=== PATIENT | female | born 1955 | race Caucasian/White ===

== ENCOUNTER → 2019-06-22 13:35 | Outpatient (CLI) | payer OTHER, SELFPAY ==
--- NOTE | ~2019-06-22 | MR_ITS ---
EXAMINATION: MR hand RT wo con DATE: 06/22/2019 14:26 INDICATION: Nondisplaced fracture of the right thumb. TECHNIQUE: Magnetic resonance imaging (MRI) of the right hand was performed without intravenous contr ast centered on the right thumb. The fifth digit and portions of the distal second fourth digits are excluded from the [id number]. Sequences included axial, sagittal and coronal T1-weighted FSE and T 2-weighted FS FSE . COMPARISON: None FINDINGS: Oblique linear low signal intensity minimally displaced intra-articular fracture at the base of the r ight first distal phalanx. The fracture can be best appreciated on coronal series 6, images 18-19 and at the articular surface on axial series 4 & 5, image 10. Likely reactive small joint effusion at th e first interphalangeal joint. Suggestion of at least mild osteoarthritis at the first interphalangea l joint with mild subarticular edema and small marginal osteophytes at both sides of the joint space. Additional mild osteoarthritis at the triscaphe, first carpometacarpal and at the visualized metacar pophalangeal and interphalangeal joints. No other fractures identified. The collateral ligament compl ex at the first metacarpophalangeal and interphalangeal joints appear to remain normal. There is mild thickening of the radial collateral ligament at the second metacarpophalangeal joint and to a lesser degree third metacarpophalangeal joint without discrete tear or associated edema suggesting chronic scarring. There is a small erosion versus suture anchor at the second metacarpal head footplate of th e radial collateral ligament which suggests either prior surgical repair or erosion in the setting of an inflammatory arthritis. Nonspecific mild increased signal along the flexor tendons to the second digit at the level of the mid to distal aspect of the proximal phalanx without evident thickening of the tendons or tear defect. IMPRESSION: 1. Minimally displaced intra-articular fracture at the base of the right first distal phalanx. 2. Mild polyarticular osteoarthritis at the radial aspect of the carpus and multiple metacarpal phala ngeal and interphalangeal joints. 3. Thickening of the radial collateral ligaments at the second and third metacarpophalangeal joints w ithout evident tear defect or surrounding edema to suggest acute injury. Small osseous defect at the insertion along the radial head of the second metatarsal which could represent either secondary erosi on related to prior trauma, primarily erosion related to inflammatory arthritis or suture anchor site s related to prior repair. Correlate with clinical and surgical history. 4. Increased signal along the flexor tendons to the second digit at the level of the mid to distal as pect of the proximal phalanx without significant thickening of the tendon consistent with mild tendin opathy without discrete tear. Reviewed, dictated and finalized at location A. FOUNDER AND CHIEF STRATEGY OFFICER IMPRESSION: 1. Minimally displaced intra-articular fracture at the base of the right first distal phalanx. 2. Mild polyarticular osteoarthritis at the radial aspect of the carpus and mul tiple metacarpal phalangeal and interphalangeal joints. 3. Thickening of the radial collateral ligaments at the second and third metaca rpophalangeal joints without evident tear defect or surrounding edema to sugges t acute injury. Small osseous defect at the insertion along the radial head of the second metatarsal which could represent either secondary erosion related to prior trauma, primarily erosion related to inflammatory arthritis or suture an chor sites related to prior repair. Correlate with clinical and surgical histor y. 4. Increased signal along the flexor tendons to the second digit at the level o f the mid to distal aspect of
== END ==
PROVIDERS: Visit Provider Surgery Plastic and Reconstructive Surgery
DX: S62.524A Nondisplaced fracture of distal phalanx of right thumb, initial encounter for closed fracture (principal); X58.XXXA Exposure to other specified factors, initial encounter; M19.071 Primary osteoarthritis, right ankle and foot
CPT/HCPCS: 73218

== ENCOUNTER → 2019-10-16 16:11 | Outpatient (REF) | payer OTHER, SELFPAY | LOC: ANHLAB 16:11 | PROVIDERS: PCP Family Medicine; Visit Provider Nurse Practitioner | DX: R22.9 Localized swelling, mass and lump, unspecified (principal) | CPT/HCPCS: 88304 ==

== ENCOUNTER → 2020-01-15 14:41 | Outpatient (REF) | payer MEDICARE, SELFPAY | LOC: ANHLAB 14:41 | PROVIDERS: PCP Family Medicine; Visit Provider Nurse Practitioner | DX: D23.72 Other benign neoplasm of skin of left lower limb, including hip (principal); D23.61 Other benign neoplasm of skin of right upper limb, including shoulder | CPT/HCPCS: 88304; 88305 ==

== ENCOUNTER → 2020-06-29 07:06 | Outpatient (CLI) | payer MEDICARE, SELFPAY ==
[2020-06-29 18:54] LABS: SARS-CoV-2 RNA PCR Negative
== END ==
PROVIDERS: PCP Family Medicine; Visit Provider Physician Assistant
DX: R05 Cough (principal); Z20.822 Contact with and (suspected) exposure to COVID-19
CPT/HCPCS: C9803; U0003; U0005

== ENCOUNTER → 2020-07-23 04:05 | Outpatient (CLI) | payer MEDICARE, SELFPAY ==
[2020-07-23 19:03] LABS: SARS-CoV-2 RNA PCR Negative
== END ==
PROVIDERS: PCP Family Medicine; Visit Provider Internal Medicine Gastroenterology
DX: Z01.812 Encounter for preprocedural laboratory examination (principal); Z20.822 Contact with and (suspected) exposure to COVID-19
CPT/HCPCS: C9803; U0003; U0005

== ENCOUNTER 2020-07-26 01:05 | Day surgery (SDC) | payer MEDICARE, SELFPAY ==
[2020-07-16 10:27] VITALS: BMI 35.7
[2020-07-26 06:18] VITALS: BP 128/75; PULSE 73; RESP 18; TEMP 35.6; O2SAT 98
[2020-07-26] MEDS: LACTATED RINGERS 1,000 ML 150 ML IV CONT (06:33)
[2020-07-26 06:36] LABS: Glucose Point of Care 114 (65-105)
--- NOTE | 2020-07-26 07:01 | WPDANESEPPF ---
Anes - Initial Pre Proc Eval Procedure: Operation Date: 07/26/20 07:30 Proposed Procedures p Screening Colonoscopy - Chago Duvall MD Date/Time: 07/26/20 07:01 Surgeon: Chago Duvall MD Pre Op Diagnosis: neoplasm screening Patient Data Age: 64 Gender: F Height: 5 ft Weight: 82.3 kg Last Vital Signs Temp 35.6 C L 07/26/20 06:18 Pulse 73 07/26/20 06:18 Resp 18 07/26/20 06:18 BP 128/75 07/26/20 06:18 Pulse Ox 98 07/26/20 06:18 Allergies Allergy/AdvReac Type Severity Reaction Status Date / Time No Known Allergies Allergy Verified 07/16/20 10:22 Home Medications Medication Instructions Recorded Confirmed Type cetirizine 10 mg capsule 10 mg PO DAILY 03/13/19 07/16/20 History chlorpheniramine maleate 4 mg 4 mg PO Q6H 03/13/19 07/16/20 History tablet multivitamin 1 tablet PO DAILY 03/13/19 07/16/20 History apremilast 30 mg tablet 30 mg PO QAM AND QPM #60 tablet 05/17/19 07/16/20 Rx blood sugar diagnostic #10 each 06/09/19 06/28/20 History lancets 33 gauge #100 each 06/09/19 06/28/20 History omeprazole 20 mg capsule,delayed See Rx Instructions .ROUTE 09/07/19 07/16/20 Rx release .COMPLEX #30 cap montelukast 10 mg tablet 10 mg PO DAILY #90 tablet 11/17/19 07/16/20 Rx atorvastatin 20 mg tablet 20 mg PO QPM tablet 02/28/20 07/16/20 History metformin 500 mg tablet,extended 500 mg PO BID 90 Days #180 tablet 02/28/20 07/16/20 Rx release 24 hr duloxetine 60 mg capsule,delayed 60 mg PO DAILY #90 cap 03/01/20 07/16/20 Rx release methocarbamol 750 mg tablet 750 mg PO TID #90 tablet 03/01/20 07/16/20 Rx ergocalciferol (vitamin D2) 1,250 See Rx Instructions .ROUTE 03/05/20 07/16/20 Rx mcg (50,000 unit) capsule .COMPLEX #12 cap spironolactone 25 mg tablet 25 mg PO DAILY #90 tablet 05/06/20 07/16/20 Rx levothyroxine 100 mcg tablet 100 mcg PO QAM 90 Days #90 tablet 05/10/20 07/16/20 Rx sodium,potassium,mag sulfates See Rx Instructions .ROUTE 05/24/20 06/28/20 Rx [Suprep Bowel Prep Kit] .COMPLEX #1 ml folic acid 1 mg tablet See Rx Instructions .ROUTE 06/19/20 07/16/20 Rx .COMPLEX #90 tablet fluticasone propionate 50 1 spray INTRANASAL DAILY #16 g 06/28/20 07/16/20 Rx mcg/actuation nasal spray,suspension losartan 25 mg tablet 25 mg PO DAILY 90 Days #90 tablet 07/10/20 07/16/20 Rx atenolol 50 mg PO DAILY 07/16/20 07/16/20 History Laboratory Tests 07/26/20 06:34 POC Capillary Glucose 114 mg/dl H mg/dl (65-105) Patient hx anesthesia problems: none Family hx anesthesia problems: none PMFSH Past Medical History Medical History BCC (basal cell carcinoma of skin) Generalized osteoarthritis of multiple sites Hypothyroidism, acquired Lymphedema Psoriasis Type 2 diabetes mellitus with hyperglycemia, without long-term current use of insulin Vitamin D deficiency Surgical History Surgical History History of basal cell carcinoma excision History of bilateral breast biopsy History of hand surgery R hand reconstruction History of thyroidectomy Family History Family History Sibling Patient's sister is in good health Patient's brother is in good health Family history of lymphoma, Onset Age: 31 Patient's brother is Mother Family history of diabetes mellitus in first degree relative Family history of irritable bowel syndrome Family history of thyroid disease Family history of cataracts Family history of anemia Father Family history of diabetes mellitus in first degree relative Patient's father is Other Diabetes mellitus Family history of allergic disorder Family history of arthritis Family history of attention deficit hyperactivity disorder (ADHD) Family history of malignant neoplasm Social History Social History (Reviewed 05/15
--- NOTE | 2020-07-26 07:11 | PM.HPGS ---
History of Present Illness History of Present Illness Consent: Risks, benefits, and alternatives have been discussed and questions answered. Patient agrees to proceed with procedure. Chief complaint: neoplasm screening Narrative: Radha Castaneda is a 64 year old female For screening colonoscopy Review of Systems Review of Systems: All systems reviewed & are unremarkable except as noted in HPI and below PMFSH Past Medical History Medical History BCC (basal cell carcinoma of skin) Generalized osteoarthritis of multiple sites Hypothyroidism, acquired Lymphedema Psoriasis Type 2 diabetes mellitus with hyperglycemia, without long-term current use of insulin Vitamin D deficiency Surgical History Surgical History History of basal cell carcinoma excision History of bilateral breast biopsy History of hand surgery R hand reconstruction History of thyroidectomy Family History Family History Sibling Patient's sister is in good health Patient's brother is in good health Family history of lymphoma, Onset Age: 31 Patient's brother is Mother Family history of diabetes mellitus in first degree relative Family history of irritable bowel syndrome Family history of thyroid disease Family history of cataracts Family history of anemia Father Family history of diabetes mellitus in first degree relative Patient's father is Other Diabetes mellitus Family history of allergic disorder Family history of arthritis Family history of attention deficit hyperactivity disorder (ADHD) Family history of malignant neoplasm Social History Social History Smoking status: Never smoker Second hand tobacco smoke exposure: No Alcohol intake: never Substance use: never Substance use type: does not use Living arrangements: with family Spiritual care concerns: No Meds Home Medications and Allergies Home Medications Medication Instructions Recorded Confirmed Type cetirizine 10 mg capsule 10 mg PO DAILY 03/13/19 07/16/20 History chlorpheniramine maleate 4 mg 4 mg PO Q6H 03/13/19 07/16/20 History tablet multivitamin 1 tablet PO DAILY 03/13/19 07/16/20 History apremilast 30 mg tablet 30 mg PO QAM AND QPM #60 tablet 05/17/19 07/16/20 Rx blood sugar diagnostic #10 each 06/09/19 06/28/20 History lancets 33 gauge #100 each 06/09/19 06/28/20 History omeprazole 20 mg capsule,delayed See Rx Instructions .ROUTE 09/07/19 07/16/20 Rx release .COMPLEX #30 cap montelukast 10 mg tablet 10 mg PO DAILY #90 tablet 11/17/19 07/16/20 Rx atorvastatin 20 mg tablet 20 mg PO QPM tablet 02/28/20 07/16/20 History metformin 500 mg tablet,extended 500 mg PO BID 90 Days #180 tablet 02/28/20 07/16/20 Rx release 24 hr duloxetine 60 mg capsule,delayed 60 mg PO DAILY #90 cap 03/01/20 07/16/20 Rx release methocarbamol 750 mg tablet 750 mg PO TID #90 tablet 03/01/20 07/16/20 Rx ergocalciferol (vitamin D2) 1,250 See Rx Instructions .ROUTE 03/05/20 07/16/20 Rx mcg (50,000 unit) capsule .COMPLEX #12 cap spironolactone 25 mg tablet 25 mg PO DAILY #90 tablet 05/06/20 07/16/20 Rx levothyroxine 100 mcg tablet 100 mcg PO QAM 90 Days #90 tablet 05/10/20 07/16/20 Rx sodium,potassium,mag sulfates See Rx Instructions .ROUTE 05/24/20 06/28/20 Rx [Suprep Bowel Prep Kit] .COMPLEX #1 ml folic acid 1 mg tablet See Rx Instructions .ROUTE 06/19/20 07/16/20 Rx .COMPLEX #90 tablet fluticasone propionate 50 1 spray INTRANASAL DAILY #16 g 06/28/20 07/16/20 Rx mcg/actuation nasal spray,suspension losartan 25 mg tablet 25 mg PO DAILY 90 Days #90 tablet 07/10/20 07/16/20 Rx atenolol 50 mg PO DAILY 07/16/20 07/16/20 History Allergies Allergy/AdvReac Type Severity Reaction Status Date /
[2020-07-26 07:57] VITALS: BP 107/70; PULSE 72; RESP 21; O2SAT 100
[2020-07-26 08:07] VITALS: BP 103/66; PULSE 67; RESP 13; O2SAT 100
[2020-07-26 08:17] VITALS: BP 116/72; PULSE 68; RESP 16; O2SAT 100
== END 2020-07-26 08:45 | disposition home or self-care (01) ==
PROVIDERS: PCP Family Medicine; Visit Provider Internal Medicine Gastroenterology
PROC: 0DJD8ZZ Inspection of Lower Intestinal Tract, Via Natural or Artificial Opening Endoscopic (ICD-10-PCS; CPT 45378; principal; 2020-07-26 07:30)
DX: Z12.11 Encounter for screening for malignant neoplasm of colon (principal); D12.4 Benign neoplasm of descending colon; K63.5 Polyp of colon; Z79.84 Long term (current) use of oral hypoglycemic drugs; E03.9 Hypothyroidism, unspecified; M19.90 Unspecified osteoarthritis, unspecified site; I89.0 Lymphedema, not elsewhere classified; E55.9 Vitamin D deficiency, unspecified; E11.65 Type 2 diabetes mellitus with hyperglycemia; L40.9 Psoriasis, unspecified; E66.9 Obesity, unspecified; Z68.35 Body mass index [BMI] 35.0-35.9, adult; Z85.828 Personal history of other malignant neoplasm of skin
CPT/HCPCS: 45385; 45380; 82948; 88305; J2704; J7120

== ENCOUNTER 2021-03-28 09:00 | Outpatient (CLI) | payer MEDICARE, SELFPAY ==
--- NOTE | ~2021-03-28 | MM_ITS ---
EXAMINATION: MM screening seema BI w hayley HISTORY: Screening TECHNIQUE: Craniocaudal and mediolateral oblique 3-D tomosynthesis images were obtained and synthetic 2-D images were generated. CAD analysis was submitted and interpreted. COMPARISON: Comparison to multiple prior studies sequentially, with oldest reviewed study dated 02/17. BREAST PARENCHYMAL COMPOSITION: There are scattered areas of fibroglandular density. FINDINGS: There is no evidence of suspicious mass, calcification, or architectural distortion to sugg est malignancy in either breast. There has been no suspicious interval change. IMPRESSION: 1. No mammographic evidence of malignancy. 2. Recommend routine screening mammography in one year. BI-RADS Category 1: Negative Reviewed, dictated and finalized at location A. ARYNGOLOGY NURSE
--- NOTE | ~2021-03-28 | DEXA_ITS ---
Bone Density Report Name: PINKY ZAPATA Age: 65 Sex: Female Ethnicity: White Date of : 1955 Indication: postmenopausal; height loss; hysterectomy; rheumatoid arthritis; Referring Provider: Sharon Yanes Study: Bone densitometry was performed. Exam Date: March 28, 2021 Accession number: [id number] Bone Density: Region BMD T-score Z-score Classification AP Spine (L1-L4) 1.007 -0.4 1.5 Normal Femoral Neck (Left) 0.838 -0.1 1.5 Normal Total Hip (Left) 1.011 0.6 1.9 Normal Total Hip Bilateral Avg 1.014 0.6 1.9 Normal Femoral Neck (Right) 0.782 -0.6 1.0 Normal Total Hip (Right) 1.017 0.6 1.9 Normal World Health Organization criteria for BMD impression classify patients as: Normal (T-score at or above -1.0), Osteopenia (T-score between -1.0 and -2.5), or Osteoporosis (T-score at or below -2.5). 10-year Fracture Risk: FRAX not reported because: All T-scores for Spine Total, Hip Total, Femoral Neck at or above -1.0 Previous Exams: Region Exam Age BMD T-score BMD Change BMD Change Date g/cm2 vs Baseline vs Previous AP Spine(L1-L4) 03/28/2021 65 1.007 -0.4 -0.079(-7.3%)# -0.003(-0.3%) 09/05/2018 62 1.010 -0.3 -0.076(-7.0%)# -0.009(-0.8%)# 03/31/2014 58 1.018 -0.3 -0.067(-6.2%)# -0.068(-6.2%)# 06/04/2008 52 1.086 0.4 Total Hip(Left) 03/28/2021 65 1.011 0.6 -0.042(-4.0%)# -0.024(-2.3%) 09/05/2018 62 1.035 0.8 -0.018(-1.7%)# -0.014(-1.4%)# 03/31/2014 58 1.049 0.9 -0.004(-0.4%)# -0.004(-0.4%)# 06/04/2008 52 1.053 0.9 Total Hip(Right) 03/28/2021 65 1.017 0.6 0.015(1.5%)# -0.038(-3.6%)* 09/05/2018 62 1.055 0.9 0.054(5.4%)# -0.025(-2.3%)# 03/31/2014 58 1.080 1.1 0.079(7.9%)# 0.079(7.9%)# 06/04/2008 52 1.001 0.5 *Denotes significance at 95% confidence level, LSC for AP Spine = 0.022 g/cm2, LSC for Total Hip = 0.027 g/cm2 Clinical Information Provided by Patient: Has rheumatoid arthritis Has used the following medications: Vitamin D Has the following medical conditions: Hysterectomy Patient maximum height was 60 Menopause Age: 44 Drinks caffeinated beverages Onset of menses at age 11 Number of children 2 Impression: The patient has normal bone mass. The BMD for the Total Hip(Right) decreased, changing by -3.6% since the last DXA exam. Discussion: BONE DENSITY IS ABOVE THE MINIMUM DESIRABLE LEVEL AT ALL SKELETAL SITES TESTED. This patient?s bone min
== END 2021-03-28 09:01 | disposition home or self-care (01) ==
PROVIDERS: PCP Family Medicine; Visit Provider Internal Medicine Endocrinology, Diabetes & Metabolism
DX: Z12.31 Encounter for screening mammogram for malignant neoplasm of breast (principal); Z78.0 Asymptomatic menopausal state
CPT/HCPCS: 77063; 77067; 77080

== ENCOUNTER → 2021-04-29 00:55 | Outpatient (CLI) | payer MEDICARE, SELFPAY ==
[2021-04-29 15:13] LABS: Influenza Control Positive
[2021-04-29 21:02] LABS: SARS-CoV-2 RNA PCR Negative
== END ==
PROVIDERS: PCP Family Medicine; Visit Provider Physician Assistant
DX: R50.9 Fever, unspecified (principal); Z20.822 Contact with and (suspected) exposure to COVID-19
CPT/HCPCS: 87804; C9803; U0003; U0005

== ENCOUNTER → 2022-08-04 09:28 | Outpatient (CLI) | payer MEDICARE, SELFPAY ==
--- NOTE | ~2022-08-04 | XR_ITS ---
Clinical Indication: Cough PA and lateral views of the chest: Comparison: 01/22/2015 Findings: The lungs are clear, without evidence of focal consolidation or pleural effusion. Cardiome diastinal silhouette is within normal limits. Bones and soft tissues are unremarkable. Impression: Normal chest. Reviewed, dictated and finalized at [facility]. Impression: Normal chest.
== END ==
PROVIDERS: PCP Family Medicine; Visit Provider Physician Assistant Medical
DX: R06.2 Wheezing (principal); R05.9 Cough, unspecified; E11.9 Type 2 diabetes mellitus without complications
CPT/HCPCS: 71046

== ENCOUNTER → 2022-08-06 13:07 | Outpatient (CLI) | payer MEDICARE, SELFPAY ==
--- NOTE | ~2022-08-06 | US_ITS ---
US abdomen complete EXAMINATION: US Abdomen Complete INDICATION: Abdomen pain and swelling. Family history of pancreatic cancer. PROCEDURE: Realtime High Resolution abdomen ultrasound. COMPARISON: CT dated 01/03/2009 FINDINGS: Gallbladder within normal limits. No gallstones, pericholecystic fluid, gallbladder wall t hickening or biliary dilatation. Common bile duct measures 5.8 mm. Liver echotexture within normal limits without focal mass. Pancreas within normal limits. Pancreati c tail is obscured by bowel gas. Spleen is unremarkeable. Renal echotexture is within normal limits bilaterally without hydronephrosis, contour deforming mass or renal stone. Right kidney measures 11.5 cm. Left kidney measures 10.8 cm. Visualized aspects of the aorta and IVC are within normal limits. Portal vein is patent. No sonograph ic Carroll's sign indicated by the technologist. IMPRESSION: 1: Normal abdominal ultrasound. Reviewed, dictated and finalized at location A.
== END ==
PROVIDERS: PCP Family Medicine; Visit Provider Family Medicine
DX: R19.00 Intra-abdominal and pelvic swelling, mass and lump, unspecified site (principal)
CPT/HCPCS: 76700

== ENCOUNTER 2022-11-30 12:53 | Outpatient (CLI) | payer MEDICARE, SELFPAY ==
[2022-11-30 14:46] LABS: Influenza A QL RT-PCR Negative (Negative); Influenza B QL RT-PCR Negative (Negative); RSV RNA, RT-PCR Negative (Negative); SARS-CoV-2 RNA PCR Negative (Negative)
== END 2022-11-30 12:54 | disposition home or self-care (01) ==
LOC: ANHLAB 12:54
PROVIDERS: PCP Family Medicine; Visit Provider Physician Assistant
DX: Z20.822 Contact with and (suspected) exposure to COVID-19 (principal)
CPT/HCPCS: 87637

== ENCOUNTER 2022-12-22 15:48 | Outpatient (CLI) | payer MEDICARE, SELFPAY ==
[2022-12-22 16:42] LABS: Influenza A QL RT-PCR Negative (Negative); Influenza B QL RT-PCR Negative (Negative); RSV RNA, RT-PCR Negative (Negative); SARS-CoV-2 RNA PCR Negative (Negative)
== END 2022-12-22 15:49 | disposition home or self-care (01) ==
LOC: ANHLAB 15:57
PROVIDERS: PCP Family Medicine; Visit Provider Physician Assistant Medical
DX: U07.1 COVID-19 (principal)
CPT/HCPCS: 87637

== ENCOUNTER → 2023-02-08 13:47 | Outpatient (CLI) | payer MEDICARE, SELFPAY ==
--- NOTE | ~2023-02-08 | CT_ITS ---
EXAMINATION: CT sinus wo con DATE: 02/08/2023 14:20 INDICATION: Chronic sinusitis TECHNIQUE: Computed tomography (CT) of the paranasal sinuses was performed without intravenous contra st. The dose-length product was 386.65 mGy-cm. Automated exposure control and iterative reconstructio n technique were employed. COMPARISON: CT dated 07/05/2008 FINDINGS: There is mild left maxillary sinus mucosal thickening. Ostiomeatal units are patent. Leftwa rd nasal septal deviation. There is mild hypertrophy of the turbinates. No air-fluid levels. No signi ficant mucoperiosteal reaction. IMPRESSION: 1. The left maxillary sinus disease. Reviewed, dictated and finalized at location B.
== END ==
PROVIDERS: PCP Family Medicine; Visit Provider Otolaryngology
DX: J32.9 Chronic sinusitis, unspecified (principal); J30.9 Allergic rhinitis, unspecified; J34.2 Deviated nasal septum; J34.3 Hypertrophy of nasal turbinates; R09.81 Nasal congestion
CPT/HCPCS: 70486

== ENCOUNTER → 2023-02-08 13:53 | Outpatient (CLI) | payer MEDICARE, SELFPAY ==
--- NOTE | ~2023-02-08 | XR_ITS ---
AP and oblique views of the SI joints CLINICAL HISTORY: Back pain FINDINGS: There is mild degenerative change of the bilateral SI joints. No erosive or inflammatory ar thropathy evident. Bilateral hip joints appear intact. Soft tissues are unremarkable. No acute fractu re. IMPRESSION: Mild degenerative change of the bilateral SI joints. Reviewed, dictated and finalized at location .
== END ==
PROVIDERS: PCP Family Medicine; Visit Provider Internal Medicine
DX: J32.9 Chronic sinusitis, unspecified (principal); L40.50 Arthropathic psoriasis, unspecified
CPT/HCPCS: 72202

== ENCOUNTER 2023-04-16 08:26 | Outpatient (CLI) | payer MEDICARE, SELFPAY ==
--- NOTE | ~2023-04-16 | US_ITS ---
EXAMINATION:US venous doppler LE BI INDICATION:Lower extremity pain and swelling TECHNIQUE: Multiple grayscale, color flow and Doppler images of the right and left lower extremity de ep venous systems were obtained and reviewed. COMPARISON:No prior studies for comparison. FINDINGS: The common femoral, superficial femoral and popliteal veins demonstrate normal respiratory variation, augmentation and compressibility. Color flow is also seen within the posterior tibial, pe roneal, greater saphenous and profunda veins. IMPRESSION: 1: No lower extremity deep venous thrombosis. Reviewed, dictated and finalized at location A. INUM HYDROXIDE PROCESS OPERATOR
== END 2023-04-16 08:27 | disposition home or self-care (01) ==
PROVIDERS: PCP Family Medicine; Visit Provider Family Medicine
DX: M79.661 Pain in right lower leg (principal); M79.662 Pain in left lower leg; I89.0 Lymphedema, not elsewhere classified
CPT/HCPCS: 93970

== ENCOUNTER 2023-04-16 12:55 | Outpatient (CLI) | payer MEDICARE, SELFPAY ==
--- NOTE | ~2023-04-16 | XR_ITS ---
EXAMINATION: XR chest 2V DATE: 04/16/2023 13:03 INDICATION: Cough, upper respiratory congestion TECHNIQUE: PA and lateral views of the chest are obtained. COMPARISON: 08/04/2022 FINDINGS: The lungs are free of acute opacities. No pleural effusion or pneumothorax. The cardiomedia stinal silhouette is normal. There is moderate thoracic spondylosis. IMPRESSION: 1. No acute cardiopulmonary abnormality. Reviewed, dictated and finalized at location B. E DELIVERY CLERK
== END 2023-04-16 12:56 | disposition home or self-care (01) ==
PROVIDERS: PCP Family Medicine; Visit Provider Nurse Practitioner Family
DX: R05.9 Cough, unspecified (principal); R06.09 Other forms of dyspnea
CPT/HCPCS: 71046

== ENCOUNTER 2023-04-23 10:21 | Outpatient (CLI) | payer MEDICARE, SELFPAY ==
--- NOTE | 2023-04-23 10:29 | ECG_ITS ---
Measurements Intervals [place] Rate: 95 P: 38 PA: 177 QRS: -22 QRSD: 80 T: 24 QT: 344 QTc: 434 Interpretive Statements SINUS RHYTHM LOW QRS VOLTAGE IN PRECORDIAL LEADS BORDERLINE R WAVE PROGRESSION, ANTERIOR LEADS CONSIDER INFERIOR INFARCT, AGE INDETERMINATE BASELINE ARTIFACT- I, II, III, AVR, AVL, AVF, V1 ABNORMAL ECG NO PREVIOUS ECG AVAILABLE FOR COMPARISON Electronically Signed On 04-23-2023 11:07:24 SILK SCREEN PRINTER MACHINE by Brent Issa D.O.
== END 2023-04-23 10:22 | disposition home or self-care (01) ==
LOC: ANHSURGERY 10:26
PROVIDERS: PCP Family Medicine; Visit Provider Otolaryngology
DX: I10 Essential (primary) hypertension (principal); Z01.818 Encounter for other preprocedural examination
CPT/HCPCS: 93005

== ENCOUNTER 2023-04-27 00:09 | Day surgery (SDC) | payer MEDICARE, SELFPAY ==
--- NOTE | 2023-04-22 15:41 | PC.NURSE ---
Report to the Outpatient Waiting Room, entrance under the green pavilion located off [facility], at time _0630 on date __04/27/23 . Planned Procedure Time: ___829 . Time changes happen often and if your time is changed the preop area will call you the afternoon before. - You and your visitor will be asked to self-screen and do not enter if you have any COVID symptoms. - A mask is optional within the hospital at this time. Patients may have clear liquids (water, carbonated beverages, clear teas, apple juice) until 3 hours prior to surgery ( 5:30 AM)with a maximum of 20 ounces. - No food from midnight until time of surgery - Infants may have breast milk until 4 hours before surgery, infant formula 6 hours prior to surgery. - Children will be allowed to drink immediately following surgery. If applicable, please bring a bottle or sippy cup to assist with drinking. Juice, water, soda, and popsicles are readily available. For infants on formula, please bring formula the day of surgery. Pacifiers are allowed. Take the following medications with a SIP of water the morning of surgery: __ADVAIR INHALER,,LEVOTHYROXINE DO NOT STOP ANY OF YOUR OTHER PRESCRIPTION MEDICATIONS PRIOR TO SURGERY ?EXCEPT THE FOLLOWING Medications to discontinue per physician ____NONE Please no make-up, nail vietnamese, hairspray, perfume, deodorant, or body powder the day of surgery. No jewelry (including any body piercings) or valuables the day of surgery, leave them at home. Please take a shower or bath the night before, or the morning of, surgery with an antibacterial soap. Wear comfortable, loose fitting clothing. Children are encouraged to wear pajamas. - Jewelry must be removed prior to entering the operating room. Rings and piercings that are not removed may be cut off. - The hospital will not accept responsibility for valuables. - Please leave all valuables, including medications, at home the day of surgery. If you are going home after surgery, a licensed nascar driver must drive you home. - NO public transportation without another adult if you receive anesthesia. - We recommend that an adult stay with you for 24 hours following discharge. - We also recommend that you do not drive, make important decision, drink alcoholic beverages, or take any drugs that were not prescribed by your health care provider for at least 24 hours after your discharge time. For Pediatric surgeries, we recommend two adults accompany the child home. Follow any additional instructions given to you from your surgeon. If you or anyone in your household have experienced Covid symptoms in the past week, please notify your surgeon or the nurse liaison at the phone number below for possible testing. Telephone instructions given to _PATIENT and asked if any additional questions and then verbalized understanding. Patient advised to call surgeon office or pre surgery nurse liaison [phone] if any additional questions.
[2023-04-22 15:48] VITALS: BMI 39.4
--- NOTE | 2023-04-26 17:36 | PM.IMHP ---
H&P: HPI History of Present Illness Date/Time: 04/26/23 17:36 Chief Complaint: nasal congestion nasal obstruction septal deviation turbinate hypertrophy chronic sinus Review of Systems Review of Systems: All systems reviewed & are unremarkable except as noted in HPI and below [facility] Past Medical History Medical History (Updated 04/16/23 @ 21:56 by Tara Arrieta MD) BCC (basal cell carcinoma of skin) Dermatofibroma Gastroesophageal reflux Generalized osteoarthritis of multiple sites Hypertension Hypothyroidism, acquired Lymphedema Mixed hyperlipidemia Postoperative hypothyroidism Psoriasis Type 2 diabetes mellitus with hyperglycemia, without long-term current use of insulin Vitamin B12 deficiency Vitamin D deficiency Surgical History Surgical History History of basal cell carcinoma excision History of bilateral breast biopsy History of hand surgery R hand reconstruction History of thyroidectomy Family History Family History Sibling Patient's sister is in good health Patient's brother is in good health Family history of lymphoma, Onset Age: 31 Patient's brother is Mother Family history of diabetes mellitus in first degree relative Family history of irritable bowel syndrome Family history of thyroid disease Family history of cataracts Family history of anemia Father Family history of diabetes mellitus in first degree relative Patient's father is Other Diabetes mellitus Family history of allergic disorder Family history of arthritis Family history of attention deficit hyperactivity disorder (ADHD) Family history of malignant neoplasm Social History Social History Smoking status: Never smoker Second hand tobacco smoke exposure: No Alcohol intake: never Substance use: never Substance use type: does not use Lack of Transportation: No Lack of Food: Never True Current Housing: I Have Housing Concerned About Future Housing: No Difficulty Paying Gas/Electric Bills: No Difficulty Paying for Meds: No Currently Unemployed: No Education: Decline to Answer Difficulty w/ Childcare or Family Care: No Living arrangements: with family Occupation/Education: retired Gender identity (if verbalized by the patient): Female Spiritual care concerns: No Meds Home Medications and Allergies Home Medications Medication Instructions Recorded Confirmed Type blood sugar diagnostic (OneTouch #10 ea 06/09/19 04/16/23 History Verio test strips) lancets 33 gauge (OneTouch Delica #100 ea 06/09/19 04/16/23 History Lancets) spironolactone 25 mg tablet 25 mg PO DAILY #90 tabs 10/28/20 04/22/23 Rx ergocalciferol (vitamin D2) 1,250 See Rx Instructions .Route 10/17/21 04/22/23 Rx mcg (50,000 unit) capsule (Vitamin .COMPLEX #12 caps D2) chlorpheniramine maleate 4 mg 4 mg PO Q6H PRN Allergy Symptoms 08/26/22 04/22/23 History tablet (Allergy (chlorpheniramine)) albuterol sulfate 90 mcg/actuation 1 inh inhalation Q4H PRN shortness 10/21/22 04/22/23 Rx aerosol inhaler of breath or wheezing #8.5 grams fluticasone 250 mcg-salmeterol 50 1 inh inhalation BID #180 ea 12/01/22 04/22/23 Rx mcg/dose blistr powdr for inhalation (Advair Diskus) atorvastatin 10 mg tablet 10 mg PO QHS 3 months #90 tabs 01/06/23 04/22/23 Rx levothyroxine 88 mcg tablet 88 mcg PO DAILY 3 months #90 tabs 01/06/23 04/22/23 Rx azelastine 137 mcg (0.1 %) nasal 2 spray intranasal Q12H #30 mL 01/07/23 04/22/23 Rx spray aerosol atenolol 25 mg tablet 25 mg PO DAILY #90 tabs 01/10/23 04/22/23 Rx metformin 500 mg tablet,extended See Rx Instructions .Route 01/13/23 04/22/23 Rx release 24 hr .COMPLEX #360 tabs fexofenadine 180 mg tablet 180 mg PO DAILY #30 tabs 01/21/23 04/22/23 Rx (Allergy Re
[2023-04-27] VITALS (9 sets, daily range): BP systolic 148–163; BP diastolic 79–95; PULSE 92–102; RESP 12–18; TEMP 36.2–36.7; O2SAT 91–98
[2023-04-27] MEDS: ACETAMINOPHEN 500 MG TABLET 1000 MG PO (06:59)
--- NOTE | 2023-04-27 07:18 | WPDANESEPPF ---
Anes - Initial Pre Proc Eval Procedure: Operation Date: 04/27/23 08:30 Proposed Procedures p Image Guided Bilateral Inferior Turbinate Reduction with Outfracture, Possible Middle Turbinectomy, Bilateral Maxillary Antrostomy - Clifton Dodson MD s Possible Septoplasty - Clifton Dodson MD Date/Time: 04/27/23 07:18 Surgeon: Clifton Dodson MD Pre Op Diagnosis: Turbin Hypertrophy, Chr Sinusitis,Septal Dev (cont Patient Data Age: 67 Gender: F Height: 1.5 m Weight: 88.45 kg Allergies Allergy/AdvReac Type Severity Reaction Status Date / Time No Known Allergies Allergy Verified 04/27/23 06:57 Home Medications Medication Instructions Recorded Confirmed Type blood sugar diagnostic (OneTouch #10 ea 06/09/19 04/16/23 History Verio test strips) lancets 33 gauge (OneTouch Delica #100 ea 06/09/19 04/16/23 History Lancets) spironolactone 25 mg tablet 25 mg PO DAILY #90 tabs 10/28/20 04/22/23 Rx ergocalciferol (vitamin D2) 1,250 See Rx Instructions .Route 10/17/21 04/22/23 Rx mcg (50,000 unit) capsule (Vitamin .COMPLEX #12 caps D2) chlorpheniramine maleate 4 mg 4 mg PO Q6H PRN Allergy Symptoms 08/26/22 04/22/23 History tablet (Allergy (chlorpheniramine)) albuterol sulfate 90 mcg/actuation 1 inh inhalation Q4H PRN shortness 10/21/22 04/22/23 Rx aerosol inhaler of breath or wheezing #8.5 grams fluticasone 250 mcg-salmeterol 50 1 inh inhalation BID #180 ea 12/01/22 04/22/23 Rx mcg/dose blistr powdr for inhalation (Advair Diskus) atorvastatin 10 mg tablet 10 mg PO QHS 3 months #90 tabs 01/06/23 04/22/23 Rx levothyroxine 88 mcg tablet 88 mcg PO DAILY 3 months #90 tabs 01/06/23 04/22/23 Rx azelastine 137 mcg (0.1 %) nasal 2 spray intranasal Q12H #30 mL 01/07/23 04/22/23 Rx spray aerosol atenolol 25 mg tablet 25 mg PO DAILY #90 tabs 01/10/23 04/22/23 Rx metformin 500 mg tablet,extended See Rx Instructions .Route 01/13/23 04/22/23 Rx release 24 hr .COMPLEX #360 tabs fexofenadine 180 mg tablet 180 mg PO DAILY #30 tabs 01/21/23 04/22/23 Rx (Allergy Relief (fexofenadine)) lymphedema clinic #1 ea 03/10/23 04/16/23 Rx fluticasone propionate 50 2 - 3 spray intranasal BID #16 mL 03/18/23 04/22/23 Rx mcg/actuation nasal spray,suspension (Flonase Allergy Relief) losartan 25 mg tablet See Rx Instructions .Route 03/26/23 04/22/23 Rx .COMPLEX #90 tabs omeprazole 40 mg capsule,delayed 40 mg PO DAILY #30 caps 04/15/23 04/22/23 Rx release prednisone 5 mg tablet 5 mg PO .COMPLEX #4 tabs 04/24/23 04/24/23 Rx Patient hx anesthesia problems: post op nausea/vomiting Family hx anesthesia problems: post op nausea/vomiting Results Review: All pre-operative results and documents have been reviewed as part of the pre-operative evaluation. [facility] Past Medical History Medical History BCC (basal cell carcinoma of skin) Dermatofibroma Gastroesophageal reflux Generalized osteoarthritis of multiple sites Hypertension Hypothyroidism, acquired Lymphedema Mixed hyperlipidemia Postoperative hypothyroidism Psoriasis Type 2 diabetes mellitus with hyperglycemia, without long-term current use of insulin Vitamin B12 deficiency Vitamin D deficiency Surgical History Surgical History History of basal cell carcinoma excision History of bilateral breast biopsy History of hand surgery R hand reconstruction History of thyroidectomy Family History Family History Sibling Patient's sister is in good health Patient's brother is in good health Family history of lymphoma, Onset Age: 31 Patient's brother is Mother Family history of diabetes mellitus in first degree relative Family history of irritable bowel syndrome Family history of thyroid disease Family history of cataracts Family history of anemia Father Dec
[2023-04-27] MEDS: LACTATED RINGERS 1,000 ML 30 ML IV CONT ×2 (07:30→10:49)
[2023-04-27 07:40] LABS: Glucose Point of Care 139 mg/dl (65-105)
--- NOTE | 2023-04-27 07:47 | WPDHPUPDATE1 ---
History and Physical Update Update Date/Time: 04/27/23 07:47 History and Physical has been reviewed, including an updated exam of the patient. There are NO changes in the patient's condition. Risks, benefits, and alternatives have been discussed and questions answered. Patient agrees to proceed with procedure.
[2023-04-27] MEDS: ceFAZolin 2 GM/D5W 50 ML 2 GM/50 ML BAG IVPB (08:41)
[2023-04-27] MEDS: OXYMETAZOLINE HCL 0.05% NAS 15 ML BTL (*BKC) 1 SPRAY NASAL (08:49)
[2023-04-27] MEDS: LIDO 1%/EPINEPHRINE 1:100,000 50 ML VIAL INFILTRATE (08:49)
[2023-04-27 11:00] LABS: Glucose Point of Care 150 mg/dl (65-105)
[2023-04-27] MEDS: SCOPOLAMINE 1 MG PATCH 1 PATCH TRANSDERM (11:00)
[2023-04-27] MEDS: fentaNYL CITRATE INJ (*CRX) 100 MCG/2 ML VIAL 25 MCG IV PUSH (11:14)
--- NOTE | 2023-04-27 11:14 | W.PM.PROC2 ---
Procedure Note - Detailed Date of Procedure 04/27/23 Pre-op Diagnosis Turbin Hypertrophy, Chr Sinusitis,Septal Dev (cont Post-op Diagnosis Same Procedure Performed bilateral middle turbinectomy, inferior turbinate reduction with outfracture bilaterally, endoscopic assisted septoplasty, bilateral image guided endoscopic maxillary antrostomies Surgeon Clifton Dodson MD Anesthesia General Indications see above Findings polypoid disease tissue on the bilateral middle turbinates bilateral disease tissue in the maxillary sinuses left greater than right. Hypertrophied inferior turbinates left septal deviation Description of Procedure patient identified consent verified preop. Patient brought to the operating room. Time-out performed. General anesthesia induced endotracheal tube secured. Patient prepped draped position procedure confirmed 2nd time-out performed. Image guidance initiated and confirmed. Afrin-soaked pledgets placed bilaterally for 5 minutes and removed. 0 degree scope and a utilized. Septal deviation noted. Total 15 cc 1% lidocaine 1 100,000 parts epinephrine checked in the bilateral nasal septum middle turbinates toxin inferior turbinates. [place] incision made left side. Left nasal septal flap elevated. Osteotome this crust. Right nasal septal flap elevated no perforations the stone 7 Green[place] suction. Deviated septum removed Mani forceps just Castillo forceps and osteotome. Bleeding from the cancellous portion of the septum FloSeal placed no further bleeding. [place] incision closed 4 interrupted 5 0 fast gut sutures. Inferior turbinates reduced submucosal plane using microdebrider 2.5 Dorothea blade. There then outfractured. Very large mulberry tips cauterized bilaterally Bovie suction electrocautery setting of 15. Maxillary a trip back middle turbinectomies performed with straight through cut, this was bilateral, and Mani forceps stalks were cauterized Bovie suction electrocautery at a setting of 15. The middle turbinates had a lot of polypoid edema or touching essentially the septum and lateral nasal zepeda even after septoplasty. Maxillary antrostomies performed with image guidance backbiter double ball tip probe image guided microdebrider straight through cut and stump recur down biting instrument placed. Nova pack placed bilaterally. Rdz splints placed bilaterally sutured anteriorly using a 3 0 mattress nylon suture. Total blood loss was about 25 cc. Patient tolerated the procedure very well. Patient given Anesthesiology patient taken to PACU. Estimated Blood Loss 25 Drains No Packing Yes ( Nova pack) Pathology None sent Complications No immediate complications Condition Stable Disposition PACU [facility] Billing Surgery - Charge Forward: Surgery Billing
[2023-04-27] MEDS: oxyCODONE HCL (*CRX) 2.5 MG TAB IR PO (12:15)
== END 2023-04-27 13:25 | disposition home or self-care (01) ==
PROVIDERS: PCP Family Medicine; Visit Provider Otolaryngology
PROC: (CPT 31256; principal; 2023-04-27 08:30)
PROC: (CPT 30520; 2023-04-27 08:30)
DX: J32.0 Chronic maxillary sinusitis (principal); J34.3 Hypertrophy of nasal turbinates; J34.2 Deviated nasal septum; J33.8 Other polyp of sinus; R09.81 Nasal congestion; I10 Essential (primary) hypertension; E78.2 Mixed hyperlipidemia; E89.0 Postprocedural hypothyroidism; E11.9 Type 2 diabetes mellitus without complications; K21.9 Gastro-esophageal reflux disease without esophagitis; E55.9 Vitamin D deficiency, unspecified; E53.8 Deficiency of other specified B group vitamins; I89.0 Lymphedema, not elsewhere classified; Z79.84 Long term (current) use of oral hypoglycemic drugs; Z79.51 Long term (current) use of inhaled steroids
CPT/HCPCS: 31256; 61782; 30520; 30140; 82948; 93005; A9270; J0690; J2250; J2405; J2704; J3010; J7050; J7120

== ENCOUNTER 2023-06-15 12:52 | Outpatient (CLI) | payer MEDICARE, SELFPAY ==
[2023-06-15 13:53] LABS: Anion Gap 7 mmol/L (8-16); Blood Urea Nitrogen 12 mg/dL (7-17); Calcium 9.5 mg/dL (8.4-10.2); Carbon Dioxide 28 mmol/L (22-30); Chloride 102 mmol/L (98-107); Estimated Glomerular Filt Rate > 60; Glucose 130 mg/dL (65-110); Potassium 3.7 mmol/L (3.4-5.0); Sodium 137 mmol/L (137-145)
== END 2023-06-15 12:53 | disposition home or self-care (01) ==
LOC: ANHSURGERY 12:53
PROVIDERS: Anesthesiology; PCP Family Medicine; Visit Provider Otolaryngology
DX: E11.9 Type 2 diabetes mellitus without complications (principal); Z01.818 Encounter for other preprocedural examination
CPT/HCPCS: 36415; 80048

== ENCOUNTER 2023-06-15 13:46 | Outpatient (CLI) | payer MEDICARE, SELFPAY ==
--- NOTE | ~2023-06-15 | CT_ITS ---
EXAMINATION: CT diagnostic chest wo con DATE: 06/15/2023 14:13 INDICATION: Chronic cough TECHNIQUE: Computed tomography (CT) of the chest was performed without intravenous contrast. The dose -length product (DLP) was 222.61 mGy-cm. 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 COMPARISON: 04/07/2014 FINDINGS: There are multiple nodules scattered throughout the lungs with little interval change since the comparison examination, most consistent with old granulomatous disease. The largest measures 7 m m in the left upper lobe. The lungs are free of acute opacities. No pleural effusion or pneumothorax. No pathologically enlarged thoracic lymph nodes are identified. The heart size is normal. There is m oderate thoracic spondylosis. IMPRESSION: 1. No CT correlate for the patient's symptoms. Reviewed, dictated and finalized at location L. ITECTURE TECHNICIAN
== END 2023-06-15 13:47 | disposition home or self-care (01) ==
PROVIDERS: PCP Family Medicine; Visit Provider Nurse Practitioner Family
DX: R05.3 Chronic cough (principal)
CPT/HCPCS: 71250

== ENCOUNTER 2023-06-22 01:17 | Day surgery (SDC) | payer MEDICARE, SELFPAY ==
--- NOTE | 2023-06-14 13:35 | PC.NURSE ---
Report to the Outpatient Waiting Room, entrance under the green pavilion located off [facility], at time _1100 on date _06/22/23 . Planned Procedure Time: _1:00 PM . Time changes happen often and if your time is changed the preop area will call you the afternoon before. - You and your visitor will be asked to self-screen and do not enter if you have any COVID symptoms. - A mask is optional within the hospital at this time. Patients may have clear liquids (water, carbonated beverages, clear teas, apple juice) until 3 hours prior to surgery( 10 AM) with a maximum of 20 ounces. - No food from midnight until time of surgery - Infants may have breast milk until 4 hours before surgery, formula 6 hours prior to surgery. - Children will be allowed to drink immediately following surgery. If applicable, please bring a bottle or sippy cup to assist with drinking. Juice, water, soda, and popsicles are readily available. For infants on formula, please bring formula the day of surgery. Pacifiers are allowed. Take the following medications with a SIP of water the morning of surgery: ___LEVOTHYROXINE DO NOT STOP ANY OF YOUR OTHER PRESCRIPTION MEDICATIONS PRIOR TO SURGERY ?EXCEPT THE FOLLOWING Medications to discontinue per physician ____ALL VITAMINS AND SUPPLEMENTS 3 DAYS PRE OP .LAST DOSE 06/17/23 Please no make-up, nail yoruba, hairspray, perfume, deodorant, or body powder the day of surgery. No jewelry (including any body piercings) or valuables the day of surgery, leave them at home. Please take a shower or bath the night before, or the morning of, surgery with an antibacterial soap. Wear comfortable, loose fitting clothing. Children are encouraged to wear pajamas. - Jewelry must be removed prior to entering the operating room. Rings and piercings that are not removed may be cut off. - The hospital will not accept responsibility for valuables. - Please leave all valuables, including medications, at home the day of surgery. If you are going home after surgery, a licensed transporter driver must drive you home. - NO public transportation without another adult if you receive anesthesia. - We recommend that an adult stay with you for 24 hours following discharge. - We also recommend that you do not drive, make important decision, drink alcoholic beverages, or take any drugs that were not prescribed by your health care provider for at least 24 hours after your discharge time. Follow any additional instructions given to you from your surgeon. If you or anyone in your household have experienced Covid symptoms in the past week, please notify your surgeon or the nurse liaison at the phone number below for possible testing. Telephone instructions given to _PATIENT and asked if any additional questions and then verbalized understanding. Patient advised to call surgeon office or pre surgery nurse liaison [phone] if any additional questions.
[2023-06-14 13:50] VITALS: BMI 39.4
--- NOTE | 2023-06-21 12:55 | WPDANESEPPF ---
Anes - Initial Pre Proc Eval Procedure: Operation Date: 06/22/23 13:00 Proposed Procedures p Revision Image Guided Bilateral Endoscopic Maxillary Antrostomy with Tissue Removal - Clifton Dodson MD Date/Time: 06/21/23 12:55 Surgeon: Clifton Dodson MD Pre Op Diagnosis: chronic sinusitis Patient Data Age: 67 Gender: F Height: 1.5 m Weight: 88.45 kg Allergies Allergy/AdvReac Type Severity Reaction Status Date / Time No Known Allergies Allergy Verified 06/14/23 13:27 Home Medications Medication Instructions Recorded Confirmed Type ergocalciferol (vitamin D2) 1,250 See Rx Instructions .Route 10/17/21 06/14/23 Rx mcg (50,000 unit) capsule (Vitamin .COMPLEX #12 caps D2) levothyroxine 88 mcg tablet 88 mcg PO DAILY 3 months #90 tabs 01/06/23 06/22/23 Rx budesonide 0.25 mg/2 mL suspension 0.25 mg (2 mL) irrigation BID #120 05/03/23 06/14/23 Rx for nebulization mL omeprazole 40 mg capsule,delayed 40 mg PO DAILY #90 caps 05/23/23 06/14/23 Rx release fluticasone propionate 50 2 spray intranasal DAILY 06/14/23 06/14/23 History mcg/actuation nasal spray,suspension losartan 25 mg tablet 25 mg PO DAILY 06/14/23 06/14/23 History metformin 500 mg tablet,extended 1,000 mg PO BID 06/14/23 06/14/23 History release 24 hr triamcinolone acetonide 0.1 % 1 applic topical BID LYMPHEDEMA 06/14/23 06/14/23 History topical ointment Patient hx anesthesia problems: none Family hx anesthesia problems: none Results Review: All pre-operative results and documents have been reviewed as part of the pre-operative evaluation. [facility] Past Medical History Medical History BCC (basal cell carcinoma of skin) Dermatofibroma Gastroesophageal reflux Generalized osteoarthritis of multiple sites Hypertension Hypothyroidism, acquired Lymphedema Mixed hyperlipidemia Postoperative hypothyroidism Psoriasis Type 2 diabetes mellitus with hyperglycemia, without long-term current use of insulin Vitamin B12 deficiency Vitamin D deficiency Surgical History Surgical History History of basal cell carcinoma excision History of bilateral breast biopsy History of hand surgery R hand reconstruction History of thyroidectomy Family History Family History Sibling Patient's sister is in good health Patient's brother is in good health Family history of lymphoma, Onset Age: 31 Patient's brother is Mother Family history of diabetes mellitus in first degree relative Family history of irritable bowel syndrome Family history of thyroid disease Family history of cataracts Family history of anemia Father Family history of diabetes mellitus in first degree relative Patient's father is Other Diabetes mellitus Family history of allergic disorder Family history of arthritis Family history of attention deficit hyperactivity disorder (ADHD) Family history of malignant neoplasm Social History Social History Social History: Caffeine-coffee Smoking status: Never smoker Second hand tobacco smoke exposure: No Alcohol intake: never Substance use: never Substance use type: does not use Lack of Transportation: No Lack of Food: Never True Current Housing: I Have Housing Concerned About Future Housing: No Difficulty Paying Gas/Electric Bills: No Difficulty Paying for Meds: No Currently Unemployed: No Education: Decline to Answer Difficulty w/ Childcare or Family Care: No Living arrangements: with family Occupation/Education: retired Gender identity (if verbalized by the patient): Female Spiritual care concerns: No Anes - Eval Final PreProcedure Day of Procedure 06/21/23 12:55 Patient weight: obese Heart: regular rate and
--- NOTE | 2023-06-21 16:59 | PM.IMHP ---
H&P: HPI History of Present Illness Date/Time: 06/21/23 16:59 Chief Complaint: chronic sinusitis Narrative: planned procedure Review of Systems Review of Systems: All systems reviewed & are unremarkable except as noted in HPI and below [facility] Past Medical History Medical History BCC (basal cell carcinoma of skin) Dermatofibroma Gastroesophageal reflux Generalized osteoarthritis of multiple sites Hypertension Hypothyroidism, acquired Lymphedema Mixed hyperlipidemia Postoperative hypothyroidism Psoriasis Type 2 diabetes mellitus with hyperglycemia, without long-term current use of insulin Vitamin B12 deficiency Vitamin D deficiency Surgical History Surgical History History of basal cell carcinoma excision History of bilateral breast biopsy History of hand surgery R hand reconstruction History of thyroidectomy Family History Family History Sibling Patient's sister is in good health Patient's brother is in good health Family history of lymphoma, Onset Age: 31 Patient's brother is Mother Family history of diabetes mellitus in first degree relative Family history of irritable bowel syndrome Family history of thyroid disease Family history of cataracts Family history of anemia Father Family history of diabetes mellitus in first degree relative Patient's father is Other Diabetes mellitus Family history of allergic disorder Family history of arthritis Family history of attention deficit hyperactivity disorder (ADHD) Family history of malignant neoplasm Social History Social History Social History: Caffeine-coffee Smoking status: Never smoker Second hand tobacco smoke exposure: No Alcohol intake: never Substance use: never Substance use type: does not use Lack of Transportation: No Lack of Food: Never True Current Housing: I Have Housing Concerned About Future Housing: No Difficulty Paying Gas/Electric Bills: No Difficulty Paying for Meds: No Currently Unemployed: No Education: Decline to Answer Difficulty w/ Childcare or Family Care: No Living arrangements: with family Occupation/Education: retired Gender identity (if verbalized by the patient): Female Spiritual care concerns: No Meds Home Medications and Allergies Home Medications Medication Instructions Recorded Confirmed Type ergocalciferol (vitamin D2) 1,250 See Rx Instructions .Route 10/17/21 06/14/23 Rx mcg (50,000 unit) capsule (Vitamin .COMPLEX #12 caps D2) levothyroxine 88 mcg tablet 88 mcg PO DAILY 3 months #90 tabs 01/06/23 06/14/23 Rx budesonide 0.25 mg/2 mL suspension 0.25 mg (2 mL) irrigation BID #120 05/03/23 06/14/23 Rx for nebulization mL omeprazole 40 mg capsule,delayed 40 mg PO DAILY #90 caps 05/23/23 06/14/23 Rx release fluticasone propionate 50 2 spray intranasal DAILY 06/14/23 06/14/23 History mcg/actuation nasal spray,suspension losartan 25 mg tablet 25 mg PO DAILY 06/14/23 06/14/23 History metformin 500 mg tablet,extended 1,000 mg PO BID 06/14/23 06/14/23 History release 24 hr triamcinolone acetonide 0.1 % 1 applic topical BID LYMPHEDEMA 06/14/23 06/14/23 History topical ointment Allergies Allergy/AdvReac Type Severity Reaction Status Date / Time No Known Allergies Allergy Verified 06/14/23 13:27 Exam Narrative: chronic appearing sinuses Assessment and Plan Assessment and plan (1) Nasal polyps: Code(s): J33.9 - Nasal polyp, unspecified Status: Acute Assessment and Plan: ?Plan OR revision bilateral image guided endoscopic maxillary antrostomies with tissue removal.? We can use previous CT scan.? This deep tissues leading to the thick drainage
[2023-06-22] VITALS (12 sets, daily range): BP systolic 126–145; BP diastolic 60–79; PULSE 82–93; RESP 11–22; TEMP 36.2–36.7; O2SAT 88–100
--- NOTE | 2023-06-22 07:17 | WPDHPUPDATE1 ---
History and Physical Update Update Date/Time: 06/22/23 07:17 History and Physical has been reviewed, including an updated exam of the patient. There are NO changes in the patient's condition. Risks, benefits, and alternatives have been discussed and questions answered. Patient agrees to proceed with procedure.
[2023-06-22 11:48] LABS: Glucose Point of Care 144 mg/dl (65-105)
[2023-06-22] MEDS: LACTATED RINGERS 1,000 ML 30 ML IV CONT ×2 (12:00→15:24)
[2023-06-22] MEDS: ACETAMINOPHEN 500 MG TABLET 1000 MG PO (12:30)
[2023-06-22] MEDS: SCOPOLAMINE 1 MG PATCH 1 PATCH TRANSDERM (12:56)
[2023-06-22] MEDS: OXYMETAZOLINE HCL 0.05% NAS 15 ML BTL (*BKC) 1 SPRAY NASAL (14:00)
[2023-06-22] MEDS: LIDO 1%/EPINEPHRINE 1:100,000 50 ML VIAL INFILTRATE (14:01)
[2023-06-22] MEDS: ceFAZolin 2 GM/D5W 50 ML 2 GM/50 ML BAG IVPB (14:03)
[2023-06-22 15:31] LABS: Glucose Point of Care 107 mg/dl (65-105)
--- NOTE | 2023-06-22 15:52 | W.PM.PROC2 ---
Procedure Note - Detailed Date of Procedure 06/22/23 Pre-op Diagnosis chronic sinusitis Post-op Diagnosis Same Procedure Performed bilateral image guided revision endoscopic maxillary antrostomies with tissue removed Surgeon Clifton Dodson MD Anesthesia General Indications see above Findings left side looked okay the max at scarred down somewhat opened up a little bit of polypoid edema right-sided diffuse polypoid edema all the tissue was sent for vasculitis studies and sarcoid studies Description of Procedure patient identified consent verified preop. Patient brought to the operating. Time-out performed. General anesthesia induced endotracheal tube secured. Patient prepped draped position procedure confirmed 2nd time-out performed. Image guidance initiated confirmed Afrin-soaked pledgets placed for [place] the removed. 0 degree scope and a utilized revision maxillary antrostomy from straight through cut backbiter down-biting stopper [place] straight microdebrider image guided instruments rad 60 rad 40 exact same procedure performed on the right side with much more polypoid edema. This was all sent for pathologic analysis. Patient bucked after the procedure several cc of bleeding total probably 20 cc. Bleeding stopped by the end when the endotracheal tube was removed. I performed all dictated portions procedure no complications care the patient given back to Anesthesiology. Estimated Blood Loss 15 Drains No Packing No Pathology Yes Complications No immediate complications Condition Stable Disposition PACU [facility] Billing Surgery - Charge Forward: Surgery Billing
[2023-06-22] MEDS: ONDANSETRON INJ 4 MG/2 ML VIAL IV PUSH (17:21)
== END 2023-06-22 18:36 | disposition home or self-care (01) ==
PROVIDERS: PCP Family Medicine; Visit Provider Otolaryngology
PROC: (CPT 31267; principal; 2023-06-22 13:00)
DX: J32.9 Chronic sinusitis, unspecified (principal); J33.8 Other polyp of sinus; I10 Essential (primary) hypertension; E78.2 Mixed hyperlipidemia; E11.9 Type 2 diabetes mellitus without complications; L40.9 Psoriasis, unspecified; K21.9 Gastro-esophageal reflux disease without esophagitis; E89.0 Postprocedural hypothyroidism; E55.9 Vitamin D deficiency, unspecified; E53.8 Deficiency of other specified B group vitamins; Z79.84 Long term (current) use of oral hypoglycemic drugs; Z79.51 Long term (current) use of inhaled steroids; E66.9 Obesity, unspecified; Z68.41 Body mass index [BMI] 40.0-44.9, adult
CPT/HCPCS: 31267; 61782; 36415; 80048; 82948; 88305; 88311; 88312; A9270; J0330; J0690; J1100; J1170; J2250; J2371; J2405; J2704; J3010; J7050; J7120

== ENCOUNTER 2023-06-30 14:31 | Outpatient (CLI) | payer MEDICARE, SELFPAY ==
--- NOTE | ~2023-06-30 | DEXA_ITS ---
Bone Density Report Name: PINKY ZAPATA Age: 67 Sex: Female Ethnicity: White Date of : 1955 Indication: postmenopausal; screening for osteoporosis; height loss; history of glucocorticoids; cancer; hysterectomy; Referring Provider: OFELIA PAULINO Study: Bone densitometry was performed. Exam Date: June 30, 2023 Accession number: [id number] Bone Density: Region BMD T-score Z-score Classification AP Spine(L1-L4) 0.979 -0.6 1.4 Normal Femoral Neck (Left) 0.810 -0.3 1.4 Normal Total Hip (Left) 0.984 0.3 1.8 Normal Femoral Neck (Right) 0.786 -0.6 1.1 Normal Total Hip (Right) 0.990 0.4 1.8 Normal Total Hip Mean 0.987 0.4 1.8 Normal World Health Organization criteria for BMD impression classify patients as: Normal (T-score at or above -1.0), Osteopenia (T-score between -1.0 and -2.5), or Osteoporosis (T-score at or below -2.5). 10-year Fracture Risk: FRAX not reported because: All T-scores for Spine Total, Hip Total, Femoral Neck at or above -1.0 Previous Exams: Region Exam Age BMD T-score BMD Change BMD Change Date g/cm2 vs Baseline vs Previous AP Spine (L1-L4) 06/30/2023 67 0.979 -0.6 -0.030 (-3.0%) -0.027 (-2.7%) 03/28/2021 65 1.007 -0.4 -0.003 (-0.3%) -0.003 (-0.3%) 09/05/2018 62 1.010 -0.3 Total Hip(Left) 06/30/2023 67 0.984 0.3 -0.050 (-4.8%) -0.026 (-2.6%) 03/28/2021 65 1.011 0.6 -0.024 (-2.3%) -0.024 (-2.3%) 09/05/2018 62 1.035 0.8 Total Hip(Right) 06/30/2023 67 0.990 0.4 -0.065 (-6.1%) -0.026 (-2.6%) 03/28/2021 65 1.017 0.6 -0.038 (-3.6%) -0.038 (-3.6%) 09/05/2018 62 1.055 0.9 *Denotes significance at 95% confidence level, LSC for AP Spine = 0.022 g/cm2, LSC for Total Hip = 0.027 g/cm2 Clinical Information Provided by Patient: Has taken Glucocorticoids Has used the following medications: Vitamin D Has the following medical conditions: Cancer, Hysterectomy, HYPOPARATHYROID Patient maximum height was 60 Drinks caffeinated beverages Onset of menses at age 11 Number of children 2 Impression: The patient has normal bone mass. The patient has risk factors, including: history of glucocorticoid therapy. The BMD for the AP Spine (L1-L4) decreased, changing by -2.7% since the last DXA exam. Discussion: BONE DENSITY IS ABOVE THE MINIMUM DESIRABLE LEVEL AT ALL SKELETAL SITES TESTED. This patient?s bone mineral density is above the minimum desirable level (T-scor
--- NOTE | ~2023-06-30 | MM_ITS ---
EXAMINATION: MM screening seema BI w [facility] HISTORY: Screening mammogram TECHNIQUE: Craniocaudal and mediolateral oblique 3-D tomosynthesis images were obtained and synthetic 2-D images were generated. CAD analysis was submitted and interpreted. COMPARISON: 03/28/2021, 09/05/2018 bilateral screening mammogram examinations BREAST PARENCHYMAL COMPOSITION: There are scattered areas of fibroglandular density. FINDINGS: Scattered bilateral benign calcifications. There is no evidence of suspicious mass, calcifi cation, or architectural distortion to suggest malignancy in either breast. There has been no suspici ous interval change. IMPRESSION: 1. No mammographic evidence of malignancy. 2. Recommend routine screening mammography in one year. BI-RADS Category 2: Benign finding(s). Reviewed, dictated and finalized at location A.
== END 2023-06-30 14:32 | disposition home or self-care (01) ==
LOC: ANHIMG 14:34
PROVIDERS: PCP Family Medicine; Visit Provider Family Medicine
DX: Z12.31 Encounter for screening mammogram for malignant neoplasm of breast (principal); Z78.0 Asymptomatic menopausal state
CPT/HCPCS: 77063; 77067; 77080

== ENCOUNTER 2023-07-16 10:13 | Outpatient (CLI) | payer MEDICARE, SELFPAY ==
--- NOTE | 2023-07-18 14:18 | WPDPFTINT ---
PFT Procedure Performed PFT Procedure Performed Spirometry with Pre/Post Bronchodilator Plethysmography (Lung Vol) Diffusing Cap (DLCO) Flow Vol Loop PFT Interpretation DOS: 07/16/2023 REQUESTING: Deya Dacosta MD REASON FOR TESTING: Cough PULMONARY FUNCTION TESTS Repeatability of spirometry FEV1 maneuver pre-bronchodilator is Grade B. Repeatability of spirometry FEV1 maneuver post-bronchodilator is Grade A. Spirometry: The pre-bronchodilator FEV1 is 1.76 L, 92%. The pre-bronchodilator FVC is 2.17 L, 90%. The FEV1/FVC ratio is 81%. After bronchodilator, the FEV1 is 1.75 L, 92% no change. The FVC is 2.13 L, 88%, decreased 2%. The FEV1/FVC ratio is 82%. Lung volumes: The total lung capacity is 4.03 L, 93%. The residual volume is 1.77 L, 93%. The RV/TLC is 44%. Diffusion: DLCO is 15.2, 81%. The DLCO/VA is 4.98, 109%. Flow volume loop: The flow volume loop is unremarkable. IMPRESSION: This study shows normal spirometry without change after bronchodilator, normal lung volumes and normal diffusion. No prior studies for comparison. Neck response to bronchodilator should not preclude use of clinically indicated. Deya Dacosta MD
== END 2023-07-16 10:14 | disposition home or self-care (01) ==
PROVIDERS: PCP Family Medicine; Visit Provider Internal Medicine Critical Care Medicine
DX: R05.3 Chronic cough (principal)
CPT/HCPCS: 94060; 94726; 94729

== ENCOUNTER 2023-07-21 16:32 | Emergency (ER) | payer MEDICARE, SELFPAY ==
--- NOTE | ~2023-07-21 | CT_ITS ---
EXAMINATION: CT abdomen pelvis w con DATE: 07/21/2023 21:09 INDICATION: Upper abdominal pain TECHNIQUE: Computed tomography (CT) of the abdomen and pelvis was performed with 100 mL Omnipaque-350 intravenous contrast. Automated exposure control and iterative reconstruction technique were employe d. The dose-length product was 1339.03 mGy-cm. COMPARISON: None FINDINGS: There is right lower lobar paravertebral pleural parenchymal scarring with honeycombing along the rig ht side of the lower thoracic spine. Heart size is normal. Atherosclerotic coronary artery calcific l ocation. No pericardial or pleural effusion. Liver, gallbladder, spleen, pancreas, bilateral adrenal glands and kidneys are normal. No abnormal bowel wall thickening or obstruction. Normal appendix. Scar dder is normal. The uterus is not identified and has likely been surgically resected. Bilateral adnex a are unremarkable. No free intraperitoneal gas or fluid. No pathologically enlarged abdominal or pel nate lymphadenopathy. Severe thoracic and upper lumbar spondylosis. IMPRESSION: 1. No acute intra-abdominal/pelvic process. Reviewed, dictated and finalized at location A.
[2023-07-21 16:35] VITALS: BP 160/93; PULSE 97; RESP 20; TEMP 36.4; O2SAT 98
[2023-07-21 16:50] LABS: Basophils Percent Auto 0.6 % (0.2-1.2); Eosinophils Absolute Auto 0.4 K/mm3 (0-0.3); Eosinophils Percent Auto 6.1 % (0-4.4); Hematocrit 37.3 % (37.0-47.0); Hemoglobin 11.9 g/dL (12.0-15.0); Immature Granulocyte Absolute 0.02 K/mm3 (0.00-0.031); Immature Granulocyte Percent A 0.3 % (0-0.5); Lymphocytes Absolute Auto 2.24 K/mm3 (0.9-3.2); Lymphocytes Percent Auto 31.8 % (18.3-44.2); Mean Corpuscular HGB Conc 31.9 g/dl (32-36); Mean Corpuscular Hemoglobin 24.7 pg (26-34); Mean Corpuscular Volume 77.5 fl (80-100); Mean Platelet Volume 10.3 fl (7.4-10.4); Monocytes Absolute Auto 0.4 K/mm3 (0.1-0.6); Neutrophils Absolute Auto 3.9 K/mm3 (1.3-6.7); Neutrophils Percent Auto 55.2 % (45.5-73.1); Platelet Count Result 273 k/mm3 (150-375); Red Blood Count 4.81 M/mm3 (4.2-5.4); Red Cell Distribution Width 15.1 % (11.5-14.5); White Blood Count 7.1 K/mm3 (4.5-10.0)
[2023-07-21 17:00] LABS: Appearance Urine Cloudy (Clear); Bacteria Urine None Seen /hpf; Bilirubin Urine Negative (Negative); Blood Urine Negative (Negative); Color Urine Yellow (Yellow); Glucose Urine UA 3+ mg/dL (Negative); Ketones Urine Negative (Negative); Leukocyte Esterase Ur 2+ LEU/UL (Negative); Nitrate Urine Negative (Negative); Non Pathogenic Casts 0-2; Protein Urine 1+ mg/dL (Negative); RBC Urine 0-2 /hpf (0-2); Specific Grav Ur 1.017 (1.001-1.035); Squamous Epithelial Cell Urine None Seen /hpf (Few); Urobilinogen Urine 0.2 mg/dL (<2.0); pH Urine 5.5 (5.0-9.0)
[2023-07-21 17:02] LABS: Alanine Aminotransferase 19 U/L (6-35); Albumin Level 4.3 g/dL (3.5-5.1); Alkaline Phosphatase 89 U/L (38-126); Anion Gap 5 mmol/L (4-12); Aspartate Amino Transferase 30 U/L (14-36); Bilirubin,Total 0.4 mg/dL (0.2-1.3); Blood Urea Nitrogen 8 mg/dL (7-17); Calcium 9.2 mg/dL (8.4-10.2); Carbon Dioxide 27 mmol/L (22-30); Chloride 102 mmol/L (98-107); Estimated CRCL calculation 78 ml/min; Estimated Glomerular Filt Rate > 60; Glucose 234 mg/dL (65-110); Lipase 230 U/L (23-300); Potassium 3.4 mmol/L (3.4-5.0); Sodium 134 mmol/L (137-145)
[2023-07-21 17:04] LABS: Add Urine Microscopic? YES
[2023-07-21 18:08] VITALS: BP 168/82; PULSE 85; RESP 18; O2SAT 98
--- NOTE | 2023-07-21 20:29 | ED.ABDPAIN ---
HPI - Abdominal Pain General Chief Complaint: Abdominal Pain Stated Complaint: abd pain Time Seen by Provider: 07/21/23 19:10 History of Present Illness HPI narrative: Patient is a 67-year-old female who presents to the emergency department this evening complaining of midepigastric abdominal pain that she has been having for the past few years. Patient admits that the pain is intermittent, and feels like a sharp pain which only loss few seconds. Patient has brought this up with her family doctor, however, she did not get any answers. Patient admits to a history of acid reflux and does take 40 mg of omeprazole daily. She denies any chest pain or shortness of breath cough denies any exertional dyspnea, and denies any cardiovascular disease. Patient also denies any nausea or vomiting, denies any constipation, diarrhea, melena, hematochezia, fevers or chills. There are no other modifying, alleviating, or precipitating factors at this time. Related Data Home Medications Medication Instructions Recorded Confirmed fluticasone propionate 50 2 spray intranasal DAILY 06/14/23 07/07/23 mcg/actuation nasal spray,suspension losartan 25 mg tablet 25 mg PO DAILY 06/14/23 07/07/23 metformin 500 mg tablet,extended 1,000 mg PO BID 06/14/23 07/07/23 release 24 hr triamcinolone acetonide 0.1 % 1 applic topical BID LYMPHEDEMA 06/14/23 07/07/23 topical ointment Allergies Allergy/AdvReac Type Severity Reaction Status Date / Time No Known Allergies Allergy Verified 07/07/23 15:18 Review of Systems Review of Systems: All systems are reviewed and are negative unless stated otherwise in the HPI. [facility] Past Medical History Medical History BCC (basal cell carcinoma of skin) Dermatofibroma Gastroesophageal reflux Generalized osteoarthritis of multiple sites Hypertension Hypothyroidism, acquired Lymphedema Mixed hyperlipidemia Postoperative hypothyroidism Psoriasis Type 2 diabetes mellitus with hyperglycemia, without long-term current use of insulin Vitamin B12 deficiency Vitamin D deficiency Surgical History Surgical History History of basal cell carcinoma excision History of bilateral breast biopsy History of hand surgery R hand reconstruction History of thyroidectomy Family History Family History Sibling Patient's sister is in good health Patient's brother is in good health Family history of lymphoma, Onset Age: 31 Patient's brother is Mother Family history of diabetes mellitus in first degree relative Family history of irritable bowel syndrome Family history of thyroid disease Family history of cataracts Family history of anemia Father Family history of diabetes mellitus in first degree relative Patient's father is Other Diabetes mellitus Family history of allergic disorder Family history of arthritis Family history of attention deficit hyperactivity disorder (ADHD) Family history of malignant neoplasm Social History Social History Social History: Caffeine-coffee Smoking status: Never smoker Second hand tobacco smoke exposure: No Alcohol intake: never Substance use: never Substance use type: does not use Lack of Transportation: No Lack of Food: Never True Current Housing: I Have Housing Concerned About Future Housing: No Difficulty Paying Gas/Electric Bills: No Difficulty Paying for Meds: No Currently Unemployed: No Education: Decline to Answer Difficulty w/ Childcare or Family Care: No Living arrangements: with family Occupation/Education: retired Gender identity (if verbalized by the patient): Female Spiritual care concerns: No Exam Narrative: General: Alert, awake, afebrile,
--- NOTE | 2023-07-21 20:32 | ECG_ITS ---
Measurements Intervals [place] Rate: 81 P: 48 IN: 185 QRS: -20 QRSD: 88 T: 44 QT: 385 QTc: 449 Interpretive Statements SINUS RHYTHM INFERIOR MYOCARDIAL INFARCTION , PROBABLY OLD [40+ ms Q WAVE AND/OR ST/T ABNORMALITY IN II/aVF] COMPARED TO ECG 04/23/2023 10:33:54 NO SIGNIFICANT CHANGES Electronically Signed On 07-22-2023 11:01:34 CDT by Bre Saavedra M.D.
[2023-07-21] MEDS: SUCRALFATE 1 GM TABLET PO (22:45)
== END 2023-07-21 22:00 | disposition home or self-care (01) ==
PROVIDERS: Student in an Organized Health Care Education/Training Program; Emergency Provider Emergency Medicine; PCP Family Medicine
DX: R10.13 Epigastric pain (principal); G89.29 Other chronic pain; E78.2 Mixed hyperlipidemia; E89.0 Postprocedural hypothyroidism; E11.9 Type 2 diabetes mellitus without complications; E53.8 Deficiency of other specified B group vitamins; E55.9 Vitamin D deficiency, unspecified; L40.9 Psoriasis, unspecified; K21.9 Gastro-esophageal reflux disease without esophagitis; M19.90 Unspecified osteoarthritis, unspecified site; Z85.828 Personal history of other malignant neoplasm of skin; Z79.84 Long term (current) use of oral hypoglycemic drugs
CPT/HCPCS: 36415; 74177; 80053; 81001; 83605; 83690; 85025; 87086; 93005; 99284; A9270; Q9967

== ENCOUNTER 2023-09-06 08:18 | Outpatient (CLI) | payer MEDICARE, SELFPAY ==
--- NOTE | ~2023-09-06 | CT_ITS ---
EXAMINATION: CT pelvis w con DATE: 09/06/2023 09:29 INDICATION: Rheumatoid arthritis, unspecified. TECHNIQUE: Computed tomography (CT) of the pelvis was performed with 100 mL Omnipaque 350 intravenous contrast. Automated exposure control and iterative reconstruction technique were employed. The dose- length product was 991.06 mGy-cm. COMPARISON: CT abdomen and pelvis 07/21/2023 FINDINGS: There are no dilated loops of bowel. There are no pathologically enlarged lymph nodes. Ther e is no free intraperitoneal fluid. Bone alignment is normal. No fracture. There is moderate osteoart hritis of the hips and sacroiliac joints. There is mild lumbar spondylosis. IMPRESSION: 1. Polyarticular osteoarthritis. No evidence of inflammatory arthropathy. Reviewed, dictated and finalized at location A.
[2023-09-06 09:16] LABS: Estimated Glomerular Filt Rate > 60
== END 2023-09-06 08:19 | disposition home or self-care (01) ==
LOC: ANHIMG 08:19
PROVIDERS: PCP Family Medicine; Visit Provider Internal Medicine
DX: M16.0 Bilateral primary osteoarthritis of hip (principal); M46.1 Sacroiliitis, not elsewhere classified
CPT/HCPCS: 72193; Q9967

== ENCOUNTER 2023-09-24 14:19 | Outpatient (CLI) | payer MEDICARE, SELFPAY ==
[2023-09-24 15:15] LABS: Basophils Percent Auto 0.4 % (0.2-1.2); Eosinophils Absolute Auto 0.3 K/mm3 (0-0.3); Eosinophils Percent Auto 4.1 % (0-4.4); Hematocrit 39.3 % (37.0-47.0); Hemoglobin 12.4 g/dL (12.0-15.0); Immature Granulocyte Absolute 0.02 K/mm3 (0.00-0.031); Immature Granulocyte Percent A 0.3 % (0-0.5); Lymphocytes Absolute Auto 1.95 K/mm3 (0.9-3.2); Lymphocytes Percent Auto 28.8 % (18.3-44.2); Mean Corpuscular HGB Conc 31.6 g/dl (32-36); Mean Corpuscular Hemoglobin 25.3 pg (26-34); Mean Corpuscular Volume 80.2 fl (80-100); Mean Platelet Volume 11.1 fl (7.4-10.4); Monocytes Absolute Auto 0.4 K/mm3 (0.1-0.6); Monocytes Percent Auto 6.5 % (2.6-8.5); Neutrophils Absolute Auto 4.1 K/mm3 (1.3-6.7); Neutrophils Percent Auto 59.9 % (45.5-73.1); Platelet Count Result 318 k/mm3 (150-375); Red Cell Distribution Width 15.4 % (11.5-14.5); White Blood Count 6.8 K/mm3 (4.5-10.0)
[2023-09-24 16:14] LABS: Iron 79 ug/dL (37-170)
[2023-09-24 16:20] LABS: Cholesterol 170 mg/dL (0-200); HDL Direct 52 mg/dL; Triglycerides 149 mg/dL (<150)
[2023-09-24 16:25] LABS: Percent Iron Saturation 17 % (20-50)
[2023-09-24 16:33] LABS: Free T4 Free Thyroxine 0.87 ng/mL (0.78-2.19); LDL Cholesterol Direct 104 mg/dL
[2023-09-24 16:51] LABS: Ferritin 5.98 ng/mL (11.1-264)
[2023-09-24 18:26] LABS: Creatinine Urine 54.5 mg/dL
[2023-09-24 18:29] LABS: MALB Creatinine Ratio 125.7 mg/g (0-30); Microalbumin Urine Random 68.5 mg/L (0-16.7)
== END 2023-09-24 14:20 | disposition home or self-care (01) ==
PROVIDERS: PCP Family Medicine; Referring Provider Otolaryngology; Visit Provider Internal Medicine Endocrinology, Diabetes & Metabolism
DX: E55.9 Vitamin D deficiency, unspecified (principal); E11.9 Type 2 diabetes mellitus without complications; E78.2 Mixed hyperlipidemia; E89.0 Postprocedural hypothyroidism; R71.8 Other abnormality of red blood cells
CPT/HCPCS: 36415; 80061; 82043; 82728; 83540; 83550; 84439; 84443; 85025

== ENCOUNTER 2023-09-28 02:57 | Day surgery (SDC) | payer MEDICARE, SELFPAY ==
[2023-09-27 11:26] VITALS: BMI 42.0
[2023-09-28 12:13] VITALS: BP 125/61; PULSE 72; RESP 18; TEMP 36.2; O2SAT 98; BMI 41.2
[2023-09-28 12:23] LABS: Glucose Point of Care 121 mg/dl (65-105)
[2023-09-28] MEDS: LACTATED RINGERS 1,000 ML 150 ML IV CONT (12:30)
--- NOTE | 2023-09-28 12:40 | WPDANESEPPF ---
Anes - Initial Pre Proc Eval Procedure: Operation Date: 09/28/23 13:30 Proposed Procedures p Esophagogastroduodenoscopy - Raza Palm MD Date/Time: 09/28/23 12:40 Surgeon: Raza Palm MD Pre Op Diagnosis: Epigastric pain, Abd. pain, GERD Patient Data Age: 67 Gender: F Height: 1.5 m Weight: 92.6 kg Last Vital Signs Temp 97.2 F L 09/28/23 12:13 Pulse 72 09/28/23 12:13 Resp 18 09/28/23 12:13 BP 125/61 09/28/23 12:13 Pulse Ox 98 09/28/23 12:13 O2 Del Method Room Air 09/28/23 12:13 Allergies Allergy/AdvReac Type Severity Reaction Status Date / Time No Known Allergies Allergy Verified 09/28/23 12:08 Home Medications Medication Instructions Recorded Confirmed Type ergocalciferol (vitamin D2) 1,250 See Rx Instructions .Route 10/17/21 09/28/23 Rx mcg (50,000 unit) capsule (Vitamin .COMPLEX #12 caps D2) levothyroxine 88 mcg tablet 88 mcg PO DAILY 3 months #90 tabs 01/06/23 09/28/23 Rx metformin 500 mg tablet,extended 1,000 mg PO BID 06/14/23 09/28/23 History release 24 hr budesonide 0.25 mg/2 mL suspension 0.25 mg (2 mL) irrigation BID #120 07/29/23 09/28/23 Rx for nebulization mL sucralfate 1 gram tablet 1 g PO DAILY #90 tabs 08/03/23 09/28/23 Rx atenolol 25 mg tablet 25 mg PO DAILY 09/16/23 09/28/23 History atorvastatin 10 mg tablet 10 mg PO HS 09/16/23 09/28/23 History cetirizine 10 mg tablet (Zyrtec) 10 mg PO DAILY 09/16/23 09/28/23 History chlorpheniramine maleate 4 mg 4 mg PO Q6H PRN Congestion 09/16/23 09/28/23 History tablet losartan 25 mg tablet 25 mg PO DAILY 09/16/23 09/28/23 History albuterol sulfate 90 mcg/actuation 1 puff inhalation Q4H PRN 09/27/23 09/28/23 History aerosol inhaler Shortness Of Breath Or Wheezing guaifenesin 600 mg tablet, 600 mg PO Q12H PRN Congestion 09/27/23 09/28/23 History extended release 12 hr (Mucinex) omeprazole 40 mg capsule,delayed 40 mg PO DAILY 09/27/23 09/28/23 History release triamcinolone acetonide 0.1 % See Rx Instructions .Route 09/27/23 09/28/23 History topical ointment .COMPLEX PRN Rash Laboratory Tests 09/28/23 12:19 POC Capillary Glucose 121 H mg/dl (65-105) Patient hx anesthesia problems: none Family hx anesthesia problems: none Results Review: All pre-operative results and documents have been reviewed as part of the pre-operative evaluation. [facility] Past Medical History Medical History Allergic rhinitis BCC (basal cell carcinoma of skin) BMI greater than 30 Colon cancer screening Dermatofibroma Dietary counseling and surveillance Epigastric pain Fatigue Gastroesophageal reflux Generalized osteoarthritis of multiple sites Hypertension Lymphedema Mixed hyperlipidemia Muscle cramps Nasal congestion Nasal crusting Nasal polyps Nondisplaced fracture of distal phalanx of right thumb PND (post-nasal drip) Pneumococcal vaccine administered Post-menopausal Post-operative pain Post-operative pain Psoriasis Right hand pain Screening mammogram, encounter for Skin cancer screening Subcutaneous mass Vitamin B12 deficiency Vitamin D deficiency Wellness examination Surgical History Surgical History History of basal cell carcinoma excision History of bilateral breast biopsy History of hand surgery R hand reconstruction History of thyroidectomy Family History Family History Sibling Patient's sister is in good health Patient's brother is in good health Family history of lymphoma, Onset Age: 31 Patient's brother is Mother Family history of diabetes mellitus in first degree relative Family history of irritable bowel syndrome Family history of thyroid disease Family history of cataracts Family history of anemia Father Family history of
--- NOTE | 2023-09-28 13:14 | WPDHPUPDATE1 ---
History and Physical Update Update Date/Time: 09/28/23 13:14 History and Physical has been reviewed, including an updated exam of the patient. There are NO changes in the patient's condition. Risks, benefits, and alternatives have been discussed and questions answered. Patient agrees to proceed with procedure.
[2023-09-28 13:29] VITALS: BP 93/48; PULSE 65; RESP 15; O2SAT 100
[2023-09-28 13:39] VITALS: BP 110/59; PULSE 66; RESP 23; O2SAT 100
[2023-09-28 13:49] VITALS: BP 123/67; PULSE 65; RESP 15; O2SAT 100
== END 2023-09-28 14:02 | disposition home or self-care (01) ==
PROVIDERS: PCP Family Medicine; Referring Provider Nurse Practitioner Family; Visit Provider Internal Medicine Gastroenterology
PROC: 0DJ08ZZ Inspection of Upper Intestinal Tract, Via Natural or Artificial Opening Endoscopic (ICD-10-PCS; CPT 43235; principal; 2023-09-28 13:30)
DX: K29.50 Unspecified chronic gastritis without bleeding (principal); K29.80 Duodenitis without bleeding; I10 Essential (primary) hypertension; E78.2 Mixed hyperlipidemia; K21.9 Gastro-esophageal reflux disease without esophagitis; E55.9 Vitamin D deficiency, unspecified; E53.8 Deficiency of other specified B group vitamins; Z79.51 Long term (current) use of inhaled steroids; Z79.84 Long term (current) use of oral hypoglycemic drugs; E66.01 Morbid (severe) obesity due to excess calories; Z68.41 Body mass index [BMI] 40.0-44.9, adult
CPT/HCPCS: 43239; 82948; 88305; J2704; J7120

== ENCOUNTER 2023-10-06 12:29 | Outpatient (RCR) | payer MEDICARE, SELFPAY ==
--- NOTE | 2023-10-06 14:44 | STOPEVAL1 ---
Assessment and note entered by Deya Romeo BOX CUTTER Evaluation Information Assessment Status Evaluation Reported Pain Level Pain Score 0: Self Report Assessment ST Clinical Summary Voice Evaluation Patient was seen for a Voice Evaluation at the request of Dr. Dodson. Patient reports a history of allergies with sinus issues beginning September 08, with eventual sinus prodedures to reduce swelling and remove mucous/infection in the sinus cavities. She reports a hoarse voice throughout this period, worse in the morning upon awaking, improving as the day progresses, and then worsening in the evenings with fatigue. She rates this from mild-moderate to moderate raspy vocal quality, improving to mild/mild-moderate, and then back to moderate by evenings. Patient reported that she noticed if she speaks in a slightly higher pitch, her vocal quality improves. Today the patient's voice was evaluated and she was found to have a mild dysphonia at this time characterized as mild raspy vocal quality with no hoarseness or breathiness. She exhibited shorter- than-expected ability to sustain the ah sound (4, and then 8 seconds), but able to sustain s/z sounds to 14-18 seconds. Patient's vocal loudness was judged to be within normal range. Pitch range was within normal limits. Results suggest patient's raspy vocal quality may be attributed to sinus drainage and possibly gastroesophageal reflux disease (GERD). She was instructed in the use of a vocal hygiene program and a list of suggestions for reducing GERD symptoms. She voiced good understanding and stated that she has already introduced these suggestions into her activities of daily living. She was also instructed to raise pitch when speaking in order to reduce the raspy vocal quality when she notices that vocal quality has become impaired. Therapist offered continuing Speech Therapy to address changing pitch and several other treatment protocols however patient declined at this time as she wants to wait until she sees her new candle wrapper in case new or different medicine decreases her sinus symptoms and contributes to improved voicing. She wi
== END 2023-10-06 14:58 | disposition home or self-care (01) ==
LOC: ANHST 12:29
PROVIDERS: PCP Family Medicine; Visit Provider Otolaryngology
DX: R49.0 Dysphonia (principal); J38.7 Other diseases of larynx
CPT/HCPCS: 92524

== ENCOUNTER 2023-12-17 13:52 | Outpatient (CLI) | payer MEDICARE, SELFPAY ==
[2023-12-17 15:41] LABS: Free T4 Free Thyroxine 1.28 ng/mL (0.78-2.19)
== END 2023-12-17 13:53 | disposition home or self-care (01) ==
LOC: ANHLAB 13:59
PROVIDERS: PCP Family Medicine; Visit Provider Internal Medicine Endocrinology, Diabetes & Metabolism
DX: E03.9 Hypothyroidism, unspecified (principal); Z79.899 Other long term (current) drug therapy
CPT/HCPCS: 36415; 84439; 84443

== ENCOUNTER 2023-12-22 13:00 | Outpatient (CLI) | payer MEDICARE, SELFPAY ==
[2023-12-24 09:03] LABS: Chromatin Antibody <1.0 NEG AI (<1.0 NEG); Scleroderma 70 Antibody <1.0 NEG AI (<1.0 NEG)
[2023-12-24 16:37] LABS: Myeloperoxidase Antibody 14.5 AI; Proteinase 3 PR3 Antibodies <1.0 AI
[2023-12-28 11:38] LABS: ANCA Screen NEGATIVE (NEGATIVE)
[2023-12-29 12:58] LABS: Histone Antibody <1.0 U
[2023-12-31 08:10] LABS: Reference Lab Test Name RF IGG IGA IGM
== END 2023-12-22 13:01 | disposition home or self-care (01) ==
LOC: ANHLAB 13:08
PROVIDERS: PCP Family Medicine; Visit Provider Family Medicine
DX: L40.50 Arthropathic psoriasis, unspecified (principal)
CPT/HCPCS: 36415; 86036; 86225; 86235; 86364

== ENCOUNTER 2023-12-27 12:36 | Outpatient (CLI) | payer MEDICARE, SELFPAY ==
[2023-12-27 13:48] LABS: Iron 56 ug/dL (37-170)
[2023-12-27 13:58] LABS: Percent Iron Saturation 12 % (20-50)
[2023-12-27 14:24] LABS: Ferritin 6.45 ng/mL (11.1-264)
== END 2023-12-27 12:37 | disposition home or self-care (01) ==
PROVIDERS: PCP Family Medicine; Visit Provider Family Medicine
DX: E61.1 Iron deficiency (principal)
CPT/HCPCS: 36415; 82728; 83540; 83550

== ENCOUNTER 2024-01-14 10:00 | Outpatient (RCR) | payer MEDICARE, SELFPAY ==
--- NOTE | 2023-11-24 10:00 | OPREHPOC ---
Outpatient Therapy Plan of Care This is a Multidisciplinary Plan of Care that may contain components documented by all disciplines (PT, OT, and ST.) PT Problem 1 PT Problem #1 Knowledge Deficit PT Goal 1 Goal *indep with HEP for LE's * lymphedema education for self management-- compression garments, self massage, skin care Target Visit 10 PT Problem 2 PT Problem #2 Impaired Lymphatic System PT Goal 1 Goal improve lymphatic system evident by: circumferential measurement of LE's to 64 cm: 1* R 630 cm 2* L 630 cm no red tissue over lower leg 3* R 4* L no fibrotic tissue over lower leg 5* R 6* L Target Visit 10
--- NOTE | 2023-11-24 10:00 | PTOPEVAL1 ---
Assessment and note entered by Ana Rosa Trinh, PT Evaluation Information Assessment Status Evaluation Other ICD-10 Condition Codes ( lymphedema in LE's I89.0 PT) Onset August 2022 Subjective Information gradual increase in leg size; also have swelling in her stomach; Activity: assist with home tasks-does heavier tasks and ones involve leaning over due to abdominal pain; she is able to do light home tasks and indep with self care; does not use assistive device; Reported Pain Level Pain Score Self Report 5/10 Additional Pain Score Comments overall body pain---abdominal pain up to 9/10; bilateral knee and hip pain; back pain; Assessment PT Clinical Summary Radha has the diagnosis of lymphedema of both legs. She had recent treatment at another facility and has a home intermittent compression pump, but not any compression garments. History includes bilateral knee, hip and low back pain. She is currently under dr care for torn abdominal muscle with swelling over her L stomach and may have to have surgery on it. With the evaluation, she has tissue changes with redness and fibrotic tissue over lower legs, with lipedema over thighs and hips, with abdominal firmness and pain. Skilled PT services are indicated for manual lymph drainage, use of velcro reduction for compression LE exercises and education for compression garments and care for lymphedema. Plan of Care Interventions Lymphedema Compression Wrap,Manual Lymph Drainage, Patient/Caregiver Education,Therapeutic Activities, Therapeutic Exercise PT Services Indicated Yes Treatment Frequency and 2x/wk for 10 visits Duration These treatments will address the objective and functional deficits as defined above. The patient will be advanced safely and appropriately in order for the patient to progress towards his/her prior level of function. Additional exercises will be introduced and as well as a comprehensive home exercise program upon discharge, if needed, ?to ensure carryover of functional gains achieved in the clinic. This treatment plan has been reviewed and agreement upon by the patient.
--- NOTE | 2023-12-17 15:22 | PCPTNOTE ---
faxed request to Dr Arrieta for order for compression garments, so insurance will cover them.
--- NOTE | 2024-01-04 11:03 | PCPTNOTE ---
today's appt canceled due to insurance issues.
--- NOTE | 2024-01-14 10:51 | PTOPDC ---
Assessment and note entered by Ana Rosa Trinh, PT, CLT Discharge Report Assessment Status Discharge Other ICD-10 Condition Codes ( lymphedema in LE's I89.0 PT) Onset August 2022 Subjective Information have not been using the home pump-- been on vacation; have not needed the velcro garments, legs were not as swollen; Reported Pain Level Pain Score 0: Self Report; tenderness anterior jones bilateral Assessment PT Clinical Summary Radha has received 7 PT sessions. Education completed for lymphedema management: performing self manual lymph drainage, use of home intermittent compression pump, velcro garments for lower leg and foot, capris for trunk and thighs; skin care, monitor leg size and skin. The skin integrity of lower legs has improved with less redness and less fibrotic tissue. Circumferential measurement of LE to 64 cm: R has decreased by 8.7 cm and L 10.8 cm. The goals were partially achieved. Discharge PT services. Plan of Care PT Services Indicated No
== END 2024-01-21 13:47 | disposition home or self-care (01) ==
LOC: ANHPT 10:00
PROVIDERS: PCP Family Medicine; Visit Provider Family Medicine
DX: I89.0 Lymphedema, not elsewhere classified (principal)
CPT/HCPCS: 97016; 97140; 97161; 97530

== ENCOUNTER 2024-02-25 01:24 | Day surgery (SDC) | payer MEDICARE, SELFPAY ==
[2024-02-17 09:27] VITALS: BMI 41.8
[2024-02-25] VITALS (8 sets, daily range): BP systolic 139–174; BP diastolic 72–93; PULSE 81–103; RESP 18–27; TEMP 36.1; O2SAT 96–100; BMI 40.9
[2024-02-25] MEDS: LACTATED RINGERS 1,000 ML 150 ML IV CONT (10:17)
[2024-02-25 10:19] LABS: Glucose Point of Care 151 mg/dl (65-105)
--- NOTE | 2024-02-25 10:35 | WPDANESEPPF ---
Anes - Initial Pre Proc Eval Procedure: Operation Date: 02/25/24 11:00 Proposed Procedures p Colonoscopy - Bennett Mcintosh MD Date/Time: 02/25/24 10:35 Surgeon: Bennett Mcintosh MD Pre Op Diagnosis: fecal abnormalities Patient Data Age: 68 Gender: F Height: 1.5 m Weight: 92 kg Last Vital Signs Temp 36.1 C L 02/25/24 09:59 Pulse 103 H 02/25/24 09:59 Resp 20 02/25/24 09:59 BP 144/84 H 02/25/24 09:59 Pulse Ox 97 02/25/24 09:59 O2 Del Method Room Air 02/25/24 09:59 Allergies Allergy/AdvReac Type Severity Reaction Status Date / Time No Known Allergies Allergy Verified 02/25/24 09:58 Home Medications Medication Instructions Recorded Confirmed Type budesonide 0.25 mg/2 mL suspension 0.25 mg (2 mL) irrigation BID #120 07/29/23 02/25/24 Rx for nebulization mL atenolol 25 mg tablet 25 mg PO DAILY 09/16/23 02/25/24 History cetirizine 10 mg tablet (Zyrtec) 10 mg PO DAILY 09/16/23 02/25/24 History chlorpheniramine maleate 4 mg 4 mg PO Q6H PRN Congestion 09/16/23 02/25/24 History tablet losartan 25 mg tablet 25 mg PO DAILY 09/16/23 02/25/24 History albuterol sulfate 90 mcg/actuation 1 puff inhalation Q4H PRN 09/27/23 02/25/24 History aerosol inhaler Shortness Of Breath Or Wheezing guaifenesin 600 mg tablet, 600 mg PO Q12H PRN Congestion 09/27/23 02/25/24 History extended release 12 hr (Mucinex) triamcinolone acetonide 0.1 % See Rx Instructions .Route 09/27/23 02/25/24 History topical ointment .COMPLEX PRN Rash omeprazole 40 mg capsule,delayed 40 mg PO DAILY #90 caps 11/09/23 02/25/24 Rx release azelastine 137 mcg (0.1 %) nasal 1 - 2 spray intranasal Q12H #30 mL 11/17/23 02/25/24 Rx spray ergocalciferol (vitamin D2) 1,250 See Rx Instructions .Route 11/22/23 02/25/24 Rx mcg (50,000 unit) capsule (Vitamin .COMPLEX #12 caps D2) levothyroxine 112 mcg tablet 112 mcg PO DAILY 3 months #90 tabs 12/21/23 02/25/24 Rx folic acid 1 mg tablet 1 mg PO DAILY #90 tabs 01/15/24 02/25/24 Rx atorvastatin 20 mg tablet 20 mg PO HS #90 tabs 01/17/24 02/25/24 Rx dapagliflozin propanediol 5 mg 5 mg PO DAILY 02/17/24 02/25/24 History tablet (Farxiga) [id number]-[id number] 8 mg-folic 400 1 tablet PO DAILY 02/17/24 02/25/24 History mcg-K 50 mcg-lutein 300 mcg tablet (Centrum Silver Women) simethicone 125 mg capsule 125 mg PO BID 02/17/24 02/25/24 History sucralfate 1 gram tablet 1 g PO HS 02/17/24 02/25/24 History metformin 500 mg tablet,extended 1,000 mg PO BID 3 months #360 tabs 02/21/24 02/25/24 Rx release 24 hr Laboratory Tests 02/25/24 10:09 POC Capillary Glucose 151 H mg/dl (65-105) Patient hx anesthesia problems: none Family hx anesthesia problems: none Results Review: All pre-operative results and documents have been reviewed as part of the pre-operative evaluation. [facility] Past Medical History Medical History (Updated 02/24/24 @ 15:27 by Lucas Bolton DO) Allergic rhinitis BCC (basal cell carcinoma of skin) BMI greater than 30 Colon cancer screening Dermatofibroma Dietary counseling and surveillance Epigastric pain Fatigue Gastroesophageal reflux Generalized osteoarthritis of multiple sites Hypertension Iron deficiency Lymphedema Mixed hyperlipidemia Muscle cramps Nasal congestion Nasal crusting Nasal polyps Nondisplaced fracture of distal phalanx of right thumb LAURI (obstructive sleep apnea) PND (post-nasal drip) Pneumococcal vaccine administered Post-menopausal Post-operative pain Post-operative pain Psoriasis Right hand pain Screening mammogram, encounter for Skin cancer screening Subcutaneous mass Vitamin B12 deficiency Vitamin D deficiency Wellness examination Surgical History Surgical History History of basal cell carcinoma excision History of bilateral breast biopsy History of hand surgery R hand reconstruction History of thyroidectomy Family History Family History Sibling Patient's sister is in good health Patient's brother is in good health Family history of lymphoma, Onset Age: 31 Patient's brother is Mother Family history of diabetes mellitus in first degree relative Family history of irritable bowel syndrome Family history of thyroid disease Family history of cataracts Family history of anemia Father Family history of diabetes mellitus in first degree relative Patient's father is Other Diabetes mellitus Family history of allergic disorder Family history of arthritis Family history of attention deficit hyperactivity disorder (ADHD) Family history of malignant neoplasm Social History Social History Social History: Caffeine-coffee Smoking status: Never smoker Second hand tobacco smoke exposure: No Alcohol intake: current Substance use: never Substance use type: does not use Lack of Transportation: No Lack of Food: Never True Current Housing: I Have Housing Concerned About Future Housing: No Difficulty Paying Gas/Electric Bills: No Difficulty Paying for Meds: No Currently Unemployed: No Education: Decline to Answer Difficulty w/ Childcare or Family Care: No Living arrangements: with family Occupation/Education: retired Gender identity (if verbalized by the patient): Female Spiritual care concerns: No Anes - Eval Final PreProcedure Day of Procedure 02/25/24 10:35 Patient weight: morbidly obese Heart: regular rate and rhythm Lungs: clear to auscultation Airway: Mallampati scale class II Neurological: alert and oriented Last oral intake: >/= 8 hours ASA classification: III Emergent: no Anesthetic plan: proceed Anesthesia type and monitoring: general GIVS and standard monitoring Results Review: All pre-operative results and documents have been reviewed as part of the pre-operative evaluation. Informed Consent: The patient's anesthetic plan and its attendant risks and benefits were discussed with the patient/family/POA. Questions were solicited and answers provided to the satisfaction of the patient/family/POA.
--- NOTE | 2024-02-25 11:03 | P.HP_ITS ---
H&P: HPI History of Present Illness Date/Time: 02/25/24 11:03 Chief Complaint: history of colon polyps Narrative: The patient has a history of colonic polyps, the last colonoscopy was 6 years ago. in addition, the patient has been diagnosed with iron deficiency anemia and she had an unremarkable EGD. She is here for colonoscopy. Review of Systems Review of Systems: All systems reviewed & are unremarkable except as noted in HPI and below PMFSH Past Medical History Medical History (Updated 02/25/24 @ 11:04 by Bennett Mcintosh MD) Allergic rhinitis BCC (basal cell carcinoma of skin) BMI greater than 30 Colon cancer screening Dermatofibroma Dietary counseling and surveillance Epigastric pain Fatigue Gastroesophageal reflux Generalized osteoarthritis of multiple sites Hypertension Iron deficiency Lymphedema Mixed hyperlipidemia Muscle cramps Nasal congestion Nasal crusting Nasal polyps Nondisplaced fracture of distal phalanx of right thumb LAURI (obstructive sleep apnea) PND (post-nasal drip) Pneumococcal vaccine administered Post-menopausal Post-operative pain Post-operative pain Psoriasis Right hand pain Screening mammogram, encounter for Skin cancer screening Subcutaneous mass Vitamin B12 deficiency Vitamin D deficiency Wellness examination Surgical History Surgical History History of basal cell carcinoma excision History of bilateral breast biopsy History of hand surgery R hand reconstruction History of thyroidectomy Family History Family History Sibling Patient's sister is in good health Patient's brother is in good health Family history of lymphoma, Onset Age: 31 Patient's brother is Mother Family history of diabetes mellitus in first degree relative Family history of irritable bowel syndrome Family history of thyroid disease Family history of cataracts Family history of anemia Father Family history of diabetes mellitus in first degree relative Patient's father is Other Diabetes mellitus Family history of allergic disorder Family history of arthritis Family history of attention deficit hyperactivity disorder (ADHD) Family history of malignant neoplasm Social History Social History Social History: Caffeine-coffee Smoking status: Never smoker Second hand tobacco smoke exposure: No Alcohol intake: current Substance use: never Substance use type: does not use Lack of Transportation: No Lack of Food: Never True Current Housing: I Have Housing Concerned About Future Housing: No Difficulty Paying Gas/Electric Bills: No Difficulty Paying for Meds: No Currently Unemployed: No Education: Decline to Answer Difficulty w/ Childcare or Family Care: No Living arrangements: with family Occupation/Education: retired Gender identity (if verbalized by the patient): Female Spiritual care concerns: No Meds Home Medications and Allergies Home Medications Medication Instructions Recorded Confirmed Type budesonide 0.25 mg/2 mL suspension 0.25 mg (2 mL) irrigation BID #120 07/29/23 02/25/24 Rx for nebulization mL atenolol 25 mg tablet 25 mg PO DAILY 09/16/23 02/25/24 History cetirizine 10 mg tablet (Zyrtec) 10 mg PO DAILY 09/16/23 02/25/24 History chlorpheniramine maleate 4 mg 4 mg PO Q6H PRN Congestion 09/16/23 02/25/24 Hi story tablet losartan 25 mg tablet 25 mg PO DAILY 09/16/23 02/25/24 History albuterol sulfate 90 mcg/actuation 1 puff inhalation Q4H PRN 09/27/23 02/25/24 History aerosol inhaler Shortness Of Breath Or Wheezing guaifenesin 600 mg tablet, 600 mg PO Q12H PRN Congestion 09/27/23 02/25/24 History extended release 12 hr (Mucinex) triamcinolone acetonide 0.1 % See Rx Instructions .Route 09/27/23 02/25/24 History topical ointment .COMPLEX PRN Rash omeprazole 40 mg capsule,delayed 40 mg PO DAILY #90 caps 11/09/23 02/25/24 Rx release azelastine 137 mcg (0.1 %) nasal 1 - 2 spray intranasal Q12H #30 mL 11/17/23 02/25/24 Rx spray ergocalciferol (vitamin D2) 1,250 See Rx Instructions .Route 11/22/23 02/25/24 Rx mcg (50,000 unit) capsule (Vitamin .COMPLEX #12 caps D2) levothyroxine 112 mcg tablet 112 mcg PO DAILY 3 months #90 tabs 12/21/23 02/25/24 Rx folic acid 1 mg tablet 1 mg PO DAILY #90 tabs 01/15/24 02/25/24 Rx atorvastatin 20 mg tablet 20 mg PO HS #90 tabs 01/17/24 02/25/24 Rx dapagliflozin propanediol 5 mg 5 mg PO DAILY 02/17/24 02/25/24 History tablet (Farxiga) novyxxkw-yvxe-wwaa 8 mg-folic 400 1 tablet PO DAILY 02/17/24 02/25/24 History mcg-K 50 mcg-lutein 300 mcg tablet (Centrum Silver Women) simethicone 125 mg capsule 125 mg PO BID 02/17/24 02/25/24 History sucralfate 1 gram tablet 1 g PO HS 02/17/24 02/25/24 History metformin 500 mg tablet,extended 1,000 mg PO BID 3 months #360 tabs 02/21/24 02/25/24 Rx release 24 hr Allergies Allergy/AdvReac Type Severity Reaction Status Date / Time No Known Allergies Allergy Verified 02/25/24 09:58 Vital Signs Vital Signs - 24 hr 02/25/24 09:59 Temperature 96.9 F L Pulse Rate 103 H Respiratory Rate 20 Blood Pressure 144/84 H Pulse Oximetry 97 Oxygen Delivery Room Air Exam Const: General: cooperative and healthy appearing Resp: Effort & Inspection: normal respiratory effort and able to speak in complete sentences Auscultation: clear to auscultation bilaterally Cardio: Rate: regular rate Rhythm: regular rhythm GI: Inspection: normal to inspection GI Palp: No No hepatosplenomegaly present Auscultation: normal bowel sounds Rectal Exam: deferred Skin: General skin exam: normal color Psych: Appearance: grossly normal Mental Status: mental status grossly normal Assessment and Plan Assessment and plan (1) Colon cancer screening: Code(s): Z12.11 - Encounter for screening for malignant neoplasm of colon Status: Acute Assessment and Plan: The patient is deemed a good candidate for the procedure. Consent signed. Will proceed. (2) Iron deficiency: Code(s): E61.1 - Iron deficiency Status: Acute
[2024-02-25] MEDS: fentaNYL CITRATE INJ (*CRX) 100 MCG/2 ML VIAL 25 MCG IV PUSH (12:08)
--- NOTE | 2024-02-25 12:58 | SUR.PHASEII ---
Pt rating abdominal pain 05/29. Neck pain 05/29. Dr. Mcintosh at bedside. Ok to d/c. Pt eating ice chips and states feeling much better. Ambulated to bathroom without increase in pain. Instructions reviewed with pt and Dr. Mcintosh's phone number given. Pt and family stated understanding.
== END 2024-02-25 13:08 | disposition home or self-care (01) ==
PROVIDERS: PCP Family Medicine; Referring Provider Student in an Organized Health Care Education/Training Program; Visit Provider Internal Medicine Gastroenterology
PROC: 0DJD8ZZ Inspection of Lower Intestinal Tract, Via Natural or Artificial Opening Endoscopic (ICD-10-PCS; CPT 45378; principal; 2024-02-25 11:00)
DX: D50.9 Iron deficiency anemia, unspecified (principal); D12.2 Benign neoplasm of ascending colon; D12.3 Benign neoplasm of transverse colon; D12.4 Benign neoplasm of descending colon; D12.5 Benign neoplasm of sigmoid colon; E78.2 Mixed hyperlipidemia; G47.33 Obstructive sleep apnea (adult) (pediatric); I10 Essential (primary) hypertension; K21.9 Gastro-esophageal reflux disease without esophagitis; E55.9 Vitamin D deficiency, unspecified; Z79.51 Long term (current) use of inhaled steroids; Z79.84 Long term (current) use of oral hypoglycemic drugs; E66.01 Morbid (severe) obesity due to excess calories; Z68.41 Body mass index [BMI] 40.0-44.9, adult
CPT/HCPCS: 45385; 82948; 88305; J2003; J2704; J3010; J7120

== ENCOUNTER 2024-03-09 11:52 | Outpatient (CLI) | payer MEDICARE, SELFPAY ==
[2024-03-09 12:23] LABS: Basophils Absolute Auto 0.1 K/mm3 (0.0-0.1); Basophils Percent Auto 0.8 % (0.2-1.2); Eosinophils Absolute Auto 0.3 K/mm3 (0-0.3); Eosinophils Percent Auto 5.1 % (0-4.4); Hematocrit 38.1 % (37.0-47.0); Immature Granulocyte Absolute 0.01 K/mm3 (0.00-0.031); Immature Granulocyte Percent A 0.2 % (0-0.5); Lymphocytes Absolute Auto 1.91 K/mm3 (0.9-3.2); Lymphocytes Percent Auto 29.4 % (18.3-44.2); Mean Corpuscular HGB Conc 31.5 g/dl (32-36); Mean Corpuscular Hemoglobin 25.4 pg (26-34); Mean Corpuscular Volume 80.7 fl (80-100); Mean Platelet Volume 10.7 fl (7.4-10.4); Monocytes Absolute Auto 0.4 K/mm3 (0.1-0.6); Monocytes Percent Auto 6.3 % (2.6-8.5); Neutrophils Absolute Auto 3.8 K/mm3 (1.3-6.7); Neutrophils Percent Auto 58.2 % (45.5-73.1); Platelet Count Result 297 k/mm3 (150-375); Red Blood Count 4.72 M/mm3 (4.2-5.4); Red Cell Distribution Width 14.1 % (11.5-14.5); White Blood Count 6.5 K/mm3 (4.5-10.0)
[2024-03-09 12:58] LABS: Iron 44 ug/dL (37-170)
[2024-03-09 13:07] LABS: Percent Iron Saturation 10 % (20-50)
[2024-03-09 13:34] LABS: Ferritin 5.37 ng/mL (11.1-264)
== END 2024-03-09 11:53 | disposition home or self-care (01) ==
LOC: ANHLAB 11:54
PROVIDERS: PCP Family Medicine; Visit Provider Family Medicine
DX: E61.1 Iron deficiency (principal); E53.8 Deficiency of other specified B group vitamins
CPT/HCPCS: 36415; 82607; 82728; 83540; 83550; 85025

== ENCOUNTER 2024-05-25 09:30 | Outpatient (CLI) | payer MEDICARE, SELFPAY ==
--- NOTE | ~2024-05-25 | MR_ITS ---
MRI of the thoracic spine Clinical History: Pain Technique: Axial T2-weighted and gradient images, and sagittal T1-weighted, T2-weighted, and STIR mely ges were acquired. Findings: There is no acute fracture or subluxation of the thoracic spine. Vertebral bodies maintain normal height and alignment. No suspicious bone marrow signal abnormality seen. There is moderate to advanced degenerative disc narrowing throughout the mid to lower thoracic spine, worst at the mid levels, from T5 through T9. There are a few scattered minimal disc bulges, there is no significant spinal canal stenosis or cord compression at any thoracic level. There are mild facet joint degenerative changes of the lower thoracic spine. Neural foramina are preserved throughout the thoracic spine, aside from mild narrowing at T9-T10 and T10-T11 bilaterally. No abnormal signal seen in the spinal cord. Paravertebral soft tissues are unremarkable. Impression: No acute abnormality. Degenerative spondylitic changes, as above, overall mild to moderate degree. Reviewed, dictated and finalized at [facility]. [employer] Impression: No acute abnormality. Degenerative spondylitic changes, as above, overall mild to moderate degree.
== END 2024-05-25 09:31 | disposition home or self-care (01) ==
LOC: MICIMG 09:30
PROVIDERS: PCP Family Medicine; Visit Provider Family Medicine
DX: M54.6 Pain in thoracic spine (principal)
CPT/HCPCS: 72146

== ENCOUNTER 2024-06-09 13:57 | Outpatient (CLI) | payer MEDICARE, SELFPAY ==
--- OUTSIDE RECORDS SUMMARY | 2024-06-09 14:00 | XMS_ITS ---
Author Organization [facility] Address [address] [place], [place] [id number] Care Team Providers Care [place] Expert Name Role Phone TERESA LARSON Unavailable [phone] Tara Arrieta Unavailable Unavailable Allergies No Known Allergies REASON FOR VISIT Patient presents for at-risk foot care . The patient has painful toenails that cause difficulty with ambulation and shoegear. The onset is gradual Medications Medication SIG (Take, Route, Frequency, Duration) Notes Start Date End Date Status Chlor-Trimeton Activ e Mucinex Active Multivitamin Active ZyrTEC 10 MG 1 tablet Orally Once a day Active Atenolol 25 MG 1 tablet Orally Once a day Active Atorvastatin Calcium 10 MG 1 tablet Oral ly Once a day Active Sucralfate 1 GM 1 tablet on an empty stomach Orally Twice a day Active Levothyroxine Sodium 88 MCG 1 tablet in the morning on an empty stomach Orally Once a day Active metFORMIN HCl ER (MOD) 500 MG 1 tablet with evening meal Orally Once a day Active Losartan Potassium-HCTZ 100-25 MG 1 tablet Orally Once a day Active Vitamin D2 Active Encounters Encounter Location Date Provider Diagnosis [facility] [address] [place], [place] [id number] 06/05/2024 TERESA LARSON Tinea unguium B35.1 Assessments Encounter Date Diagnosis (ICD Code) Assessment Notes Treatment Notes Treatment Clinical Notes Section Notes 06/05/2024 Tinea unguium (ICD-10 - B35.1) FUNGAL TOENAILS: Discussed various treatment options for fungal toenails including debridement, topical antifungals, oral antifungals, toenail avulsion, or toenail matrixectomy. NAIL DEBRIDEMENT: Nails 1-5 Bilateral were debrided extensively with nail nippers and emery board, reducing length and girth to pink healthy tissue with any subungual debris and necrotic tissue removed Plan Of Treatment Treatment Notes Assessment Notes Tinea unguium FUNGAL TOENAILS: Discussed various treatment options for fungal toenails including debridement, topical antifungals, oral antifungals, toenail avulsion, or toenail matrixectomy. NAIL DEBRIDEMENT: Nails 1-5 Bilateral were debrided extensively with nail nippers and emery board, reducing length and girth to pink healthy tissue with any subungual debris and necrotic tissue removed Next Appt Details Follow Up: 10-12 Weeks, Reas on: At Risk Foot care, sooner if problems arise Provider Name:TERESA LARSON, 02:20:00 PM, [address], [address], [id number], Progress Notes * PINKY ZAPATA MDOB: (68 yo F)Acc No.[id number]:06/05/2024 Patient: PINKY NOVA Provider: Roula Larson DPM :1955 A ge:68 Y S ex:Female Date:06/05/2024 Address:[address] [place], [place] [id number] Subjective: * Chief Complaints: * 1 . Patient presents for at-risk foot care . The patient has painful toenails that cause difficulty with ambulation and shoegear. The onset is gradual. * HPI: H PI: General care P atient presents to the office for at risk foot care. Patient states that their nails are thickened, elongated and painful. Patient states that it is aggravated by shoe gear. Onset is gradual. Patient denies being diabetic., Patient denies taking blood thinners., Date last seen by Dr. Arrieta was March 2024., Initials LB. sample. * ROS: G eneral / Constitutional: Patient denies c hills, fever, weight loss. ? M usculoskeletal: Patient denies w eakness, broken foot bone. ? P eripheral Vascular: Patient denies p ain / cramping in legs after exertion, ulceration of feet. P atient complains of l ymph edema. S kin: Patient complains of f ungal nails, nail changes, calluses and corns. N eurologic: Patient denies b alance difficulty, confusion, difficulty speaking, dizziness. * Medical History: * Family History: F ather: PRN - Father: :: Gout,,known absent , :: Cancer,,known absent , :: Arthritis,,known absent , :: Diabetes,,known absent , :: Stroke,,known absent . M other: PRN - Mother: :: Thyroid Dz,,known absent , :: Arthritis,,known absent , :: Diabetes,,known absent . B rother: SIB - Brother: :: Cancer,,known absent . S ister: SIB - Sister: :: Thyroid Dz,,known absent . * Social History: M igrated Social History: M igrated Social History: Alcohol intake : , History of tobacco use : , Smoking Status : Never used tobacco. * Medications: T aking Multivitamin , Taking ZyrTEC 10 MG Tablet Chewable 1 tablet Orally Once a day , Taking Chlor-Trimeton , Taking Mucinex , Taking Vitamin D2 , Taking Sucralfate 1 GM Tablet 1 tablet on an empty stomach Orally Twice a day , Taking Atorvastatin Calcium 10 MG Tablet 1 tablet Orally Once a day , Taking metFORMIN HCl ER (MOD) 500 MG Tablet Extended Release 24 Hour 1 tablet with evening meal Orally Once a day , Taking Losartan Potassium-HCTZ 100-25 MG Tablet 1 tablet Orally Once a day , Taking Levothyroxine Sodium 88 MCG Tablet 1 tablet in the morning on an empty stomach Orally Once a day , Taking Atenolol 25 MG Tablet 1 tablet Orally Once a day , Medication List reviewed and reconciled with the patient * Allergies: N .K.D.A. Objective: * Vitals: * Examination: C onstitutional: Constitutional T he patient is awake, alert, well developed, well groomed and well nourished. D ermatologic: Skin findings: S kin is thin, atrophic and lacking pedal hair. Nail pathology: N ails 1, 2, 3, 4, and 5 bilateral are elongated, thick, discolored, and dystrophic with subungual debris. They are painful to palpation. ? V ascular: Dorsalis pedis pulse: 1 /4 b ilateral. Posterior tibial pulse: 0 /4 b ilateral. Capillary refill: g reater than 3 seconds. Edema: N o edema, bilateral. N eurologic: Gross sensation G ross sensation is intact to light touch.? M usculoskeletal: Muscle Strength M uscle strength is 5/5 in regards to dorsiflexion, plantarflexion, inversion, and eversion in bilateral lower extremities. ? Assessment: * Assessment: 1. T trina stoddardmichell - B35.1 (Primary) Plan: * Treatment: * Follow Up: 1 0-12 Weeks (Reason: At Risk Foot care, sooner if problems arise) * Billing Information: * Visit Code: * Procedure Codes: * Electronic signature of TERESA LARSON DPM on 06/09/2024 at 02:00 PM [employer]TERN[employer]ER Sign off status: Pending * Provider: Roula Larson DPM Date: 0 06/05/2024 Generated for Nupur swift/Dmitriy/Dillon on: 0 06/09/2024 02:00 PM D[employer]TERN[employer] History and Physical Notes * HPI (History of Present Illness) Category Sub-Category Detail Notes Category Not es HPI General care Patient presents to the office for at risk foot care. Patient states that their nails are thickened, elongated and painful. Patient states that it is aggravated by shoe gear. Onset is gradual. Patient denies being diabetic., Patient denies taking blood thinners., Date last seen by Dr. Arrieta was March 2024., Initials LB sample Examination Category Sub-Category Detail Notes Category Not es Dermatologic Skin findings: Skin is thin, at rophic and lacking pedal hair Nail pathology: Nails 1, 2, 3, 4, an d 5 bilateral are elongated, thick, discolored, and dystrophic with subungual debris. They are painful to palpation Neurologic Gross sensation Gross sensation is intact to light touch Vascular Dorsalis pedis pulse: 1/4 bilateral Edema: No edema, bilateral Capillary refill: greater than 3 secon ds Posterior tibial pulse: 0/4 bilateral Musculoskeletal Muscle Strength Muscle strength is 5/5 in regards to dorsiflexion, plantarflexion, inversion, and eversion in bilateral lower extremities Constitutional Constitutional The patient is a wake, alert, well developed, well groomed and well nourished
--- OUTSIDE RECORDS SUMMARY | 2024-06-09 14:00 | XMS_ITS | Clinical Summary ---
Author Organization [facility] [employer] Address [address] [facility] [place] [address] Care Team Providers Care Solar Sales Manager Name Role Phone Tara Arrieta MD Primary Care Provider [phone] Source Comments [facility] [employer],non-owned Affiliates and Associated Physician Practices is amultiple site organization consisting of ambulatory clinics and hospital sitesin [place], [place], [place] and [place]. This disclosure is being madepursuant to the Care Everywhere program and may not contain all information available regarding this patient. Last updated 18.[facility] [employer] Allergies No known active allergies Medications * Be aware that medications may not be up to date on this document. Alwaysverify current medications with the patient. Medication Sig Dispensed Refills Start Date End Date Status albuterol HFA (Proventil; Ventolin; Proair) 108 (90 Base) MCG/ACT inhaler Inhale 2 (two) puffs by mouth every 6 hours as needed 10/21/2022 Active atenolol (Tenormin) 25 MG tablet Take 1 (one) tablet by mouth once daily Active azelastine (Astelin) 0.1 % nasal spray [place] 2 (two) sprays into each nostril as needed 01/07/2023 Active budesonide (Pulmicort) 0.25 MG/2ML nebulizer suspension Inhale 2 mL by mouth as directed 07/30/2023 Active cetirizine (ZyrTEC) 10 MG chew tablet Take 1 (one) tablet by mouth once daily Active Cholecalciferol 1.25 MG (30691 UT) Take 50,000 Units by mouth every 7 days Active fluticasone propionate (Flonase) 50 MCG/ACT nasal spray [place] 2 (two) sprays into each nostril as needed 03/19/2023 Active losartan (Cozaar) 25 MG tablet Take 1 (one) tablet by mouth once daily 09/20/2023 Active metFORMIN ER 24hr (Glucophage XR) 500 MG tablet Take 2 (two) tablets by mouth 2 times daily 03/26/2023 Active methocarbamol (Robaxin) 750 MG tablet Take 1 (one) tablet by mouth as needed 09/28/2022 Active omeprazole (PriLOSEC) 40 MG capsule Take 1 (one) capsule by mouth once daily 08/01/2023 Active sucralfate (Carafate) 1 GM tablet Take 1 (one) tablet by mouth once daily Active triamcinolone acetonide (Kenalog) 0.1 % ointment Apply to affected area as needed 07/30/2023 Active vitamin D, ergocalciferol, (Drisdol) 1.25 MG (52837 UT) capsule Take 1 (one) capsule by mouth every 7 days 11/22/2023 Active folic acid (Folvite) 1 MG tablet Take 1 (one) tablet by mouth once daily 01/19/2024 Active atorvastatin (Lipitor) 20 MG tablet Take 1 (one) tablet by mouth at bedtime 01/17/2024 Active levothyroxine (Synthroid) 112 MCG tablet Take 1 (one) tablet by mouth once daily 12/21/2023 Active clotrimazole (Lotrimin AF) 1 % cream Apply to affected area as directed 04/25/2024 Active Farxiga 5 MG tablet Take 1 (one) tablet by mouth once daily 03/16/2024 Active amitriptyline (Elavil) 10 MG tablet Take 1 (one) tablet by mouth at bedtime Active Active Problems Problem Noted Date Diagnosed Date 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 No need for rheumatology follow up and symptomatic Rx as needed per PCP. 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 (AF LURIA, FLUZONE TRIVALENT; 6MO+) (IIV3) 02/06/2014 COVID MODERNA 12+ yr 50mcg/0.5mL 03/11/2024 Covid Moderna primary monova lent 12+ yr 0.5mL 09/26/2021,03/28/2021,07/10/2020,2020 FLU VACCINE TRI IIV3 SPLIT I M (FLUVIRIN) 01/06/2018 INFLUENZA VACCINE, HIGH-DOSE , QUADR. (FLUZONE HIGH-DOSE QUADRIVALENT; 65Y+), 0.7 ML (HD-IIV4) 02/04/2022 INFLUENZA VACCINE, HIGH-DOSE , TRIV. (FLUZONE HIGH-DOSE TRIVALENT; 65Y+) (HD-IIV3) 02/28/2024 INFLUENZA VACCINE, QUADR. (F LUZONE; FLULAVAL; FLUARIX; AFLURIA QUADRIVALENT; 6MO+), 0.5 ML (IIV4) 03/28/2021,01/23/2019 PNEUMOCOCCAL PCV20 CONJ VAC IM 07/09/2021 PNEUMOCOCCAL PPV VACCINE 11/17/2019 Pneumococcal Pcv13 Conj 05/15/2020 Zoster Hzv Vacc Recombinant Inj Im 10/18/2020 Social History Tobacco Use Types Packs/Day Years Used Date Smoking Tobacco: Never Smokeless Tobacco: Never Tobacco Cessation:Counseling Given: Not Answered Alcohol Use Standard Drinks/Week Comments Yes 0 (1 standard drink = 0.6 oz pur e alcohol) occ Sex and Gender Information Value Date Recorded Sex Assigned at Not on file Gender Identity Not on file Sexual Orientation Not on file Last Filed Vital Signs Vital Sign Reading Time Taken Comments Blood Pressure 148/86 05/29/2024 9:49 AM PORT CDL A DRIVER Pulse 102 05/29/2024 9:49 AM PORT CDL A DRIVER Temperature - - Respiratory Rate - - Oxygen Saturation - - Inhaled Oxygen Concentration - - Weight 91.8 kg (202 lb 6.4 oz) 05/29/2024 9:49 A M PORT CDL A DRIVER Height 149.9 cm (4' 11 ) 05/29/2024 9:49 AM PORT CDL A DRIVER Body Mass Index 40.88 05/29/2024 9:49 AM PORT CDL A DRIVER Plan of Treatment Upcoming Encounters Date Type Department Care Team (Late st Contact Info) Description 07/10/2024 8:00 AM CDT Appointment [facility] CAT SCAN [address] [place] [phone] [place] [address] [place] [address] [place] [address] 07/10/2024 8:45 AM CDT Office Visit [facility] - ENT [address] [place] [phone] Marshall Lux MD [address] [place] [address] Health Maintenance Due Date Last Done Comments BONE DENSITY TESTING 1955 COLON MONITORING 1955 COLONOSCOPY - COLON CA SCREENING 1955 CT COLONOGRAPHY - COLON CA SCREENING 1955 FIT - COLON CA SCREENING 1955 FLEX SIG - COLON CA SCREENING 1955 MAMMOGRAM 1955 HEPATITIS C SCREENING 12/07/1972 DTAP/TDAP/TD VACCINES (1 - Tdap) 1973 Respiratory Syncytial Virus (RSV) Vaccine Pt: or over 60 yrs (1 - Risk 60-74 years 1-dose series) 2014 ZOSTER VACCINE (2 of 2) 12/13/2020 10/18/2020 SCREENING FOR DIABETES 10/25/2023 DEPRESSION SCREENING 04/19/2024 MEDICARE AWV CALENDAR YEAR 2024 COLOGUARD (AGES 45-75) - COLON CA SCREENING 02/01/2027 02/02/2024 Colorectal Cancer Screening 02/01/2027 PNEUMOCOCCAL VACCINE 50+ Completed 022, 05/15/2020, 11/17/2019 INFLUENZA VACCINE Completed 02/28/2024, , 03/28/2021, Additional history exists COVID-19 VACCINE Completed 03/11/2024, 01/2022, 03/28/2021, Additional history exists HEPATITIS B VACCINE Aged Out No longe r eligible based on patient's age to complete this topic HIB VACCINE Aged Out No longer eligi ble based on patient's age to complete this topic HPV VACCINE Aged Out No longer eligi ble based on patient's age to complete this topic MENINGOCOCCAL (Group B) VACCINE Aged Out No longer eligible based on patient's age to complete this topic MENINGOCOCCAL VACCINE Aged Out No margoth michael eligible based on patient's age to complete this topic Care Teams Solar Sales Manager Relationship Specialty Start Date End Date Tara Arrieta MD [address] [place] [address] PCP - General Family Medicine 10/25/23
--- OUTSIDE RECORDS SUMMARY | 2024-06-09 14:00 | XMS_ITS | Referral Summary ---
Author Organization [facility] Address [address] [facility] [place] [address] Care Team Providers Care Cake Washer Name Role Phone Tara Arrieta MD Primary Care Provider [phone] Source Comments [facility],non-owned Affiliates and Associated Physician Practices is amultiple site organization consisting of ambulatory clinics and hospital sitesin [place], [place], [place] and [place]. This disclosure is being madepursuant to the Care Everywhere program and may not contain all information available regarding this patient. 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 Office Visit [facility] - [facility]NT [address] [place] [phone] Marshall Lux MD Chronic sinusitis, unspecified location (Primary Dx) from Last 3 Months Allergies No known active allergies Medications * [...] Active azelastine (Astelin) 0.1 % nasal spray [place] 2 (two) sprays into each nostril as needed 01/07/2023 Active budesonide (Pulmicort) 0.25 MG/2ML nebulizer suspension Inhale 2 mL by mouth as directed 07/30/2023 Active cetirizine (ZyrTEC) 10 MG chew tablet Take 1 (one) tablet by mouth once daily Active Cholecalciferol 1.25 MG (46206 UT) Take 50,000 Units by mouth every 7 days Active fluticasone propionate (Flonase) 50 MCG/ACT nasal spray [place] 2 (two) sprays into each nostril as [...] Active vitamin D, ergocalciferol, (Drisdol) 1.25 MG (84586 UT) capsule Take 1 (one) capsule by [...] and symptomatic Rx as needed per PCP. Immunizations Name Administration Dates Next Due INFLUENZA [...] Comments Blood Pressure 148/86 05/29/2024 9:49 AM TYPE PROOF REPRODUCER Pulse 102 05/29/2024 9:49 AM TYPE PROOF REPRODUCER Temperature - - Respiratory Rate - - Oxygen Saturation - - Inhaled Oxygen Concentration - - Weight 91.8 kg (202 lb 6.4 oz) 05/29/2024 9:49 A M TYPE PROOF REPRODUCER Height 149.9 cm (4' 11 ) 05/29/2024 9:49 AM TYPE PROOF REPRODUCER Body Mass Index 40.88 05/29/2024 9:49 AM TYPE PROOF REPRODUCER Plan of Treatment Upcoming Encounters Date Type Department Care Team (Late st Contact Info) Description 07/10/2024 8:00 AM CDT Appointment [facility] CAT SCAN [address] [place] [phone] Marshall Lux MD [address] [facility] [address] [place] [address] 07/10/2024 8:45 AM CDT Office Visit [facility] - ENT [address] [place] [phone] Marshall Lux MD [address] [facility] [address] [place] [address] Care Teams Cake Washer Relationship Specialty Start Date End Date Tara Arrieta MD [address] [place] [address] PCP - General Family Medicine 10/25/23
--- OUTSIDE RECORDS SUMMARY | 2024-06-09 14:00 | XMS_ITS | Patient Health Summary ---
Author Organization [facility] Address [address] [facility] [place] [address] Care Team Providers Care Reception Centre Manager Name Role Phone Tara Arrieta MD Primary Care Provider [phone] Note from Formerly named [facility],non-owned Affiliates and Associated Physician Practices is amultiple site organization consisting of ambulatory clinics and hospital sitesin [place], [place] and [place]. This disclosure is being madepursuant to the Care Everywhere program and may not contain all information available regarding this patient. Last updated 18.[facility] Allergies No known active allergies Medications * Be aware that medications may not be up to date on this document. Alwaysverify current medications with the patient. * albuterol HFA (Proventil; Ventolin; Proair) 108 (90 Base) MCG/ACT inhaler (Started 10/21/2022) Inhale 2 (two) puffs by mouth every 6 hours as needed * atenolol (Tenormin) 25 MG tablet Take 1 (one) tablet by mouth once daily * azelastine (Astelin) 0.1 % nasal spray(Started 01/07/2023) [place] 2 (two) sprays into each nostril as needed * budesonide (Pulmicort) 0.25 MG/2ML nebulizer suspension(Started 07/30/2023) Inhale 2 mL by mouth as directed * cetirizine (ZyrTEC) 10 MG chew tablet Take 1 (one) tablet by mouth once daily * Cholecalciferol 1.25 MG (82816 UT) Take 50,000 Units by mouth every 7 days * fluticasone propionate (Flonase) 50 MCG/ACT nasal spray(Started 03/19/2023) [place] 2 (two) sprays into each nostril as needed * losartan (Cozaar) 25 MG tablet(Started 09/20/2023) Take 1 (one) tablet by mouth once daily * metFORMIN ER 24hr (Glucophage XR) 500 MG tablet(Started 03/26/2023) Take 2 (two) tablets by mouth 2 times daily * methocarbamol (Robaxin) 750 MG tablet(Started 09/28/2022) Take 1 (one) tablet by mouth as needed * omeprazole (PriLOSEC) 40 MG capsule(Started 08/01/2023) Take 1 (one) capsule by mouth once daily * sucralfate (Carafate) 1 GM tablet Take 1 (one) tablet by mouth once daily * triamcinolone acetonide (Kenalog) 0.1 % ointment(Started 07/30/2023) Apply to affected area as needed * vitamin D, ergocalciferol, (Drisdol) 1.25 MG (35696 UT) capsule(Started 11/22/2023) Take 1 (one) capsule by mouth every 7 days * folic acid (Folvite) 1 MG tablet(Started 01/19/2024) Take 1 (one) tablet by mouth once daily * atorvastatin (Lipitor) 20 MG tablet(Started 01/17/2024) Take 1 (one) tablet by mouth at bedtime * levothyroxine (Synthroid) 112 MCG tablet(Started 12/21/2023) Take 1 (one) tablet by mouth once daily * clotrimazole (Lotrimin AF) 1 % cream(Started 04/25/2024) Apply to affected area as directed * Farxiga 5 MG tablet(Started 03/16/2024) Take 1 (one) tablet by mouth once daily * amitriptyline (Elavil) 10 MG tablet Take 1 (one) tablet by mouth at bedtime Active Problems Problem Noted Date Diagnosed Date Generalized osteoarthritis o f multiple sites (finger DIP joints, basilar thumb and IP joints, knees) 09/08/2023 Immunizations * INFLUENZA VACCINE, TRIV. (AFLURIA, FLUZONE TRIVALENT; 6MO+) (IIV3)(Given 02/06/2014) * COVID MODERNA 12+ yr 50mcg/0.5mL(Given 03/11/2024) * Covid Moderna primary monovalent 12+ yr 0.5mL(Given 09/26/2021, 03/28/2021, 07/10/2020, 06/12/2020) * FLU VACCINE TRI IIV3 SPLIT IM (FLUVIRIN)(Given 01/06/2018) * INFLUENZA VACCINE, HIGH-DOSE, QUADR. (FLUZONE HIGH-DOSE QUADRIVALENT; 65Y+), 0.7 ML (HD-IIV4)(Given 02/04/2022) * INFLUENZA VACCINE, HIGH-DOSE, TRIV. (FLUZONE HIGH-DOSE TRIVALENT; 65Y+) (HD-IIV3)(Given 02/28/2024) * INFLUENZA VACCINE, QUADR. (FLUZONE; FLULAVAL; FLUARIX; AFLURIA QUADRIVALENT; 6MO+), 0.5 ML (IIV4)(Given 03/28/2021, 01/23/2019) * PNEUMOCOCCAL PCV20 CONJ VAC IM(Given 07/09/2021) * PNEUMOCOCCAL PPV VACCINE(Given 11/17/2019) * Pneumococcal Pcv13 Conj(Given 05/15/2020) * Zoster Hzv Vacc Recombinant Inj Im(Given 10/18/2020) Social History Tobacco Use Types Packs/Day Years [...] Comments Blood Pressure 148/86 05/29/2024 9:49 AM EVENT MARKETING INTERN Pulse 102 05/29/2024 9:49 AM EVENT MARKETING INTERN Temperature - - Respiratory Rate - - Oxygen Saturation - - Inhaled Oxygen Concentration - - Weight 91.8 kg (202 lb 6.4 oz) 05/29/2024 9:49 A M EVENT MARKETING INTERN Height 149.9 cm (4' 11 ) 05/29/2024 9:49 AM EVENT MARKETING INTERN Body Mass Index 40.88 05/29/2024 9:49 AM EVENT MARKETING INTERN Procedures * LA LARYNGOSCOPY,FLEX FIBER,DIAGNOSTIC(Performed 02/14/2024) Performed for Dysphonia Results * LA LARYNGOSCOPY,FLEX FIBER,DIAGNOSTIC (02/14/2024 10:33 AM CDT) Narrative Kvng Vasquez MD - 02/14/2024 10:33 AM CDT Kvng Vasquez MD 02/14/2024 11:31 AM Procedure Note Endoscopy Type: Laryngoscopy without stroboscopy Endoscope: Flexible 4mm Scope Anesthesia: Lidocaine 2% and Neosynephrine 1/2% (nasal) Procedure Details: The patient was sitting upright in a chair with the head in a slightly anterior sniffing position. The topical anesthesia was administered and then adequate time was allowed for an anesthetic effect. The endoscope was passed thru the bilateral nasal cavities. The tip of the endoscope was positioned in the oropharynx which allowed a complete view of the base of tongue, vallecula, pyriform recesses, epiglottis, bilateral true and false vocal folds, the interarytenoid and post cricoid region, and the immediate subglottis. 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 Left ethmoid sinuses patent Mucus membranes moist. Adenoidectomy scar The tongue base was normal. The true vocal cords were visualized and mobile bilaterally. There is some thicker mucus stranding between TVF. Patent subglottis There were no masses or mucosal lesions in the hypopharynx Condition: Stable. Patient tolerated procedure well. Complications: None Dr. Lux was present for and participated in critical portions of the entirety of the procedure. Marshall Lux MD PROCEDURE/MINOR SURG ICAL ORDERABLES Care Teams Reception Centre Manager Relationship Specialty Start Date End Date Tara Arrieta MD [address] [place] [address] PCP - General Family Medicine 10/25/23
--- OUTSIDE RECORDS SUMMARY | 2024-06-09 14:01 | XMS_ITS ---
Author Organization [facility] Address [address] [place], [place] [id number] Care Team Providers Care Printer Apprentice Name Role Phone DENNYVaishnavi TERESA Unavailable [phone] Tara Arrieta Unavailable Unavailable Allergies No Known Allergies REASON FOR VISIT Patient presents for at-risk foot care . The patient has painful toenails that cause difficulty with ambulation and shoegear. The onset is gradual Medications Medication SIG (Take, Route, Frequency, Duration) Notes Start Date End Date Status Atenolol 25 MG 1 tablet Orally Once a day Active Levothyroxine Sodium 88 MCG 1 tablet in the morning on an empty stomach Orally Once a day Active Losartan Potassium-HCTZ 100-25 MG 1 tablet Orally Once a day Active metFORMIN HCl ER (MOD) 500 MG 1 tablet with evening meal Orally Once a day Active Atorvastatin Calcium 10 MG 1 tablet Oral ly Once a day Active Mucinex Active Chlor-Trimeton Activ e ZyrTEC 10 MG 1 tablet Orally Once a day Active Sucralfate 1 GM 1 tablet on an empty stomach Orally Twice a day Active Vitamin D2 Active Multivitamin Active Encounters Encounter Location Date Provider Diagnosis [facility] [address] [place], [place] [phone] 04/03/2024 TERESA LARSON Tinea unguium B35.1 ; Pain in right toe(s) M79.674 ; Pain in left toe(s) M79.675 and Atherosclerosis of [place] arteries of extremities with intermittent claudication, bilateral legs I70.213 Assessments Encounter Date Diagnosis (ICD Code) Assessment Notes Treatment Notes Treatment Clinical Notes Section Notes 04/03/2024 Tinea unguium (ICD-10 - B35.1) FUNGAL TOENAILS: Discussed various treatment options for fungal toenails including debridement, topical antifungals, oral antifungals, toenail avulsion, or toenail matrixectomy. NAIL DEBRIDEMENT: Nails 1-5 Bilateral were debrided extensively with nail nippers and emery board, reducing length and girth to pink healthy tissue with any subungual debris and necrotic tissue removed 04/03/2024 Pain in right toe(s) (ICD-10 - M79.674) 04/03/2024 Pain in left toe(s) (ICD-10 - M79.675) 04/03/2024 Atherosclerosis of [place] arteries of extremities with intermittent claudication, bilateral legs (ICD-10 - I70.213) Plan Of Treatment Treatment Notes Assessment Notes [...] problems arise Provider Name:TERESA LARSON, 02:20:00 PM, [address], [address], [id number], Progress Notes * PINKY ZAPATA MDOB: (68 yo F)Acc No.[id number]:04/03/2024 Patient: Ashu PINKY CHO Provider: Roula Larson DPM :1955 A ge:68 Y S ex:Female Date:04/03/2024 Address[facility] Subjective: * Chief Complaints: * P atient presents for at-risk foot care . The patient has painful toenails that cause difficulty with ambulation and shoegear. The onset is gradual * HPI: H PI: General care P richard presents to the office for at risk foot care. Patient states that their nails are thickened, elongated and painful. Patient states that it is aggravated by shoe gear. Onset is gradual. Patient denies being diabetic., Patient denies taking blood thinners., Date last seen by Dr. Arrieta was January 2024., Initials LB. sample. * ROS: G [...] difficulty speaking, dizziness. * Medical History: * Surgical History: * Hospitalization/Major Diagno stic Procedure: * Family History: F ather: PRN - [...] : Never used tobacco. * Medications: T akingMultivitamin ZyrTEC 10 MG Tablet Chewable 1 tablet Orally Once a day Chlor-Trimeton Mucinex Vitamin D2 Sucralfate 1 GM Tablet 1 tablet on an empty stomach Orally Twice a day Atorvastatin Calcium 10 MG Tablet 1 tablet Orally Once a day metFORMIN HCl ER (MOD) 500 MG Tablet Extended Release 24 Hour 1 tablet with evening meal Orally Once a day Losartan Potassium-HCTZ 100-25 MG Tablet 1 tablet Orally Once a day Levothyroxine Sodium 88 MCG Tablet 1 tablet in the morning on an empty stomach Orally Once a day Atenolol 25 MG Tablet 1 tablet Orally Once a day Medication List reviewed and reconciled with the patientTaking Multivitamin Taking ZyrTEC 10 MG Tablet Chewable 1 tablet Orally Once a day Taking Chlor-Trimeton Taking Mucinex Taking Vitamin D2 Taking Sucralfate 1 GM Tablet 1 tablet on an empty stomach Orally Twice a day Taking Atorvastatin Calcium 10 MG Tablet 1 tablet Orally Once a day Taking metFORMIN HCl ER (MOD) 500 MG Tablet Extended Release 24 Hour 1 tablet with evening meal Orally Once a day Taking Losartan Potassium-HCTZ 100-25 MG Tablet 1 tablet Orally Once a day Taking Levothyroxine Sodium 88 MCG Tablet 1 tablet in the morning on an empty stomach Orally Once a day Taking Atenolol 25 MG Tablet 1 tablet Orally Once a day Medication List reviewed and reconciled with the patient * Allergies: N .K.D.A.no[Allergies Verified] Objective: * Vitals: * Examination: C onstitutional: [...] extremities. ? Assessment: * Assessment: 1. T inea unguium - B35.1 (Primary) 2 . P ain in right toe(s) - M79.674? 3. P ain in left toe(s) - M79.675 4 . A therosclerosis of [place] arteries of extremities with intermittent claudication, bilateral legs - I70.213 Plan: * Treatment: * Procedure Codes: * Follow Up: 1 0-12 Weeks (Reason: At Risk Foot care, sooner if problems arise) * Billing Information: * Visit Code: 44567 Office Visit, Est Pt., Level 3. * Procedure Codes: * SHAVER Sign off status: Completed true * Provider: Roula Larson DPM Date: 06/04/2023 Generated for Nupur swift/Dmitriy/eTransmitting on: 0 06/09/2024 02:00 PM BIT SHAVER History and Physical Notes * HPI (History [...] Date last seen by Dr. Arrieta was January 2024., Initials LB sample Examination Category Sub-Category [...]
--- OUTSIDE RECORDS SUMMARY | 2024-06-09 14:01 | XMS_ITS ---
Author Organization [facility] Address [address] [place], [place] [id number] Care Team Providers Care Payroll Services Analyst Name Role Phone MARSHA TERESA Unavailable [phone] Tara Arrieta Unavailable Unavailable Allergies No Known [...] empty stomach Orally Once a day Active Atorvastatin Calcium 10 MG 1 tablet Oral ly Once a day Active Losartan Potassium-HCTZ 100-25 MG 1 tablet Orally Once a day Active metFORMIN HCl ER (MOD) 500 MG 1 tablet with evening meal Orally Once a day Active Sucralfate 1 GM 1 tablet on an empty stomach Orally Twice a day Active Chlor-Trimeton Activ e ZyrTEC 10 MG 1 tablet Orally Once a day Active Vitamin D2 Active Mucinex Active Multivitamin Active Encounters Encounter Location Date Provider Diagnosis [facility] [address] [place], [place] [id number] 01/24/2024 TERESA LARSON Tinea unguium B35.1 ; Pain in right toe(s) M79.674 ; Pain in left toe(s) M79.675 and Atherosclerosis of pra[place] band arteries of extremities with intermittent claudication, bilateral legs I70.213 Assessments Encounter Date Diagnosis (ICD Code) Assessment Notes Treatment Notes Treatment Clinical Notes Section Notes 01/24/2024 Tinea unguium (ICD-10 - B35.1) FUNGAL TOENAILS: Discussed various treatment options for fungal toenails including debridement, topical antifungals, oral antifungals, toenail avulsion, or toenail matrixectomy. NAIL DEBRIDEMENT: Nails 1-5 Bilateral were debrided extensively with nail nippers and emery board, reducing length and girth to pink healthy tissue with any subungual debris and necrotic tissue removed 01/24/2024 Pain in right toe(s) (ICD-10 - M79.674) 01/24/2024 Pain in left toe(s) (ICD-10 - M79.675) 01/24/2024 Atherosclerosis of [place] band arteries of extremities with intermittent claudication, bilateral [...] Name:TERESA LARSON, 02:20:00 PM, [address], [address], [id number], Progress Notes * PINKY ZAPATA MDOB: (68 yo F)Acc No.[id number]:01/24/2024 Patient: Ashu PINKY CHO Provider: Roula Larson DPM :1955 A ge:68 Y S ex:Female Date:01/24/2024 [facility] Subjective: * Chief Complaints: * P atient [...] Patient denies being diabetic., Patient denies taking prescription blood thinners but does take a daily aspirin., Date last seen by Dr. Arrieta was November 2023., Initials LB. sample. * ROS: G eneral [...] - M79.675 4 . A therosclerosis of prairie band arteries of extremities with intermittent claudication, bilateral legs - I70.213 Plan: * Treatment: * Procedure Codes: * Follow Up: 1 0-12 Weeks (Reason: At Risk Foot care, sooner if problems arise) * Billing Information: * Visit Code: 02797 Office Visit, Est Pt., Level 3. * Procedure Codes: * NISTRATIVE SERVICES DIRECTOR Sign off status: Completed true * Provider: Roula Larson DPM Date: Generated for Leightoni jeniffer/Dmitriy/eTriversmitting on: 0 06/09/2024 02:00 PM ADMINISTRATIVE SERVICES DIRECTOR History and Physical Notes * HPI (History of Present Illness) Category Sub-Category Detail Notes Category Not es HPI General care Patient presents to the office for at risk foot care. Patient states that their nails are thickened, elongated and painful. Patient states that it is aggravated by shoe gear. Onset is gradual. Patient denies being diabetic., Patient denies taking prescription blood thinners but does take a daily aspirin., Date last seen by Dr. Arrieta was November 2023., Initials LB sample Examination Category Sub-Category Detail [...]
--- OUTSIDE RECORDS SUMMARY | 2024-06-09 14:01 | XMS_ITS | Patient Health Record ---
Author Organization [facility] Address [address] [place], [place] [id number] Care Team Providers Care Spray Machine Tender Name Role Phone TERESA LARSON Unavailable [phone] Tara Arrieta Unavailable Unavailable Allergies No Known Allergies Reason For Referral No Information Medications Medication SIG (Take, Route, Frequency, Duration) Notes Start Date End Date Status Atorvastatin Calcium 10 MG 1 tablet Oral ly Once a day Active Vitamin D2 Active Sucralfate 1 GM 1 tablet on an empty stomach Orally Twice a day Active Chlor-Trimeton Activ e Mucinex Active Multivitamin Active ZyrTEC 10 MG 1 tablet Orally Once a day Active Levothyroxine Sodium 88 MCG 1 tablet in the morning on an empty stomach Orally Once a day Active Atenolol 25 MG 1 tablet Orally Once a day Active metFORMIN HCl ER (MOD) 500 MG 1 tablet with evening meal Orally Once a day Active Losartan Potassium-HCTZ 100-25 MG 1 tablet Orally Once a day Active Problems Problem Type SNOMED Code ICD Code Onset Dates Problem Status W/U Status Risk Notes Problem Eruption of skin (410335879) Rash and other nonspecific skin eruption (R21) 07/01/2012 Active confirmed Vital Signs Height-cm 152.40 cm 08/02/2023 Weight-kg 107.5 kg 08/02/2023 Height 60.00 in 08/02/2023 Weight 237 lbs 08/02/2023 BMI 46.28 kg/m2 08/02/2023 Encounters Encounter Location Date Provider Diagnosis [facility] [address] [place], [place] [id number] 06/05/2024 TERESA SNOOK Tinea unguium B35.1 [facility] [address] [place] [id number] 08/02/2023 TERESA SNOOK Tinea unguium B35.1 ; Acquired keratosis [keratoderma] palmaris et plantaris L85.1 ; Type 2 diabetes mellitus with other circulatory complications E11.59 ; Atherosclerosis of [place] arteries of extremities with intermittent claudication, bilateral legs I70.213 ; Pain in right foot M79.671 ; Pain in left foot M79.672 and Lymphedema, not elsewhere classified I89.0 [facility] [address] [address] [place] [id number] 10/18/2023 TERESA SNOOK Tinea unguium B35.1 ; Type 2 diabetes mellitus with other circulatory complications E11.59 ; Atherosclerosis of [place] arteries of extremities with intermittent claudication, bilateral legs I70.213 ; Pain in right foot M79.671 and Pain in left foot M79.672 [facility] [address] [address] [place] [id number] 01/24/2024 TERESA SNOOK Tinea unguium B35.1 ; Pain in right toe(s) M79.674 ; Pain in left toe(s) M79.675 and Atherosclerosis of [place] arteries of extremities with intermittent claudication, bilateral legs I70.213 [facility] [address] [address] [place] [id number] 04/03/2024 TERESA SNOOK Tinea unguium B35.1 ; Pain in right toe(s) M79.674 ; Pain in left toe(s) M79.675 and Atherosclerosis of [place] arteries of extremities with intermittent claudication, bilateral legs I70.213 [facility] [address] [place] [id number] 10/16/2023 Assessments Encounter Date Diagnosis (ICD Code) Assessment Notes Treatment Notes Treatment Clinical Notes Section Notes 08/02/2023 Tinea unguium (ICD-10 - B35.1) Nails 1-5 Bilateral were debrided extensively with nail nippers and emery board, reducing length and girth to pink healthy tissue with any subungual debris and necrotic tissue removed 10/18/2023 Tinea unguium (ICD-10 - B35.1) Nails 1-5 Bilateral were debrided extensively with nail nippers and emery board, reducing length and girth to pink healthy tissue with any subungual debris and necrotic tissue removed 08/02/2023 Acquired keratosis [keratoderma] palmaris et plantaris (ICD-10 - L85.1) A total of 2 corns or calluses, as described in the note above, were cut and pared utilizing a #15 blade 01/24/2024 Tinea unguium (ICD-10 - B35.1) FUNGAL [...] in right toe(s) (ICD-10 - M79.674) 04/03/2024 Tinea unguium (ICD-10 - B35.1) FUNGAL [...] Pain in right toe(s) (ICD-10 - M79.674) 06/05/2024 Tinea unguium (ICD-10 - B35.1) FUNGAL TOENAILS: Discussed various treatment options for fungal toenails including debridement, topical antifungals, oral antifungals, toenail avulsion, or toenail matrixectomy. NAIL DEBRIDEMENT: Nails 1-5 Bilateral were debrided extensively with nail nippers and emery board, reducing length and girth to pink healthy tissue with any subungual debris and necrotic tissue removed 04/03/2024 Pain in left toe(s) (ICD-10 - M79.675) 01/24/2024 Pain in left toe(s) (ICD-10 - M79.675) 10/18/2023 Type 2 diabetes mellitus with other circulatory complications (ICD-10 - E11.59) 08/02/2023 Type 2 diabetes mellitus with other circulatory complications (ICD-10 - E11.59) 08/02/2023 Atherosclerosis of [place] arteries of extremities with intermittent claudication, bilateral legs (ICD-10 - I70.213) 10/18/2023 Atherosclerosis of [place] arteries of extremities with intermittent claudication, bilateral legs (ICD-10 - I70.213) 01/24/2024 Atherosclerosis of [place] arteries of extremities with intermittent claudication, bilateral legs (ICD-10 - I70.213) 04/03/2024 Atherosclerosis of [place] arteries of extremities with intermittent claudication, bilateral legs (ICD-10 - I70.213) 08/02/2023 Pain in right foot (ICD-10 - M79.671) 10/18/2023 Pain in right foot (ICD-10 - M79.671) 10/18/2023 Pain in left foot (ICD-10 - M79.672) 08/02/2023 Pain in left foot (ICD-10 - M79.672) 08/02/2023 Lymphedema, not elsewhere classified (ICD-10 - I89.0) Edema Recommendations: Advised patient on edema treatment recommendations. Recommendation for periodic elevation of feet and lower legs through the day. Recommend support compression hose. Recommend dietary restrictions salt intake. Followup with family physician for potential diuretic management if needed. Tubigrip: Tubigrip compression applied for support, compression and edema control. Plan Of Treatment Next Appt Details Provider Name:TERESA LARSON, 02:20:00 PM, [address], [place], [place], [id number], Insurance Providers Payer Name Payer Address Payer Phone Subscriber Number Group Number Insured Name Patient Relationship to Insured Coverage Start Date Coverage End Date [facility] MedicareCo mplete ([employer]) [address] [place], [place] [id number] PINKY ZAPATA Self - patient is the insured
--- OUTSIDE RECORDS SUMMARY | 2024-06-09 14:01 | XMS_ITS | Referral Summary ---
Author Organization [facility] Address [address] [place] [address] Care Team Providers Care Alternative Energy Technician Name Role Phone Tara Arrieta MD Primary Care Provider [phone] Encounters Date Type Department Care Team Description 03/15/2024 Telephone [facility] Cardiology [address] [place] [address] Damian Hatch MD from Last 3 Months Allergies No known active allergies Medications folic acid (FOLVITE) 1 mg tablet TAKE ONE TABLET BY MOUTH ONCE DAILY 30 3 3 Active losartan (COZAAR) 25 mg tablet take 1 tablet by oral route every day 0 0 6 Active metFORMIN XR (GLUCOPHAGE XR) 500 mg 24 hr tablet take 1 tablet by oral route every day with the evening meal 0 0 4 Active levothyroxine (SYNTHROID) 150 mcg tablet take 1 tablet by oral route every day 0 0 4 Active spironolactone (ALDACTONE) 25 mg tablet take 1 tablet by oral route every day 0 0 4 Active Additional Information Patient not taking.Reported on 02/28/2024 atorvastatin (LIPITOR) 20 mg tabletIndicatio ns:Hypercholest eremia TAKE 1 TABLET BY MOUTH EVERY DAY 90 tablet 2 Active omeprazole (PriLOSEC) 20 mg capsule Take by mouth daily 2 Active atenoloL (TENORMIN) 25 mg tablet Take 1 tablet (25 mg total) by mouth daily 2 Active cholecalciferol (VITAMIN D-3) 50,000 unit capsule Take 1 capsule (50,000 Units total) by mouth once a week Active Active Problems Problem Noted Date Diagnosed Date Palpitations 02/28/2024 Severe obesity 02/28/2024 Body mass index 40.0-44.9, adult ([facility]) 02/27 Hypertension 12/26/2018 Overview (12/26/2018): Hypertension Other chest pain 10/17/2018 Hypercholesteremia 10/17/2018 Psoriasis 06/14/2017 Psoriasis with arthropathy 05/05/2013 Overview (07/24/2016): Psoriatic arthritis Drug indicated 05/05/2013 Overview (07/24/2016): High risk medication use Immunizations Immunization Administration Dates Next Due Influenza, Trivalent, IM (MDV) 02/06/2014 Social History Tobacco Use Types Packs/Day Years Used Date Smoking Tobacco: Never Smokeless Tobacco: Never Alcohol Use Standard Drinks/Week Comments Yes 0 (1 standard drink = 0.6 oz pur e alcohol) 1-2 drinks monthly Comments Unknown Sex and Gender Information Value Date Recorded Sex Assigned at Not on file Legal Sex Female 12:20 PM AUTOMOTIVE WORKER Gender Identity Female 04/01/2023 11:37 AM AUTOMOTIVE WORKER Sexual Orientation Straight 04/01/2023 11 :37 AM AUTOMOTIVE WORKER Last Filed Vital Signs Vital Sign Reading Time Taken Comments Blood Pressure 132/72 02/28/2024 10:13 AM AUTOMOTIVE WORKER Pulse 93 02/28/2024 10:13 AM AUTOMOTIVE WORKER Temperature 36.7 C (98 F) 06/14/2017 12:56 PM AUTOMOTIVE WORKER Respiratory Rate 16 06/14/2017 12:56 PM AUTOMOTIVE WORKER Oxygen Saturation 95% 02/28/2024 10:13 AM AUTOMOTIVE WORKER Inhaled Oxygen Concentration - - Weight 94.8 kg (209 lb) 02/28/2024 10:13 AM AUTOMOTIVE WORKER Height 152.4 cm (5') 02/28/2024 10:13 AM AUTOMOTIVE WORKER Body Mass Index 40.82 02/28/2024 10:13 AM AUTOMOTIVE WORKER Plan of Treatment Not on file Procedures Procedure Name Priority Date/Time Associated Diagnosis Comments MCT - MOBILE CARDIAC TELEMETRY EVENT MONITOR Routine 03/14/2024 7:50 AM AUTOMOTIVE WORKER Palpitations from Last 3 Months Results * MCT Mobile Cardiac Telemetry Event Monitor (03/14/2024 7:50 AM AUTOMOTIVE WORKER) Anatomical Region Laterality Modality Electrocardiogra phy Narrative 03/14/2024 7:50 AM AUTOMOTIVE WORKER AMBULATORY CONSUMER RELATIONS SPECIALIST REPORT Patient Name: Radha Castaneda Date of : 1955 Requesting Physician: Dr. Hatch Date of interpretation: 03/14/24 Type of monitor : 7 day quality assurance monitor final Date of the study/Enrollment period: 03/01/2024 through 02/1920 Indication: Palpitations Quality of the study: Good Interpretation: A total of 6 days 7 hours and 4 minutes was recorded and analyzed Underlying sinus rhythm heart rate variability between 66 and 168 beats per minute with an average heart rate of 94 beats per minute. No premature atrial contractions were seen. Low frequency ventricular ectopy totaling 2632 beats which is less than 1% ectopic burden. No atrial fibrillation, SVT, pauses, heart block or ventricular tachycardia. Three patient triggered events including symptom other than listed , and heart racing. The episodes of heart racing correlated to sinus tachycardia and on 1 occasion PVCs Conclusions: Underlying sinus rhythm/sinus tachycardia with average heart rate of 94 beats per minute Low-frequency ventricular ectopy in isolated form Symptom events of heart racing correlated sinus tachycardia and PVCs Voice recognition software was used to complete this document, therefore, mobile home installer variances may occur. Matthew Bowser MD, [facility] 03/14/24 Procedure Note Matthew Bowser MD - 03/14/2024 AMBULATORY CONSUMER RELATIONS SPECIALIST REPORT Patient Name: Radha Castaneda Date of : 1955 Requesting Physician: Dr. Hatch Date of interpretation: 03/14/24 Type of monitor : 7 day quality assurance monitor final Date of the study/Enrollment period: 03/01/2024 through 02/1920 Indication: Palpitations Quality of the study: Good Interpretation: A total of 6 days 7 hours and 4 minutes was recorded andanalyzed Underlying sinus rhythm heart rate variability between 66 and 168 beatsper minute with an average heart rate of 94 beats per minute. No premature atrial contractions were seen. Low frequency ventricular ectopy totaling 2632 beats which is less than 1%ectopic burden. No atrial fibrillation, SVT, pauses, heart block or ventriculartachycardia. Three patient triggered events including symptom other than listed , andheart racing. The episodes of heart racing correlated to sinustachycardia and on 1 occasion PVCs Conclusions: Underlying sinus rhythm/sinus tachycardia with average heart rate of 94beats per minute Low-frequency ventricular ectopy in isolated form Symptom events of heart racing correlated sinus tachycardia and PVCs Voice recognition software was used to complete this document, therefore,mobile home installer variances may occur. Matthew Bowser MD, [facility] 03/14/24 Damian Hatch MD [facility] CARDIAC SERVICES PROCEDURES Final Result from Last 3 Months Insurance MEDICARE MEDICARE SOLUTIONS MEDICARE SOLUTIONS Care Teams Alternative Energy Technician Relationship Specialty Start Date End Date Tara Arrieta MD PCP - General 03/24/13
--- OUTSIDE RECORDS SUMMARY | 2024-06-09 14:01 | XMS_ITS | Clinical Summary ---
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 Overview (07/24/2016): Psoriatic arthritis Drug indicated 05/05/2013 Overview (07/24/2016): High risk medication use Encounters Date Type Department Care Team Description 03/15/2024 Telephone [facility] Cardiology [address] [place] [address] Damian Hatch MD from Last 3 Months Immunizations Immunization Administration Dates Next Due Influenza, Trivalent, IM (MDV) 02/06/2014 Surgical History Surgery Date Site/Laterality Comments CHOLECYSTECTOMY 1989 Cholecystectomy THYROIDECTOMY 1974 Thyroidectomy HYSTERECTOMY 1989 Hysterectomy Medical History Medical History Date Comments Hx Other Medical 1972 Lumpectomy Hx Other Medical 1972 reconstructive hand surgery Hx Other Medical chronic fatigue Hx Other Medical stomach ulcers Hx Other Medical chronic bronchi tis Pneumonia pneumonia Hx Other Medical sinus problems Hypothyroidism hypothyroidism Psoriasis psoriasis Rosacea rosacea Hypertension Hypertension Anemia Anemia Diabetes mellitus (HCC) Diabetes Asthma Asthma Hyperlipidemia Hyperlipidemia Type 2 diabetes mellitus (HCC) D iabetes type 2; Comments: DAYANA 12/01/2013 - Hx Other Medical breast surgery; Comments: DAYANA 12/01/2013 - Anemia Anemia; Comments : DAYANA 12/01/2013 - Hx Other Medical thyrodectomy Hx Other Medical hypothyroidism Hx Other Medical psoriasis Hx Other Medical psoriatic arthr itis Hx Other Medical bleeding peptic ulcer s/p surgery Hx Other Medical sleep apnea Hx Other Medical basal cell ca ( lesion pre-dated enbrel) Hx Other Medical basal cell ca Family History Medical History Relation Name Comments Diabetes Other 1 Family history of Diabetes mellitus; Anxiety disorder Other 2 Family hist ory of anxiety; Blood Clot Other 3 Family history of blood clots; Other Other 4 Family history of non hodgkins lymphoma; Other Other 5 Family history of arthritis - mother; Relation Name Status Comments Other 1 Other 2 Other 3 Other 4 Other 5 Social History Tobacco Use Types Packs/Day Years Used Date Smoking Tobacco: Never Smokeless Tobacco: Never Alcohol Use Standard Drinks/Week Comments Yes 0 (1 standard drink = 0.6 oz pur e alcohol) 1-2 drinks monthly Comments Unknown Sex and Gender Information Value Date Recorded Sex Assigned at Not on file Legal Sex Female 12:20 PM CAREER CENTER DIRECTOR Gender Identity Female 04/01/2023 11:37 AM CAREER CENTER DIRECTOR Sexual Orientation Straight 04/01/2023 11 :37 AM CAREER CENTER DIRECTOR Obstetrics History Last Filed Vital Signs Vital Sign Reading Time Taken Comments Blood Pressure 132/72 02/28/2024 10:13 AM CAREER CENTER DIRECTOR Pulse 93 02/28/2024 10:13 AM CAREER CENTER DIRECTOR Temperature 36.7 C (98 F) 06/14/2017 12:56 PM CAREER CENTER DIRECTOR Respiratory Rate 16 06/14/2017 12:56 PM CAREER CENTER DIRECTOR Oxygen Saturation 95% 02/28/2024 10:13 AM CAREER CENTER DIRECTOR Inhaled Oxygen Concentration - - Weight 94.8 kg (209 lb) 02/28/2024 10:13 AM CAREER CENTER DIRECTOR Height 152.4 cm (5') 02/28/2024 10:13 AM CAREER CENTER DIRECTOR Body Mass Index 40.82 02/28/2024 10:13 AM CAREER CENTER DIRECTOR Plan of Treatment Health Maintenance Due Date Last Done Comments Breast Cancer Screening-Mammogram 1955 Colon Cancer Screening-Colonoscopy 1955 Depression Screening 1955 Fall Risk Assessment 1955 Hepatitis C Screening 1955 Osteoporosis Screening-Bone Density Scan 1955 DTaP/Tdap/Td Vaccine (1 - Tdap) 1965 Hepatitis B Screening 1972 Well Visit 65+ 12/13/2019 Zoster Vaccine (2 of 2) 12/13/2020 10/18/2020 Covid-19 Vaccine (5 - 2023-2 5 season) 2023 09/26/2021, 03/28/2021, 07/10/2020, Additional history exists Influenza Vaccine (#1) 2023 , 01/23/2019, 01/06/2018, Additional history exists Pneumococcal vaccine 65+ (3 of 3 - PCV20 or PCV21) 05/15/2025 05/15/2020, 11/17/2019 Procedures Procedure Name Priority Date/Time Associated Diagnosis Comments MCT - MOBILE CARDIAC TELEMETRY EVENT MONITOR Routine 03/14/2024 7:50 AM CAREER CENTER DIRECTOR Palpitations from Last 3 Months Results * MCT Mobile Cardiac Telemetry Event Monitor (03/14/2024 7:50 AM CAREER CENTER DIRECTOR) Anatomical Region Laterality Modality Electrocardiogra phy Narrative 03/14/2024 7:50 AM CAREER CENTER DIRECTOR AMBULATORY METEOROLOGY PROFESSOR REPORT Patient Name: Radha Castaneda Date of : 1955 Requesting Physician: Dr. Hatch Date of interpretation: 03/14/24 Type of monitor : 7 day monitor car operator Date of the study/Enrollment period: 03/01/2024 through [...] was used to complete this document, therefore, gas main fitter variances may occur. Matthew Bowser MD, [facility] 03/14/24 Procedure Note Matthew Bowser MD - 03/14/2024 AMBULATORY METEOROLOGY PROFESSOR REPORT Patient Name: Radha Castaneda Date of : 1955 Requesting Physician: Dr. Hatch Date of interpretation: 03/14/24 Type of monitor : 7 day monitor car operator Date of the study/Enrollment period: 03/01/2024 through [...] software was used to complete this document, therefore,gas main fitter variances may occur. Matthew Bowser MD, [facility] 03/14/24 Damian Hatch MD [facility] CARDIAC SERVICES PROCEDURES Final Result from Last 3 Months Insurance MEDICARE MEDICARE SOLUTIONS MEDICARE SOLUTIONS Care Teams Strap Cutting Machine Operator Relationship Specialty Start Date End Date Tara Arrieta MD PCP - General 03/24/13
[2024-06-09 16:20] LABS: Add Urine Microscopic? YES; Appearance Urine Clear (Clear); Bacteria Urine None Seen /hpf; Bilirubin Urine Negative (Negative); Blood Urine Negative (Negative); Color Urine Yellow (Yellow); Glucose Urine UA 3+ mg/dL (Negative); Ketones Urine Negative (Negative); Leukocyte Esterase Ur 1+ LEU/UL (Negative); Need Manual Microscopic Reviewed; Nitrate Urine Negative (Negative); Non Pathogenic Casts 0-2; Protein Urine Negative (Negative); RBC Urine 0-2 /hpf (0-2); Specific Grav Ur 1.022 (1.001-1.035); Squamous Epithelial Cell Urine None Seen /hpf (Few); Urobilinogen Urine 0.2 mg/dL (<2.0); WBC Urine 0-5 /hpf (0-3)
== END 2024-06-09 13:58 | disposition home or self-care (01) ==
PROVIDERS: PCP Family Medicine; Visit Provider Family Medicine
DX: R35.0 Frequency of micturition (principal); N18.30 Chronic kidney disease, stage 3 unspecified
CPT/HCPCS: 81001; 87086

== ENCOUNTER 2024-07-03 12:17 | Outpatient (CLI) | payer MEDICARE, SELFPAY ==
[2024-07-03 13:00] LABS: Alanine Aminotransferase 22 U/L (6-35); Albumin Level 4.6 g/dL (3.5-5.1); Alkaline Phosphatase 86 U/L (38-126); Anion Gap 10 mmol/L (4-12); Aspartate Amino Transferase 28 U/L (14-36); Bilirubin,Total 0.5 mg/dL (0.2-1.3); Blood Urea Nitrogen 11 mg/dL (7-17); Calcium 9.1 mg/dL (8.4-10.2); Carbon Dioxide 29 mmol/L (22-30); Chloride 100 mmol/L (98-107); Cholesterol 127 mg/dL (0-200); Estimated Glomerular Filt Rate > 60; Glucose 136 mg/dL (65-110); HDL Direct 51 mg/dL; Potassium 4.2 mmol/L (3.4-5.0); Sodium 139 mmol/L (137-145); Triglycerides 86 mg/dL (<150)
[2024-07-03 13:11] LABS: LDL Cholesterol Direct 55 mg/dL
[2024-07-03 13:30] LABS: Creatinine Urine 62.3 mg/dL
[2024-07-03 13:35] LABS: Microalbumin Urine Random 126.5 mg/L (0-16.7)
--- OUTSIDE RECORDS SUMMARY | 2024-07-03 14:38 | XMS_ITS | Patient Health Record ---
Author Organization [facility] [place] Address [address] [place], [place] [id number] Care Team Providers Care Quality Assurance Monitor Chassis Name Role Phone TERESA LARSON Unavailable [phone] Tara Arrieta Unavailable Unavailable Allergies No Known [...] Status Risk Notes Problem Eruption of skin (291647968) Rash and other nonspecific skin eruption (R21) 07/01/2012 Active confirmed Vital Signs Height-cm 152.40 cm 08/02/2023 Weight-kg 107.5 kg 08/02/2023 Height 60.00 in 08/02/2023 Weight 237 lbs 08/02/2023 BMI 46.28 kg/m2 08/02/2023 Encounters Encounter Location Date Provider Diagnosis [facility] [place] [address] [place], [place] [id number] 08/02/2023 TERESA SNOOK Tinea unguium B35.1 ; Acquired keratosis [keratoderma] palmaris et plantaris L85.1 ; Type 2 diabetes mellitus with other circulatory complications E11.59 ; Atherosclerosis of hughes arteries of extremities with intermittent claudication, bilateral legs I70.213 ; Pain in right foot M79.671 ; Pain in left foot M79.672 and Lymphedema, not elsewhere classified I89.0 [facility] [address] [place] [id number] 10/18/2023 TERESA SNOOK Tinea unguium B35.1 ; Type 2 diabetes mellitus with other circulatory complications E11.59 ; Atherosclerosis of hughes arteries of extremities with intermittent claudication, bilateral legs I70.213 ; Pain in right foot M79.671 and Pain in left foot M79.672 [facility] [place] [address] [place] [id number] 01/24/2024 TERESA SNOOK Tinea unguium B35.1 ; Pain in right toe(s) M79.674 ; Pain in left toe(s) M79.675 and Atherosclerosis of hughes arteries of extremities with intermittent claudication, bilateral legs I70.213 [facility] [address] [place] [id number] 04/03/2024 TERESA SNOOK Tinea unguium B35.1 ; Pain in right toe(s) M79.674 ; Pain in left toe(s) M79.675 and Atherosclerosis of hughes arteries of extremities with intermittent claudication, bilateral legs I70.213 [facility] [address] [place] [id number] 06/05/2024 TERESA SNOOK Tinea unguium B35.1 ; Pain in right toe(s) M79.674 ; Pain in left toe(s) M79.675 and Atherosclerosis of hughes arteries of extremities with intermittent claudication, bilateral legs I70.213 [facility] [address] [place] [id number] 10/16/2023 Assessments Encounter Date Diagnosis (ICD Code) [...] any subungual debris and necrotic tissue removed 06/05/2024 Pain in right toe(s) (ICD-10 - M79.674) 06/05/2024 Pain in left toe(s) (ICD-10 - M79.675) 04/03/2024 Pain in left toe(s) (ICD-10 - M79.675) 01/24/2024 Pain in left toe(s) (ICD-10 - M79.675) 10/18/2023 Type 2 diabetes mellitus with other circulatory complications (ICD-10 - E11.59) 08/02/2023 Type 2 diabetes mellitus with other circulatory complications (ICD-10 - E11.59) 08/02/2023 Atherosclerosis of hughes arteries of extremities with intermittent claudication, bilateral legs (ICD-10 - I70.213) 10/18/2023 Atherosclerosis of hughes arteries of extremities with intermittent claudication, bilateral legs (ICD-10 - I70.213) 01/24/2024 Atherosclerosis of hughes arteries of extremities with intermittent claudication, bilateral legs (ICD-10 - I70.213) 04/03/2024 Atherosclerosis of hughes arteries of extremities with intermittent claudication, bilateral legs (ICD-10 - I70.213) 06/05/2024 Atherosclerosis of hughes arteries of extremities with intermittent claudication, bilateral [...] Name:TERESA LARSON, 02:20:00 PM, [address], [address], [place], [phone], Insurance Providers Payer Name Payer Address Payer Phone Subscriber Number Group Number Insured Name Patient Relationship to Insured Coverage Start Date Coverage End Date AARP MedicareCo mplete ([facility]) [address] [place], [place] [id number] PINKY ZAPATA Self - patient is the insured
--- OUTSIDE RECORDS SUMMARY | 2024-07-03 14:38 | XMS_ITS ---
Author Organization [facility] Address [address] [place], [place] [phone] Care Team Providers Care Amalgamator Name Role Phone DENNYVaishnavi TERESA Unavailable [phone] Tara Arrieta Unavailable Unavailable Allergies No Known [...] Location Date Provider Diagnosis [facility] [place] [address] [place], [place] [phone] 06/05/2024 TERESA LARSON Tinea unguium B35.1 ; Pain in right toe(s) M79.674 ; Pain in left toe(s) M79.675 and Atherosclerosis of [place] arteries of extremities with intermittent claudication, bilateral [...] Pain in left toe(s) (ICD-10 - M79.675) 06/05/2024 Atherosclerosis of [place] arteries of extremities with intermittent claudication, bilateral [...] Name:TERESA LARSON, 02:20:00 PM, [address], [address], [id number], Progress Notes * PINKY ZAPATA MDOB: (68 yo F)Acc No.[id number]:06/05/2024 Patient: Ashu PINKY CHO Provider: Roula Larson DPM :1955 A ge:68 Y S ex:Female Date:06/05/2024 [id number] Subjective: * Chief Complaints: * P atient [...] - M79.675 4 . A therosclerosis of [place] arteries of extremities with intermittent claudication, bilateral legs - I70.213 Plan: * Treatment: * Procedure Codes: * Follow Up: 1 0-12 Weeks (Reason: At Risk Foot care, sooner if problems arise) * Billing Information: * Visit Code: 83950 Office Visit, Est Pt., Level 3. * Procedure Codes: * ER GRADER Sign off status: Completed true * Provider: Roula Larson DPM Date: 06/05/2024 Generated for Nupur swift/Dmitriy/eTransmitting on: 0 07/03/2024 02:37 PM CDT History and Physical Notes * HPI (History [...]
--- OUTSIDE RECORDS SUMMARY | 2024-07-03 14:38 | XMS_ITS | Clinical Summary ---
Author Organization [facility] Address [address] [place] [address] Care Team Providers Care Assembler Watch Train Name Role Phone Tara Arrieta MD Primary Care Provider [phone] Allergies No known active allergies Medications folic [...] obesity 02/28/2024 Body mass index 40.0-44.9, adult ([facility]) 02/27 Hypertension 12/26/2018 Overview [...] Medical History Date Comments Hx Other Medical 1971 Lumpectomy Hx Other Medical 1972 reconstructive hand [...] on file Legal Sex Female 12:20 PM HEALTH INFORMATION TECH Gender Identity Female 04/01/2023 11:37 AM HEALTH INFORMATION TECH Sexual Orientation Straight 04/01/2023 11 :37 AM HEALTH INFORMATION TECH Obstetrics History Last Filed Vital Signs Vital Sign Reading Time Taken Comments Blood Pressure 132/72 02/28/2024 10:13 AM HEALTH INFORMATION TECH Pulse 93 02/28/2024 10:13 AM HEALTH INFORMATION TECH Temperature 36.7 C (98 F) 06/14/2017 12:56 PM HEALTH INFORMATION TECH Respiratory Rate 16 06/14/2017 12:56 PM HEALTH INFORMATION TECH Oxygen Saturation 95% 02/28/2024 10:13 AM HEALTH INFORMATION TECH Inhaled Oxygen Concentration - - Weight 94.8 kg (209 lb) 02/28/2024 10:13 AM HEALTH INFORMATION TECH Height 152.4 cm (5') 02/28/2024 10:13 AM HEALTH INFORMATION TECH Body Mass Index 40.82 02/28/2024 10:13 AM HEALTH INFORMATION TECH Plan of Treatment Health Maintenance Due Date [...] - PCV20 or PCV21) 05/15/2025 05/15/2020, 11/17/2019 Insurance MEDICARE MEDICARE SOLUTIONS MEDICARE SOLUTIONS Care Teams Assembler Watch Train Relationship Specialty Start Date End Date Tara Arrieta MD PCP - General 03/24/13
--- OUTSIDE RECORDS SUMMARY | 2024-07-03 14:38 | XMS_ITS ---
Author Organization [facility] Address [address] [place], [place] [address] Care Team Providers Care Tack Picker Name Role Phone MARSHA TERESA Unavailable [phone] Tara Arrieta Unavailable Unavailable Allergies No Known [...] Location Date Provider Diagnosis [facility] [address] [place], [place] [id number] 01/24/2024 TERESA LARSON Tinea unguium B35.1 ; Pain in right toe(s) M79.674 ; Pain in left toe(s) M79.675 and Atherosclerosis of j[place] arteries of extremities with intermittent claudication, bilateral [...] toe(s) (ICD-10 - M79.675) 01/24/2024 Atherosclerosis of jena arteries of extremities with intermittent claudication, bilateral [...] Name:TERESA LARSON, 02:20:00 PM, [address], [address], [id number], Progress Notes * PINKY ZAPATA MDOB: (68 yo F)Acc No.[id number]:01/24/2024 Patient: Ashu PINKY CHO Provider: Roula Larson DPM :1955 A ge:68 Y S ex:Female Date:01/24/2024 [id number] Subjective: * Chief Complaints: * P atient [...] - M79.675 4 . A therosclerosis of jena arteries of extremities with intermittent claudication, bilateral legs - I70.213 Plan: * Treatment: * Procedure Codes: * Follow Up: 1 0-12 Weeks (Reason: At Risk Foot care, sooner if problems arise) * Billing Information: * Visit Code: 54526 Office Visit, Est Pt., Level 3. * Procedure Codes: * EDITATION MANAGER Sign off status: Completed true * Provider: Roula Larson DPM Date: 1 Generated for Nupur swift/Dmitriy/eTveniceitting on: 0 07/03/2024 02:38 PM CDT History and Physical Notes * [...]
--- OUTSIDE RECORDS SUMMARY | 2024-07-03 14:38 | XMS_ITS | Referral Summary ---
Author Organization [facility] Address [address] [place] [address] Care Team Providers Care Continuous Improvement Coach Name Role Phone Tara Arrieta MD Primary Care Provider [phone] Source Comments [facility],non-owned Affiliates and Associated Physician Practices is amultiple site organization consisting of ambulatory clinics and hospital sitesin [place], [place], [place] and [place]. This disclosure is being madepursuant to the Care Everywhere program and may not contain all information available regarding this patient. Last updated [facility] Vector[facility] Encounters Date Type Department Care Team Description 05/30/2024 Travel 05/29/2024 Travel 05/29/2024 10:00 AM EPIC INTERFACE ANALYST Office Visit [facility] - ENT [address] [place] [phone] Marshall Lux MD Chronic sinusitis, unspecified location [...] Active azelastine (Astelin) 0.1 % nasal spray Blanco 2 (two) sprays into each nostril as needed 01/07/2023 Active budesonide (Pulmicort) 0.25 MG/2ML nebulizer suspension Inhale 2 mL by mouth as directed 07/30/2023 Active cetirizine (ZyrTEC) 10 MG chew tablet Take 1 (one) tablet by mouth once daily Active Cholecalciferol 1.25 MG (38776 UT) Take 50,000 Units by mouth every 7 days Active fluticasone propionate (Flonase) 50 MCG/ACT nasal spray Blanco 2 (two) sprays into each nostril as [...] Active vitamin D, ergocalciferol, (Drisdol) 1.25 MG (53680 UT) capsule Take 1 (one) capsule by [...] Comments Blood Pressure 148/86 05/29/2024 9:49 AM EPIC INTERFACE ANALYST Pulse 102 05/29/2024 9:49 AM EPIC INTERFACE ANALYST Temperature - - Respiratory Rate - - Oxygen Saturation - - Inhaled Oxygen Concentration - - Weight 91.8 kg (202 lb 6.4 oz) 05/29/2024 9:49 A M EPIC INTERFACE ANALYST Height 149.9 cm (4' 11 ) 05/29/2024 9:49 AM EPIC INTERFACE ANALYST Body Mass Index 40.88 05/29/2024 9:49 AM EPIC INTERFACE ANALYST Plan of Treatment Upcoming Encounters Date Type Department Care Team (Late st Contact Info) Description 07/10/2024 8:00 AM CDT Appointment [facility] CAT SCAN [address] [place] [address] Marshall Lux MD [address] [facility] [address] [place] [address] 07/10/2024 8:45 AM CDT Office Visit [facility] - ENT [address] [place] [phone] Marshall Lux MD [address] [facility] [address] [place] [address] Care Teams Continuous Improvement Coach Relationship Specialty Start Date End Date Tara Arrieta MD [address] [place] [address] PCP - General Family Medicine 10/25/23
--- OUTSIDE RECORDS SUMMARY | 2024-07-03 14:38 | XMS_ITS | Patient Health Summary ---
Author Organization [facility] Address [address] [place] [address] Care Team Providers Care Manager Continuous Improvement Name Role Phone Tara Arrieta MD Primary Care Provider [phone] Note [address] [facility],non-owned Affiliates and Associated Physician Practices is amultiple site organization consisting of ambulatory clinics and hospital sitesin [place], [place], [place] and [place]. This disclosure is being madepursuant to the Care Everywhere program and may not contain all information available regarding this patient. Last updated 18.[facility] Allergies No known active allergies Medications * [...] azelastine (Astelin) 0.1 % nasal spray(Started 01/07/2023) [place] 2 (two) sprays into each nostril as needed * budesonide (Pulmicort) 0.25 MG/2ML nebulizer suspension(Started 07/30/2023) Inhale 2 mL by mouth as directed * cetirizine (ZyrTEC) 10 MG chew tablet Take 1 (one) tablet by mouth once daily * Cholecalciferol 1.25 MG (91861 UT) Take 50,000 Units by mouth every 7 days * fluticasone propionate (Flonase) 50 MCG/ACT nasal spray(Started 03/19/2023) [place] 2 (two) sprays into each nostril as [...] * vitamin D, ergocalciferol, (Drisdol) 1.25 MG (87607 UT) capsule(Started 11/22/2023) Take 1 (one) capsule [...] Comments Blood Pressure 148/86 05/29/2024 9:49 AM CORSET FITTER Pulse 102 05/29/2024 9:49 AM CORSET FITTER Temperature - - Respiratory Rate - - Oxygen Saturation - - Inhaled Oxygen Concentration - - Weight 91.8 kg (202 lb 6.4 oz) 05/29/2024 9:49 A M CORSET FITTER Height 149.9 cm (4' 11 ) 05/29/2024 9:49 AM CORSET FITTER Body Mass Index 40.88 05/29/2024 9:49 AM CORSET FITTER Procedures * VT LARYNGOSCOPY,FLEX FIBER,DIAGNOSTIC(Performed 02/14/2024) Performed for Dysphonia Results * VT LARYNGOSCOPY,FLEX FIBER,DIAGNOSTIC (02/14/2024 10:33 AM CDT) Narrative [...] MD PROCEDURE/MINOR SURG ICAL ORDERABLES Care Teams Manager Continuous Improvement Relationship Specialty Start Date End Date Tara Arrieta MD [address] [place] [address] PCP - General Family Medicine 10/25/23
--- OUTSIDE RECORDS SUMMARY | 2024-07-03 14:38 | XMS_ITS | Clinical Summary ---
Author Organization [facility] Address [address] [facility] [place] [address] Care Team Providers Care Supervisor Shed Workers Name Role Phone Tara Arrieta MD Primary Care Provider [phone] Source Comments [facility],non-owned Affiliates and Associated Physician Practices is amultiple site organization consisting of ambulatory clinics and hospital sitesin [place], [place], [place] and [place]. This disclosure is being madepursuant to the Care Everywhere program and may not contain all information available regarding this patient. Last updated 18.[facility] Allergies No known active allergies Medications * [...] Active azelastine (Astelin) 0.1 % nasal spray [place] 2 (two) sprays into each nostril as needed 01/07/2023 Active budesonide (Pulmicort) 0.25 MG/2ML nebulizer suspension Inhale 2 mL by mouth as directed 07/30/2023 Active cetirizine (ZyrTEC) 10 MG chew tablet Take 1 (one) tablet by mouth once daily Active Cholecalciferol 1.25 MG (88563 UT) Take 50,000 Units by mouth every 7 days Active fluticasone propionate (Flonase) 50 MCG/ACT nasal spray [place] 2 (two) sprays into each nostril as [...] Active vitamin D, ergocalciferol, (Drisdol) 1.25 MG (86188 UT) capsule Take 1 (one) capsule by [...] Team Description 05/30/2024 Travel 05/29/2024 10:00 AM AUTO BUMPER MECHANIC Office Visit [facility] [address] [place] [address] Marshall Lux MD Chronic sinusitis, unspecified location [...] Comments Blood Pressure 148/86 05/29/2024 9:49 AM AUTO BUMPER MECHANIC Pulse 102 05/29/2024 9:49 AM AUTO BUMPER MECHANIC Temperature - - Respiratory Rate - - Oxygen Saturation - - Inhaled Oxygen Concentration - - Weight 91.8 kg (202 lb 6.4 oz) 05/29/2024 9:49 A M AUTO BUMPER MECHANIC Height 149.9 cm (4' 11 ) 05/29/2024 9:49 AM AUTO BUMPER MECHANIC Body Mass Index 40.88 05/29/2024 9:49 AM AUTO BUMPER MECHANIC Plan of Treatment Upcoming Encounters Date Type Department Care Team (Late st Contact Info) Description 07/10/2024 8:00 AM CDT Appointment [facility] CAT SCAN [address] [place] [phone] [place] [address] [place] [address] [place] [address] 07/10/2024 8:45 AM CDT Office Visit [facility] [address] [place] [phone] Marshall Lux MD [address] [place] [address] Health Maintenance Due Date Last Done Comments [...] complete this topic MENINGOCOCCAL (Group B) VACCINE SHARED DECISION-MAKING Aged Out No longer eligible based on patient's age to complete this topic MENINGOCOCCAL GROUPS A/C/Y/W VACCINE Aged Out No longer eligible based on patient's age to complete this topic Care Teams Supervisor Shed Workers Relationship Specialty Start Date End Date Tara Arrieta MD [address] [place] [address] PCP - General Family Medicine 10/25/23
--- OUTSIDE RECORDS SUMMARY | 2024-07-03 14:38 | XMS_ITS | Referral Summary ---
Author Organization [facility] Address [address] [place] [address] Care Team Providers Care Die Fitter Name Role Phone Tara Arrieta MD Primary Care Provider [phone] Allergies No known active allergies Medications folic [...] obesity 02/28/2024 Body mass index 40.0-44.9, adult ([facility]) 02/27 Hypertension 12/26/2018 Overview (12/26/2018): [...] on file Legal Sex Female 12:20 PM SOLE TACKER Gender Identity Female 04/01/2023 11:37 AM SOLE TACKER Sexual Orientation Straight 04/01/2023 11 :37 AM SOLE TACKER Last Filed Vital Signs Vital Sign Reading Time Taken Comments Blood Pressure 132/72 02/28/2024 10:13 AM SOLE TACKER Pulse 93 02/28/2024 10:13 AM SOLE TACKER Temperature 36.7 C (98 F) 06/14/2017 12:56 PM SOLE TACKER Respiratory Rate 16 06/14/2017 12:56 PM SOLE TACKER Oxygen Saturation 95% 02/28/2024 10:13 AM SOLE TACKER Inhaled Oxygen Concentration - - Weight 94.8 kg (209 lb) 02/28/2024 10:13 AM SOLE TACKER Height 152.4 cm (5') 02/28/2024 10:13 AM SOLE TACKER Body Mass Index 40.82 02/28/2024 10:13 AM SOLE TACKER Plan of Treatment Not on file Insurance MEDICARE MEDICARE SOLUTIONS MEDICARE SOLUTIONS Care Teams Die Fitter Relationship Specialty Start Date End Date Tara Arrieta MD PCP - General 03/24/13
--- OUTSIDE RECORDS SUMMARY | 2024-07-03 14:39 | XMS_ITS ---
Author Organization [facility] Address [address] [place], [place] [address] Care Team Providers Care Beaming Machine Operator Name Role Phone DENNYVaishnavi TERESA Unavailable [phone] Tara Arrieta Unavailable Unavailable Allergies No Known [...] Location Date Provider Diagnosis [facility] [address] [place], [place] [phone] 04/03/2024 TERESA LARSON Tinea unguium B35.1 ; Pain in right toe(s) M79.674 ; Pain in left toe(s) M79.675 and Atherosclerosis of [place] arteries of extremities with intermittent claudication, bilateral [...] toe(s) (ICD-10 - M79.675) 04/03/2024 Atherosclerosis of [place] arteries of extremities with intermittent claudication, bilateral [...] Name:TERESA LARSON, 02:20:00 PM, [address], [address], [phone], Progress Notes * PINKY ZAPATA MDOB: (68 yo F)Acc No.[id number]:04/03/2024 Patient: Ashu PINKY CHO Provider: Roula Larson DPM :1955 A ge:68 Y S ex:Female Date:04/03/2024 [id number] Subjective: * Chief Complaints: * P atient [...] - M79.675 4 . A therosclerosis of [place] arteries of extremities with intermittent claudication, bilateral legs - I70.213 Plan: * Treatment: * Procedure Codes: * Follow Up: 1 0-12 Weeks (Reason: At Risk Foot care, sooner if problems arise) * Billing Information: * Visit Code: 81286 Office Visit, Est Pt., Level 3. * Procedure Codes: * ICATIONS PROJECT MANAGER Sign off status: Completed true * Provider: Roula Larson DPM Date: 06/04/2023 Generated for Nupur siwft/Dmitriy/eTransmitting on: 0 07/03/2024 02:38 PM CDT History [...]
[2024-07-03 19:10] LABS: Vitamin D 25 Hydroxy 68.9 ng/mL
== END 2024-07-03 12:18 | disposition home or self-care (01) ==
PROVIDERS: PCP Family Medicine; Referring Provider Internal Medicine Critical Care Medicine; Visit Provider Internal Medicine Endocrinology, Diabetes & Metabolism
DX: R05.3 Chronic cough (principal); E55.9 Vitamin D deficiency, unspecified; E78.2 Mixed hyperlipidemia; E11.9 Type 2 diabetes mellitus without complications
CPT/HCPCS: 36415; 80053; 80061; 82043; 82306; 87015; 87070; 87102; 87116; 87205; 87206

== ENCOUNTER 2024-10-10 14:25 | Outpatient (CLI) | payer MEDICARE, SELFPAY ==
[2024-10-10 15:22] LABS: Creatinine Urine 46.5 mg/dL
[2024-10-10 15:27] LABS: MALB Creatinine Ratio 142.2 mg/g (0-30); Microalbumin Urine Random 66.1 mg/L (0-16.7)
== END 2024-10-10 14:26 | disposition home or self-care (01) ==
PROVIDERS: PCP Family Medicine; Visit Provider Internal Medicine Endocrinology, Diabetes & Metabolism
DX: E11.9 Type 2 diabetes mellitus without complications (principal); R80.9 Proteinuria, unspecified
CPT/HCPCS: 82043

== ENCOUNTER 2024-12-28 13:47 | Outpatient (CLI) | payer MEDICARE, SELFPAY ==
--- NOTE | ~2024-12-28 | XR_ITS ---
Abdominal radiograph(s) INDICATION: Right flank pain COMPARISON: Report from CT 07/21/2023 TECHNIQUE: 2 views supine AP abdomen FINDINGS: Scattered colonic gas and stool. Small bowel loops not well seen. No evidence of organomegaly. Tiny right renal stone possible. No other nephroureteral calculi noted. Small radiopaque focus left paraspinal probably ingested. No acute bony abnormality. IMPRESSION: 1. Tiny right renal stone possible. 2. No other acute abnormality. Reviewed, dictated and finalized at location R.
--- NOTE | ~2024-12-28 | MR_ITS ---
EXAMINATION: MR lumbar spine wo con DATE: 12/28/2024 14:32 INDICATION: Low back pain. TECHNIQUE: Magnetic resonance imaging (MRI) of the lumbar spine was performed without intravenous contrast. Sequences included sagittal T2-weighted FSE, sagittal T2-weighted FS FSE, sagittal T1-weighted FSE, and axial T2-weighted FSE. COMPARISON: Lumbar spine MRI 02/19/2010 FINDINGS: There is 3 mm retrolisthesis of L1 on L2 and L2 on L3. Vertebral body heights are normal. There is mildly decreased disc height at T12-L1, moderately decreased disc height at L1-L2, and mildly decreased disc height at L2-L3. The distal spinal cord signal intensity is normal. The conus medullaris is at L1. The following disc levels are specifically discussed: L1-L2: The disc is bulging. There is mild bilateral facet joint osteoarthritis. There is mild bilateral neural foraminal stenosis. There is mild central canal stenosis. L2-L3: The disc is bulging. There is moderate bilateral facet joint osteoarthritis. There is mild bilateral neural foraminal stenosis. There is mild central canal stenosis. L3-L4: The disc is bulging. There is severe right and moderate left facet joint osteoarthritis. There is mild bilateral neural foraminal stenosis. There is mild central canal stenosis. L4-L5: The disc is bulging. There is severe bilateral facet joint osteoarthritis. There is mild bilateral neural foraminal stenosis. There is mild central canal stenosis. L5-S1: The disc is bulging. There is severe bilateral facet joint osteoarthritis. There is mild bilateral neural foraminal stenosis. There is mild central canal stenosis. IMPRESSION: 1. Moderate lumbar spondylosis, worsened from 02/19/2010. Reviewed, dictated and finalized at location E.
== END 2024-12-28 13:48 | disposition home or self-care (01) ==
LOC: GOSHIMG 13:49
PROVIDERS: PCP Family Medicine; Visit Provider Nurse Practitioner Family
DX: M47.896 Other spondylosis, lumbar region (principal)
CPT/HCPCS: 72148; 74018

== ENCOUNTER 2025-03-02 08:02 | Outpatient (CLI) | payer MEDICARE, SELFPAY ==
--- OUTSIDE RECORDS SUMMARY | 2025-01-08 10:00 | XMS_ITS ---
Author Organization [facility] Address [address] [place], [place] [address] Care Team Providers Care Hydropulper Operator Name Role Phone TERESA LARSON Unavailable [phone] Tara Arrieta Unavailable Unavailable Allergies No Known Allergies REASON FOR VISIT Patient presents for at-risk foot care . The patient has painful toenails that cause difficulty with ambulation and shoegear. The onset is gradual Medications Medication SIG (Take, Route, Frequency, Duration) Notes Start Date End Date Status Levothyroxine Sodium 88 MCG Tablet 1 tablet in the morning on an empty stomach Orally Once a day Active Multivitamin Active Atenolol 25 MG Tablet 1 tablet Orally On ce a day Active ZyrTEC 10 MG Tablet Chewable 1 tablet Or ally Once a day Active Chlor-Trimeton Activ e Losartan Potassium-HCTZ 100-25 MG Tablet 1 tablet Orally Once a day Active metFORMIN HCl ER (MOD) 500 MG Tablet Extended Release 24 Hour 1 tablet with evening meal Orally Once a day Active Atorvastatin Calcium 10 MG Tablet 1 tablet Orally Once a day Active Sucralfate 1 GM Tablet 1 tablet on an em pty stomach Orally Twice a day Active Vitamin D2 Active Mucinex Active Social History Social History Additional Details Category Social Info Options Details Migrated Social History Migrated Social History Alcohol intake : , History of tobacco use : , Smoking Status : Never used tobacco Vital Signs Height 60.00 in 01/08/2025 Weight 237 lbs 01/08/2025 BMI 46.28 kg/m2 01/08/2025 Height-cm 152.40 cm 01/08/2025 Weight-kg 107.5 kg 01/08/2025 Encounters Encounter Location Date Provider Diagnosis [facility] [place] [address] [facility] [address] [place], [place] [id number] 01/08/2025 TERESA LARSON Tinea unguium B35.1 ; Pain in right toe(s) M79.674 ; Pain in left toe(s) M79.675 and Atherosclerosis of [place] arteries of extremities with intermittent claudication, bilateral legs I70.213 Assessments Encounter Date Diagnosis (ICD Code) Assessment Notes Treatment Notes Treatment Clinical Notes Section Notes 01/08/2025 Tinea unguium (ICD-10 - B35.1) FUNGAL TOENAILS: Discussed various treatment options for fungal toenails including debridement, topical antifungals, oral antifungals, toenail avulsion, or toenail matrixectomy. NAIL DEBRIDEMENT: Nails 1-5 Bilateral were debrided extensively with nail nippers and emery board, reducing length and girth to pink healthy tissue with any subungual debris and necrotic tissue removed 01/08/2025 Pain in right toe(s) (ICD-10 - M79.674) 01/08/2025 Pain in left toe(s) (ICD-10 - M79.675) 01/08/2025 Atherosclerosis of [place] arteries of extremities with intermittent claudication, bilateral [...] care, sooner if problems arise Provider Name:TERESA BLACKAAKASHVaishnavi, 04:20:00 PM, [address], [place], [place], [id number], History and Physical Notes * HPI (History [...] blood thinners., Date last seen by Dr. Arrieat was July 2024., Initials ab sample Examination Category Sub-Category Detail Notes Category [...] well developed, well groomed and well nourished Progress Notes * PINKY ZAPATA MDOB: (69 yo F)Acc No.[id number]:01/08/2025 Patient: Ashu PINKY CHO M Provider: Roula Larson DPM :1955 A ge:69 Y S ex:Female Date:01/08/2025 Address:[address] [place] [address] Subjective: * Chief Complaints: * Magdalene ramos presents for at-risk foot care . The [...] Date last seen by Dr. Arrieta was July 2024., Initials ab. sample. * ROS: G eneral / Constitutional: [...] confusion, difficulty speaking, dizziness. * Medical History: No Medical History Documented Medical History Verified * Surgical History: No Surgical History documented. Surgical History verified. * Hospitalization/Major Diagno stic Procedure: No Hospitalization Documented. Hospitalization Verified. * Family History: F ather: PRN - [...] - Sister: :: Thyroid Dz,,known absent . F amily History Verified.. * Social History: M igrated Social History: M igrated Social History: Alcohol intake : , History of tobacco use : , Smoking Status : Never used tobacco. Social History Verified. * Medications: T akingMultivitamin ZyrTEC 10 MG [...] reconciled with the patient * Allergies: N .K.AreliyesAllergies Verified. Objective: * Vitals: S hoe Size: 7, Wt:237lbs, Wt-k.5 kg, Ht: 60.00 in, Ht-cm: 152.40 cm, BMI:46.28Index, Body Surface Area: 2.13. * Examination: C onstitutional: Constitutional T he [...] - M79.675 4 . A therosclerosis of [place] arteries of extremities with intermittent claudication, bilateral legs - I70.213 Plan: * Treatment: * Preventive Medicine: Screenings: F all risk screening F all Risk Assessment: N o falls in the past year. * Follow Up: 1 0-12 Weeks (Reason: At Risk Foot care, sooner if problems arise) Billing Information: * Visit Code: 58894 Office Visit, Est Pt., Level 3. * Procedure Codes: * Electronic signature of TERESA LARSON DPM on 03/02/2025 at 08:01 AM SENIOR APPLICATION SOFTWARE ENGINEER Sign off status: Pending * Provider: Roula Larson DPM Date: 0 01/08/2025 Generated for Nupur Argueta/Dillon on: 1 05/02/2024 08:01 AM SENIOR APPLICATION SOFTWARE ENGINEER
--- NOTE | ~2025-03-02 | US_ITS ---
LIMITED ABDOMINAL ULTRASOUND INDICATION: Flank Pain COMPARISON: CT from same day. Note is made that the CT was performed only minutes before the ultrasound.. FINDINGS: Liver: Visualized portions of the liver are normal. There is hepatopedal flow in the portal vein. Common bile duct: Normal in size. Gallbladder: The gallbladder wall is normal in thickness. No stones or sludge were seen. Carroll's sign: Negative Pancreas: The imaged portions appear normal. Right kidney: Right kidney appears normal on the images provided. IMPRESSION: No significant abnormality is seen. Reviewed, dictated and finalized at location A. ICE CORRESPONDENT
--- NOTE | ~2025-03-02 | XR_ITS ---
EXAMINATION: XR abdomen/kub 1V DATE: 03/02/2025 08:29 INDICATION: Flank pain TECHNIQUE: A supine view of the abdomen on 2 radiographs was obtained. COMPARISON: KUB dated 12/28/[address] dated 07/21/2023 FINDINGS: Large amount of stool scattered throughout the colon. No dilated loops of gas- filled bowel to suggest obstruction. Unchanged pattern of embolus and vascular calcifications in the pelvis. Elevation the left hemidiaphragm. Heart size is normal. IMPRESSION: 1. Large amount of colonic stool which could be seen in the setting of constipation. Reviewed, dictated and finalized at location A. ECT MANAGER ENTERTAINMENT AND MEDIA IMPRESSION: 1. Large amount of colonic stool which could be seen in the setting of constipa tion.
--- NOTE | ~2025-03-02 | CT_ITS ---
CT ABDOMEN AND PELVIS WITHOUT CONTRAST Clinical History: Flank pain Comparison: Abdominal x-ray 12/28/2024 CT abdomen and pelvis 07/21/2023 Technique: Unenhanced axial images lung bases to symphysis pubis Coronal, sagittal reformats CT images acquired with automatic exposure control for dose reduction DLP: 363 mGy-cm Findings: Without intravenous contrast, sensitivity for detecting visceral parenchymal abnormalities decreased. Lung bases: Clear. Visualized heart and pericardium: Unremarkable. Liver: Enlarged. Gallbladder: Unremarkable. Spleen: Unremarkable. Pancreas: Unremarkable. Adrenal glands: Unremarkable. Kidneys: Right kidney- No hydronephrosis. No renal stones. Left kidney- No hydronephrosis. No renal stones. Distal esophagus/stomach: Unremarkable. Small bowel loops: Normal caliber and wall thickness. Colon: Diverticula. Normal caliber and wall thickness. Normal RLQ appendix. Nodes: No enlarged nodes. Peritoneum: No ascites. No free intraperitoneal air. Urinary bladder: Unremarkable. Uterus: Removed. Adnexa: No masses. Bones: No acute bony abnormality. Soft tissues: Unremarkable. Unopacified abdominal aorta: No aneurysmal dilatation. IMPRESSION: 1. No acute findings. Reviewed, dictated and finalized at location R. ICATION PERFORMANCE ENGINEER IMPRESSION: 1. No acute findings.
--- OUTSIDE RECORDS SUMMARY | 2025-03-02 08:02 | XMS_ITS | Patient Health Record ---
Author Organization [facility] Address [address] [place], [place] [id number] Care Team Providers Care Radio Despatcher Name Role Phone TERESA LARSON Unavailable [phone] Tara Arrieta Unavailable Unavailable Allergies No Known Allergies Reason For Referral No Information Medications Medication SIG (Take, Route, Frequency, Duration) Notes Start Date End Date Status Levothyroxine Sodium 88 MCG Tablet 1 tablet in the morning on an empty stomach Orally Once a day Active Losartan Potassium-HCTZ 100-25 MG Tablet 1 tablet Orally Once a day Active metFORMIN HCl ER (MOD) 500 MG Tablet Extended Release 24 Hour 1 tablet with evening meal Orally Once a day Active Atorvastatin Calcium 10 MG Tablet 1 tablet Orally Once a day Active Multivitamin Active Atenolol 25 MG Tablet 1 tablet Orally On ce a day Active ZyrTEC 10 MG Tablet Chewable 1 tablet Or ally Once a day Active Sucralfate 1 GM Tablet 1 tablet on an em pty stomach Orally Twice a day Active Vitamin D2 Active Mucinex Active Chlor-Trimeton Activ e Social History Social History Additional Details Category Social Info Options Details Migrated Social History Migrated Social History Alcohol intake : , History of tobacco use : , Smoking Status : Never used tobacco Problems Problem Type SNOMED Code ICD Code Onset Dates Problem Status W/U Status Risk Notes Problem Eruption of skin (639249698) Rash and other nonspecific skin eruption (R21) 07/01/2012 Active confirmed Vital Signs Height-cm 152.40 cm 01/08/2025 Weight-kg 107.5 kg 01/08/2025 Height 60.00 in 01/08/2025 Weight 237 lbs 01/08/2025 BMI 46.28 kg/m2 01/08/2025 Encounters Encounter Location Date Provider Diagnosis [facility] [place] [address] [place] [id number] 01/08/2025 TERESA SNOOK Tinea unguium B35.1 ; Pain in right toe(s) M79.674 ; Pain in left toe(s) M79.675 and Atherosclerosis of [place] arteries of extremities with intermittent claudication, bilateral legs I70.213 [facility] [place] [address] [place] [id number] 04/03/2024 TERESA SNOOK Tinea unguium B35.1 ; Pain in right toe(s) M79.674 ; Pain in left toe(s) M79.675 and Atherosclerosis of [place] arteries of extremities with intermittent claudication, bilateral legs I70.213 [facility] [place] [address] [place] [id number] 06/05/2024 TERESA SNOOK Tinea unguium B35.1 ; Pain in right toe(s) M79.674 ; Pain in left toe(s) M79.675 and Atherosclerosis of [place] arteries of extremities with intermittent claudication, bilateral legs I70.213 [facility] [place] [address] [place] [id number] 08/21/2024 TERESA SNOOK Tinea unguium B35.1 ; Pain in right toe(s) M79.674 ; Pain in left toe(s) M79.675 and Atherosclerosis of [place] arteries of extremities with intermittent claudication, bilateral legs I70.213 [facility] [place] [address] [place] [id number] 10/30/2024 TERESA SNOOK Tinea unguium B35.1 ; Pain in right toe(s) M79.674 ; Pain in left toe(s) M79.675 and Atherosclerosis of [place] arteries of extremities with intermittent claudication, bilateral [...] Pain in right toe(s) (ICD-10 - M79.674) 08/21/2024 Tinea unguium (ICD-10 - B35.1) FUNGAL TOENAILS: Discussed various treatment options for fungal toenails including debridement, topical antifungals, oral antifungals, toenail avulsion, or toenail matrixectomy. NAIL DEBRIDEMENT: Nails 1-5 Bilateral were debrided extensively with nail nippers and emery board, reducing length and girth to pink healthy tissue with any subungual debris and necrotic tissue removed 08/21/2024 Pain in right toe(s) (ICD-10 - M79.674) 10/30/2024 Tinea unguium (ICD-10 - B35.1) FUNGAL TOENAILS: Discussed various treatment options for fungal toenails including debridement, topical antifungals, oral antifungals, toenail avulsion, or toenail matrixectomy. NAIL DEBRIDEMENT: Nails 1-5 Bilateral were debrided extensively with nail nippers and emery board, reducing length and girth to pink healthy tissue with any subungual debris and necrotic tissue removed 10/30/2024 Pain in right toe(s) (ICD-10 - M79.674) 01/08/2025 Tinea unguium (ICD-10 - B35.1) FUNGAL [...] Pain in left toe(s) (ICD-10 - M79.675) 10/30/2024 Pain in left toe(s) (ICD-10 - M79.675) 08/21/2024 Pain in left toe(s) (ICD-10 - M79.675) 06/05/2024 Pain in left toe(s) (ICD-10 - M79.675) 04/03/2024 Pain in left toe(s) (ICD-10 - M79.675) 04/03/2024 Atherosclerosis of [place] arteries of extremities with intermittent claudication, bilateral legs (ICD-10 - I70.213) 06/05/2024 Atherosclerosis of [place] arteries of extremities with intermittent claudication, bilateral legs (ICD-10 - I70.213) 08/21/2024 Atherosclerosis of [place] arteries of extremities with intermittent claudication, bilateral legs (ICD-10 - I70.213) 10/30/2024 Atherosclerosis of [place] arteries of extremities with intermittent claudication, bilateral legs (ICD-10 - I70.213) 01/08/2025 Atherosclerosis of [place] arteries of extremities with intermittent claudication, bilateral legs (ICD-10 - I70.213) Plan Of Treatment Next Appt Details Provider Name:TERESA MARSHA, 04:20:00 PM, [address], [place], [place], [phone], Insurance Providers Payer Name Payer Address Payer Phone Subscriber Number Group Number Insured Name Patient Relationship to Insured Coverage Start Date Coverage End Date AARP MedicareCo mplete ([facility] [employer]) [address] [place], [place] [phone] [id number] PINKY ZAPATA Self - patient is the insured
--- OUTSIDE RECORDS SUMMARY | 2025-03-02 08:02 | XMS_ITS | Clinical Summary ---
Author Organization [facility] Address [address] [place] [address] Care Team Providers Care Health Informatics Specialist Name Role Phone Tara Arrieta MD Primary Care Provider [phone] Allergies No known active allergies Medications folic [...] obesity 02/28/2024 Body mass index 40.0-44.9, adult ([facility]) 02/27 Hypertension 12/26/2018 Overview (12/26/2018): [...] rosacea Hypertension Hypertension Anemia Anemia Diabetes mellitus Diabetes Asthma Asthma Hyperlipidemia Hyperlipidemia Type 2 diabetes mellitus Diabete s type 2; Comments: [place] 12/01/2013 - Hx [...] on file Legal Sex Female 12:20 PM PRESCHOOL ADVISER Gender Identity Female 04/01/2023 11:37 AM PRESCHOOL ADVISER Sexual Orientation Straight 04/01/2023 11 :37 AM PRESCHOOL ADVISER Last Filed Vital Signs Vital Sign Reading Time Taken Comments Blood Pressure 132/72 02/28/2024 10:13 AM PRESCHOOL ADVISER Pulse 93 02/28/2024 10:13 AM PRESCHOOL ADVISER Temperature 36.7 C (98 F) 06/14/2017 12:56 PM PRESCHOOL ADVISER Respiratory Rate 16 06/14/2017 12:56 PM PRESCHOOL ADVISER Oxygen Saturation 95% 02/28/2024 10:13 AM PRESCHOOL ADVISER Inhaled Oxygen Concentration - - Weight 94.8 kg (209 lb) 02/28/2024 10:13 AM PRESCHOOL ADVISER Height 152.4 cm (5') 02/28/2024 10:13 AM PRESCHOOL ADVISER Body Mass Index 40.82 02/28/2024 10:13 AM PRESCHOOL ADVISER Plan of Treatment Health Maintenance Due Date Last Done Comments Breast Cancer Screening-Mammogram 1955 Colon Cancer Screening-Colonoscopy 1955 Depression Screening 1955 Fall Risk Assessment 1955 Hepatitis C Screening 1955 Osteoporosis Screening-Bone Density Scan 1955 DTaP/Tdap/Td Vaccine (1 - Tdap) 1965 Hepatitis B Screening 1972 Well Visit 65+ 12/13/2019 Zoster Vaccine (2 of 2) 12/13/2020 10/18/2020 Covid-19 Vaccine (5 - 2024-2 6 season) 2024 09/26/2021, 03/28/2021, 07/10/2020, Additional history exists Influenza Vaccine (#1) 2024 , 01/23/2019, 01/06/2018, Additional history exists Pneumococcal vaccine 65+ (3 of 3 - PCV20 or PCV21) 05/15/2025 05/15/2020, 11/17/2019 Insurance MEDICARE [facility] MEDICARE ADVANTAGE [facility] MEDICARE ADVANTAGE Care Teams Health Informatics Specialist Relationship Specialty Start Date End Date Tara Arrieta MD PCP - General 03/24/13
--- OUTSIDE RECORDS SUMMARY | 2025-03-02 08:02 | XMS_ITS | Clinical Summary ---
Author Organization [facility] Address [address] [place] [address] Care Team Providers Care Medical Coding Specialist Name Role Phone Tara Arrieta MD Primary Care Provider [phone] Source Comments [facility],non-owned Affiliates and Associated Physician Practices is amultiple site organization consisting of ambulatory clinics and hospital sitesin [place], [place], [place] and [place]. This disclosure is being madepursuant to the Care Everywhere program and may not contain all information available regarding this patient. Last updated 18.[facility] Allergies No known active allergies Medications * Be aware that medications may not be up to date on this document. Alwaysverify current medications with the patient. albuterol HFA (Proventil; Ventolin; Proair) 108 (90 Base) MCG/ACT inhaler Inhale 2 (two) puffs by mouth every 6 hours as needed 3 Active atenolol (Tenormin) 25 MG tablet Take 1 (one) tablet by mouth once daily Active azelastine (Astelin) 0.1 % nasal spray [place] 2 (two) sprays into each nostril as needed 3 Active budesonide (Pulmicort) 0.25 MG/2ML nebulizer suspension Inhale 2 mL by mouth as directed 4 Active cetirizine (ZyrTEC) 10 MG chew tablet Take 1 (one) tablet by mouth once daily Active Cholecalciferol 1.25 MG (98826 UT) Take 50,000 Units by mouth every 7 days Active fluticasone propionate (Flonase) 50 MCG/ACT nasal spray [place] 2 (two) sprays into each nostril as needed 3 Active losartan (Cozaar) 25 MG tablet Take 1 (one) tablet by mouth once daily 4 Active metFORMIN ER 24hr (Glucophage XR) 500 MG tablet Take 2 (two) tablets by mouth 2 times daily 3 Active omeprazole (PriLOSEC) 40 MG capsule Take 1 (one) capsule by mouth once daily 4 Active sucralfate (Carafate) 1 GM tablet Take 1 (one) tablet by mouth once daily Active triamcinolone acetonide (Kenalog) 0.1 % ointment Apply to affected area as needed 4 Active vitamin D, ergocalciferol, (Drisdol) 1.25 MG (50285 UT) capsule Take 1 (one) capsule by mouth every 7 days 4 Active folic acid (Folvite) 1 MG tablet Take 1 (one) tablet by mouth once daily 4 Active atorvastatin (Lipitor) 20 MG tablet Take 1 (one) tablet by mouth at bedtime 4 Active levothyroxine (Synthroid) 112 MCG tablet Take 1 (one) tablet by mouth once daily 4 Active clotrimazole (Lotrimin AF) 1 % cream Apply to affected area as directed 5 Active Farxiga 5 MG tablet Take 1 (one) tablet by mouth once daily 4 Active amitriptyline (Elavil) 10 MG tablet Take 1 (one) tablet by mouth at bedtime Active dapagliflozin propanediol (Farxiga) 10 MG tablet Take 1 (one) tablet by mouth once daily 5 Active Multiple Vitamins-Mineral s (CENTRUM MINIS WOMEN 50+ PO) Take 1 capsule by mouth once daily Active chlorpheniramine (Chlorphen) 4 MG tablet Take 1 (one) tablet by mouth every 6 hours as needed for Nasal Congestion or Allergies Active Simethicone (Gas-X) 125 MG chew tablet Take 1 (one) tablet by mouth 4 times daily as needed for Gas Pain Active docusate sodium (Stool Softener) 100 MG capsule Take 1 (one) capsule by mouth once daily Active mometasone (Elocon) 0.1 % cream Apply to affected area every 2 days 15 g Active Active Problems Problem Noted Date Diagnosed Date 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 No need for rheumatology follow up and symptomatic Rx as needed per PCP. Immunizations Immunization Administration Dates Next Due INFLUENZA VACCINE, TRIV. [...] = 0.6 oz pur e alcohol) occ Comments Unknown Sex and Gender Information Value Date Recorded Sex Assigned at Not on file Legal Sex Female 6:17 AM CERTIFICATION ENGINEER Gender Identity Not on file Sexual Orientation Not on file Last Filed Vital Signs Vital Sign Reading Time Taken Comments Blood Pressure 136/78 10/09/2024 10:40 AM CDT Pulse 100 10/09/2024 10:40 AM CDT Temperature - - Respiratory Rate - - Oxygen Saturation - - Inhaled Oxygen Concentration - - Weight 85.3 kg (188 lb) 10/09/2024 10:40 AM CDT Height 149.9 cm (4' 11) 10/09/2024 10:40 AM CDT Body Mass Index 37.97 10/09/2024 10:40 AM CDT Plan of Treatment Upcoming Encounters Date Type Department Care Team (Late st Contact Info) Description 04/09/2025 10:30 AM CERTIFICATION ENGINEER [facility] [address] [place] [phone] Karl HannahMikie navarro [address] [facility] [place] [address] 04/09/2025 11:00 AM CERTIFICATION ENGINEER [facility] [address] [place] [phone] Marshall Lux MD [address] [place] [address] Health Maintenance Due Date Last Done Comments [...] or over 60 yrs (1 - Risk 50-74 years 1-dose series) 2004 ZOSTER VACCINE (2 of 2) 12/13/2020 10/18/2020 SCREENING FOR DIABETES 10/25/2023 DEPRESSION SCREENING 04/19/2024 MEDICARE AWV CALENDAR YEAR 2024 COVID-19 VACCINE ( season) 2024 03/11/2024, 09/26/2021, 03/28/2021, Additional history exists INFLUENZA VACCINE (#1) 2024 , 02/04/2022, 03/28/2021, Additional history exists COLOGUARD (AGES 45-75) - COLON CA SCREENING 02/01/2027 02/02/2024 Colorectal Cancer Screening 02/01/2027 PNEUMOCOCCAL VACCINE 50+ Completed 022, 05/15/2020, 11/17/2019 HEPATITIS B VACCINE Aged Out No longe [...] on patient's age to complete this topic Insurance MEDICARE [employer] MANAGED MEDICARE ADV * Guarantor: PINKY CASTANEDA Account Type Relation to Patient Date of Phone Billing Address Personal/Family [id number] MANAGED MEDICARE ADV * Guarantor: PINKY CASTANEDA Account Type Relation to Patient Date of Phone Billing Address Personal/Family [phone] [place] [phone] * Guarantor: PINKY CASTANEDA Account Type Relation to Patient Date of Phone Billing Address Personal/Family [address] [place] [address] Care Teams Medical Coding Specialist Relationship Specialty Start Date End Date Tara Arrieta MD [address] [place] [address] PCP - General Family Medicine 10/25/23
[2025-03-02 09:43] LABS: Hematocrit 43.2 % (37.0-47.0); Hemoglobin 13.6 g/dL (12.0-15.0); Mean Corpuscular HGB Conc 31.5 g/dl (32-36); Mean Corpuscular Hemoglobin 26.4 pg (26-34); Mean Corpuscular Volume 83.9 fl (80-100); Platelet Count Result 285 k/mm3 (150-375); Red Blood Count 5.15 M/mm3 (4.2-5.4); White Blood Count 7.4 K/mm3 (4.5-10.0)
[2025-03-02 10:01] LABS: Alanine Aminotransferase 19 U/L (6-35); Albumin Level 4.4 g/dL (3.5-5.1); Alkaline Phosphatase 80 U/L (38-126); Anion Gap 8 mmol/L (4-12); Aspartate Amino Transferase 32 U/L (14-36); Bilirubin,Total 0.5 mg/dL (0.2-1.3); Blood Urea Nitrogen 10 mg/dL (7-17); Calcium 8.6 mg/dL (8.4-10.2); Carbon Dioxide 29 mmol/L (22-30); Chloride 101 mmol/L (98-107); Estimated Glomerular Filt Rate > 60; Glucose 103 mg/dL (65-110); Magnesium 2.1 mg/dL (1.6-2.3); Potassium 3.9 mmol/L (3.4-5.0); Sodium 138 mmol/L (137-145); Total Protein 7.1 g/dL (6.3-8.2)
[2025-03-02 11:00] LABS: Vitamin B12 482.0 pg/mL (239-931)
== END 2025-03-02 08:03 | disposition home or self-care (01) ==
PROVIDERS: Nurse Practitioner Family; PCP Student in an Organized Health Care Education/Training Program; Visit Provider Physician Assistant Medical
DX: K76.0 Fatty (change of) liver, not elsewhere classified (principal); K21.9 Gastro-esophageal reflux disease without esophagitis; E53.8 Deficiency of other specified B group vitamins
CPT/HCPCS: 36415; 74018; 74176; 76705; 80053; 82607; 83735; 85027

== ENCOUNTER 2025-04-18 14:13 | Outpatient (CLI) | payer MEDICARE, SELFPAY ==
--- OUTSIDE RECORDS SUMMARY | 2025-01-08 10:00 | XMS_ITS ---
Author Organization [facility] Address [address] [place], [place] [address] Care Team Providers Care Locker Room Clerk Name Role Phone TERESA LARSON Unavailable [phone] Tara Arrieta Unavailable Unavailable Allergies No Known [...] Location Date Provider Diagnosis [facility] [place] [address] [place], [place] [id number] 01/08/2025 TERESA LARSON Tinea unguium B35.1 ; Pain in right toe(s) M79.674 ; Pain in left toe(s) M79.675 and Atherosclerosis of [place] arteries of extremities with intermittent claudication, bilateral [...] toe(s) (ICD-10 - M79.675) 01/08/2025 Atherosclerosis of pechanga arteries of extremities with intermittent claudication, bilateral [...] Foot care, sooner if problems arise Provider Name:SOFIE ROWAN, 07/05/2025 10:20:00 AM, [address] [place] [address], [phone], History and Physical Notes * HPI (History [...] by Dr. Arrieta was July 2024., Initials ab sample Examination [...] * PINKY ZAPATA MDOB: (69 yo F)Acc No.[id number]:01/08/2025 Patient: Ashu PINKY CHO Provider: Roula Larson DPM :1955 A ge:69 Y S ex:Female Date:01/08/2025 Address:[address] [place] [address] Subjective: * Chief Complaints: * Magdalene ramos [...] reconciled with the patient * Allergies: N .K.D.A.yesAllergies Verified. Objective: * Vitals: S hoe Size: [...] - M79.675 4 . A therosclerosis of [place] arteries of extremities with intermittent claudication, bilateral legs - I70.213 Plan: * Treatment: * Preventive Medicine: Screenings: F all risk screening F all Risk Assessment: N o falls in the past year. * Follow Up: 1 0-12 Weeks (Reason: At Risk Foot care, sooner if problems arise) Billing Information: * Visit Code: 64205 Office Visit, Est Pt., Level 3. * Procedure Codes: * Electronic signature of TERESA LARSON DPM on 04/18/2025 at 02:16 PM PHYSICAL THERAPY TECHNICIAN Sign off status: Pending * Provider: Roula Larson DPM Date: 0 01/08/2025 Generated for Nupur swift/Dmitriy/Dillon on: 1 02:16 PM PHYSICAL THERAPY TECHNICIAN
--- OUTSIDE RECORDS SUMMARY | 2025-03-12 10:20 | XMS_ITS ---
Author Organization [facility] Address [address] [place], [place] [id number] Care Team Providers Care Dialer Name Role Phone TERESA LARSON Unavailable [phone] Tara Arrieta Unavailable Unavailable Allergies No Known Allergies REASON FOR VISIT Patient presents for at-risk foot care . The patient has painful toenails that cause difficulty with ambulation and shoegear. The onset is gradual Medications Medication SIG (Take, Route, Frequency, Duration) Notes Start Date End Date Status Atorvastatin Calcium 10 MG Tablet 1 tablet Orally Once a day Active metFORMIN HCl ER (MOD) 500 MG Tablet Extended Release 24 Hour 1 tablet with evening meal Orally Once a day Active Losartan Potassium-HCTZ 100-25 MG Tablet 1 tablet Orally Once a day Active Levothyroxine Sodium 88 MCG Tablet 1 tablet in the morning on an empty stomach Orally Once a day Active Atenolol 25 MG Tablet 1 tablet Orally On ce a day Active Sucralfate 1 GM Tablet 1 tablet on an em pty stomach Orally Twice a day Active ZyrTEC 10 MG Tablet Chewable 1 tablet Or ally Once a day Active Chlor-Trimeton Activ e Mucinex Active Vitamin D2 Active Multivitamin Active Social History Social History Additional Details Category Social Info Options Details Migrated Social History Migrated Social History Alcohol intake : , History of tobacco use : , Smoking Status : Never used tobacco Vital Signs Height 60.00 in 03/12/2025 Weight 237 lbs 03/12/2025 BMI 46.28 kg/m2 03/12/2025 Height-cm 152.4 cm 03/12/2025 Weight-kg 107.5 kg 03/12/2025 Encounters Encounter Location Date Provider Diagnosis [facility] [address] [place], [place] [id number] 03/12/2025 TERESA LARSON Tinea unguium B35.1 ; Pain in right toe(s) M79.674 ; Pain in left toe(s) M79.675 and Atherosclerosis of [place] arteries of extremities with intermittent claudication, bilateral legs I70.213 Assessments Encounter Date Diagnosis (ICD Code) Assessment Notes Treatment Notes Treatment Clinical Notes Section Notes 03/12/2025 Tinea unguium (ICD-10 - B35.1) FUNGAL TOENAILS: Discussed various treatment options for fungal toenails including debridement, topical antifungals, oral antifungals, toenail avulsion, or toenail matrixectomy. NAIL DEBRIDEMENT: Nails 1-5 Bilateral were debrided extensively with nail nippers and emery board, reducing length and girth to pink healthy tissue with any subungual debris and necrotic tissue removed 03/12/2025 Pain in right toe(s) (ICD-10 - M79.674) 03/12/2025 Pain in left toe(s) (ICD-10 - M79.675) 03/12/2025 Atherosclerosis of [place] arteries of extremities with intermittent claudication, bilateral [...] tissue removed Next Appt Details Follow Up: 3 Weeks, Reason: At Risk Foot care, sooner if problems arise Provider Name:SOFIE ROWAN, 07/05/2025 10:20:00 AM, [address] [place] [address], [phone], History and Physical Notes * HPI (History [...] Date last seen by Dr. Arrieta was 01/11.., Initials IR sample Examination Category Sub-Category Detail Notes Category [...] * PINKY ZAPATA MDOB: (69 yo F)Acc No.[id number]:03/12/2025 Patient: Ashu PINKY CHO Provider: Roula Larson DPM :1955 A ge:69 Y S ex:Female Date:03/12/2025 Address:[address] [place] [address] Subjective: * Chief Complaints: * P richard presents for at-risk foot care . The [...] Date last seen by Dr. Arrieta was 01/11.., Initials IR. sample. * ROS: G eneral / Constitutional: [...] confusion, difficulty speaking, dizziness. * Medical History: Denies Past Medical History No Medical History Documented Medical History Verified * Surgical History: Denies Past Surgical History. Surgical History verified. * Hospitalization/Major Diagno stic Procedure: Denies Past Hospitalization. Hospitalization Verified. * Family History: F ather: [...] Wt:237lbs, Wt-k.5 kg, Ht: 60.00 in, Ht-cm: 152.4 cm, BMI:46.28Index, Body Surface Area: 2.13. * [...] - M79.675 4 . A therosclerosis of [place] arteries of extremities with intermittent claudication, bilateral legs - I70.213 Plan: * Treatment: * Follow Up: 3 Weeks (Reason: At Risk Foot care, sooner if problems arise) Billing Information: * Visit Code: 88740 Office Visit, Est Pt., Level 3. * Procedure Codes: * Electronic signature of TERESA LARSON DPM on 04/18/2025 at 02:16 PM HOME COORDINATOR Sign off status: Pending * Provider: Roula Larson DPM Date: 05/12/2024 Generated for Nupur Argueta/Dillon on: 02:16 PM HOME COORDINATOR
--- OUTSIDE RECORDS SUMMARY | 2025-04-18 14:17 | XMS_ITS | Patient Health Record ---
Author Organization [facility] Address [address] [place], [place] [id number] Care Team Providers Care Engineering Secretary Name Role Phone TERESA LARSON Unavailable [phone] Tara Arrieta Unavailable Unavailable Allergies No Known Allergies Reason For Referral No Information Medications Medication SIG (Take, Route, Frequency, Duration) Notes Start Date End Date Status Sucralfate 1 GM Tablet 1 tablet on an em pty stomach Orally Twice a day Active Atorvastatin Calcium 10 MG Tablet 1 tablet Orally Once a day Active metFORMIN HCl ER (MOD) 500 MG Tablet Extended Release 24 Hour 1 tablet with evening meal Orally Once a day Active ZyrTEC 10 MG Tablet Chewable 1 tablet Or ally Once a day Active Chlor-Trimeton Activ e Mucinex Active Vitamin D2 Active Losartan Potassium-HCTZ 100-25 MG Tablet 1 tablet Orally Once a day Active Levothyroxine Sodium 88 MCG Tablet 1 tablet in the morning on an empty stomach Orally Once a day Active Atenolol 25 MG Tablet 1 tablet Orally On ce a day Active Multivitamin Active Social History Social History Additional Details Category Social Info Options Details Migrated Social History Migrated Social History Alcohol intake : , History of tobacco use : , Smoking Status : Never used tobacco Problems Problem Type SNOMED Code ICD Code Onset Dates Problem Status W/U Status Risk Notes Problem Eruption of skin (061242270) Rash and other nonspecific skin eruption (R21) 07/01/2012 Active confirmed Vital Signs Height-cm 152.4 cm 03/12/2025 Weight-kg 107.5 kg 03/12/2025 Height 60.00 in 03/12/2025 Weight 237 lbs 03/12/2025 BMI 46.28 kg/m2 03/12/2025 Encounters Encounter Location Date Provider Diagnosis [facility] [address] [place] [id number] 01/08/2025 TERESA SNOOK Tinea unguium B35.1 ; Pain in right toe(s) M79.674 ; Pain in left toe(s) M79.675 and Atherosclerosis of [place] arteries of extremities with intermittent claudication, bilateral legs I70.213 [facility] [address] [address] [place] [id number] 03/12/2025 TERESA SNOOK Tinea unguium B35.1 ; Pain in right toe(s) M79.674 ; Pain in left toe(s) M79.675 and Atherosclerosis of [place] arteries of extremities with intermittent claudication, bilateral legs I70.213 [facility] [address] [place] [id number] 06/05/2024 TERESA SNOOK Tinea unguium B35.1 ; Pain in right toe(s) M79.674 ; Pain in left toe(s) M79.675 and Atherosclerosis of [place] arteries of extremities with intermittent claudication, bilateral legs I70.213 [facility] [address] [place] [address] [id number] 08/21/2024 TERESA SNOOK Tinea unguium B35.1 ; Pain in right toe(s) M79.674 ; Pain in left toe(s) M79.675 and Atherosclerosis of [place] arteries of extremities with intermittent claudication, bilateral legs I70.213 [facility] [address] [place] [id number] 10/30/2024 TERESA SNOOK Tinea unguium B35.1 ; Pain in right toe(s) M79.674 ; Pain in left toe(s) M79.675 and Atherosclerosis of [place] arteries of extremities with intermittent claudication, bilateral [...] in right toe(s) (ICD-10 - M79.674) 03/12/2025 Tinea unguium (ICD-10 - B35.1) FUNGAL [...] in left toe(s) (ICD-10 - M79.675) 01/08/2025 Pain in left toe(s) (ICD-10 - M79.675) 10/30/2024 Pain in left toe(s) (ICD-10 - M79.675) 08/21/2024 Pain in left toe(s) (ICD-10 - M79.675) 06/05/2024 Pain in left toe(s) (ICD-10 - M79.675) 06/05/2024 Atherosclerosis of [place] arteries of extremities with intermittent claudication, bilateral legs (ICD-10 - I70.213) 08/21/2024 Atherosclerosis of [place] arteries of extremities with intermittent claudication, bilateral legs (ICD-10 - I70.213) 10/30/2024 Atherosclerosis of [place] arteries of extremities with intermittent claudication, bilateral legs (ICD-10 - I70.213) 01/08/2025 Atherosclerosis of [place] arteries of extremities with intermittent claudication, bilateral legs (ICD-10 - I70.213) 03/12/2025 Atherosclerosis of [place] arteries of extremities with intermittent claudication, bilateral legs (ICD-10 - I70.213) Plan Of Treatment Next Appt Details Provider Name:SOFIE ROWAN, 07/05/2025 10:20:00 AM, [address] [place] [address], [phone], Insurance Providers Payer Name Payer Address Payer Phone Subscriber Number Group Number Insured Name Patient Relationship to Insured Coverage Start Date Coverage End Date [facility] Medicare[employer] mplete (Securer [employer]) [address] [place], [place] [id number] PINKY ZAPATA Self - patient is the insured
--- OUTSIDE RECORDS SUMMARY | 2025-04-18 14:17 | XMS_ITS | Clinical Summary ---
Author Organization [facility] Address [address] [place] [address] Care Team Providers Care Lpn Care Manager Name Role Phone Tara Arrieta MD Primary Care Provider Allergies No known active allergies Medications folic acid (FOLVITE) 1 mg tablet TAKE ONE TABLET BY MOUTH ONCE DAILY 30 3 03/24/2013 Active losartan (COZAAR) 25 mg tablet take 1 tablet by oral route every day 0 0 04/03/2016 Active metFORMIN XR (GLUCOPHAGE XR) 500 mg 24 hr tablet take 1 tablet by oral route every day with the evening meal 0 0 12/01/2013 Active atorvastatin (LIPITOR) 20 mg tabletIndicatio ns:Hypercholest eremia TAKE 1 TABLET BY MOUTH EVERY DAY 90 tablet 06/19/2021 Active OMEPRAZOLE ORAL Take 40 mg by mouth daily 11/20/2021 Active cholecalciferol (VITAMIN D-3) 50,000 unit capsule Take 1 capsule (50,000 Units total) by mouth once a week Active clotrimazole 1 % cream APPLY TO THE AFFECTED AREA EVERY 12 HOURS Active Farxiga 10 mg tablet Take 1 tablet (10 mg total) by mouth daily Active levothyroxine (SYNTHROID) 112 mcg tablet Take 1 tablet (112 mcg total) by mouth daily 01/07/2025 Active amitriptyline (ELAVIL) 10 mg tablet Take 1 tablet (10 mg total) by mouth nightly at bedtime Active simethicone (MYLICON) 125 mg chewable tablet Take 1 tablet (125 mg total) by mouth 4 (four) times a day as needed Active sucralfate (CARAFATE) 1 gram tablet every 12 hours Active Active Problems Problem Noted Date Diagnosed Date Palpitations 02/28/2024 Severe obesity 02/28/2024 Body mass index 40.0-44.9, adult ([facility]) 02/27 Hypertension 12/26/2018 Overview (12/26/2018): Hypertension Other chest pain 10/17/2018 Hypercholesteremia 10/17/2018 Psoriasis 06/14/2017 Psoriasis with arthropathy 05/05/2013 Overview (07/24/2016): Psoriatic arthritis Drug indicated 05/05/2013 Overview (07/24/2016): High risk medication use Encounters Date Type Department Care Team Description 03/05/2025 10:00 AM BACK SHOE CUTTER Office Visit [facility] [address] [place] [address] Damian Hatch MD Hypercholesteremia (Primary Dx); Palpitations; Other chest pain; Primary hypertension from Last 3 Months Immunizations Immunization Administration Dates Next Due Influenza, Trivalent, IM (MDV) 02/06/2014 Surgical History Surgery Date Site/Laterality Comments CHOLECYSTECTOMY 1989 Cholecystectomy THYROIDECTOMY 1974 Thyroidectomy HYSTERECTOMY 1989 Hysterectomy Medical History Medical History Date Comments Hx Other Medical 1972 Lumpectomy Hx Other Medical 1973 reconstructive hand surgery Hx Other Medical chronic [...] on file Legal Sex Female 12:20 PM BACK SHOE CUTTER Gender Identity Female 04/01/2023 11:37 AM BACK SHOE CUTTER Sexual Orientation Straight 04/01/2023 11 :37 AM BACK SHOE CUTTER Last Filed Vital Signs Vital Sign Reading Time Taken Comments Blood Pressure 114/70 03/05/2025 10:14 AM BACK SHOE CUTTER Pulse 94 03/05/2025 10:14 AM BACK SHOE CUTTER Temperature 36.7 C (98 F) 06/14/2017 12:56 PM BACK SHOE CUTTER Respiratory Rate 16 06/14/2017 12:56 PM BACK SHOE CUTTER Oxygen Saturation 97% 03/05/2025 10:14 AM BACK SHOE CUTTER Inhaled Oxygen Concentration - - Weight 85 kg (187 lb 4.8 oz) 03/05/2025 10:14 AM BACK SHOE CUTTER Height 152.4 cm (5') 03/05/2025 10:14 AM BACK SHOE CUTTER Body Mass Index 36.58 03/05/2025 10:14 AM BACK SHOE CUTTER Plan of Treatment Health Maintenance Due Date Last Done Comments Breast Cancer Screening-Mammogram 1955 Colon Cancer Screening-Colonoscopy 1955 Depression Screening 1955 Fall Risk Assessment 1955 Hepatitis C Screening 1955 Osteoporosis Screening-Bone Density Scan 1955 Hepatitis B Screening 1972 DTaP/Tdap/Td Vaccine (1 - Tdap) 10/13/2003 4 Well Visit 65+ 12/13/2019 Zoster Vaccine (3 of 3) 12/13/2020 10/18/2020, 04/02 Covid-19 Vaccine (5 - 2024-2 6 season) 2024 09/26/2021, 03/28/2021, 07/10/2020, Additional history exists Influenza Vaccine (#1) 2024 4, 02/04/2022, 03/28/2021, Additional history exists Pneumococcal vaccine 65+ (3 of 3 - PCV20 or PCV21) 05/15/2025 05/15/2020, 11/17/2019 Procedures Procedure Name Priority Date/Time Associated Diagnosis Comments POCT LIPID PANEL Routine 03/05/2025 11:2 7 AM BACK SHOE CUTTER Hypercholesteremia from Last 3 Months Results * POCT lipid panel (03/05/2025 11:27 AM BACK SHOE CUTTER) Cholesterol, POC 137 <200 MG/DL HDL, POC 64 >=40 mg/dL Triglycerides, POC 110 <=149 mg/dL LDL Cholesterol POC 52 <=129 mg/dL Chol/HDL Ratio, POC 0.8 NONE Non-HDL Cholesterol, POC 74 NONE mg/dL Cholesterol Total, POC 137 30 - 199 mg/dL Capillary blood 03/05/2025 1 1:27 AM BACK SHOE CUTTER us Damian Hatch MD POINT OF CARE TEST O RDERABLES Final Result from Last 3 Months Insurance MEDICARE [facility] MEDICARE ADVANTAGE [facility] MEDICARE ADVANTAGE Care Teams Lpn Care Manager Relationship Specialty Start Date End Date Tara Arrieta MD PCP - General 03/24/13
--- OUTSIDE RECORDS SUMMARY | 2025-04-18 14:17 | XMS_ITS | Clinical Summary ---
Author Organization [facility] Address [address] [place] [address] Care Team Providers Care Test Kitchen Home Economist Name Role Phone Tara Arrieta MD Primary Care Provider [phone] Source Comments [facility],non-owned Affiliates and Associated Physician Practices is amultiple site organization consisting of ambulatory clinics and hospital sitesin [place], [place], [place] and [place]. This disclosure is being madepursuant to the Care Everywhere program and may not contain all information available regarding this patient. Last updated 18.[facility] Allergies No known active allergies Medications * [...] Active azelastine (Astelin) 0.1 % nasal spray Tsaile 2 (two) sprays into each nostril as needed 3 Active budesonide (Pulmicort) 0.25 MG/2ML nebulizer suspension Inhale 2 mL by mouth as directed 4 Active cetirizine (ZyrTEC) 10 MG chew tablet Take 1 (one) tablet by mouth once daily Active Cholecalciferol 1.25 MG (29921 UT) Take 50,000 Units by mouth every 7 days Active fluticasone propionate (Flonase) 50 MCG/ACT nasal spray Tsaile 2 (two) sprays into each nostril as [...] Active vitamin D, ergocalciferol, (Drisdol) 1.25 MG (94708 UT) capsule Take 1 (one) capsule by [...] area every 2 days 15 g Active mometasone (Elocon) 0.1 % cream Apply to affected area once daily 15 g Active Active Problems Problem Noted Date Diagnosed Date 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 No need for rheumatology follow up and symptomatic Rx as needed per PCP. Encounters Date Type Department Care Team Description 04/09/2025 11:00 AM WALL WASHER Office Visit [facility] - ENT [address] [place] [phone] Marshall Lux MD Sensorineural hearing loss (SNHL) of both ears (Primary Dx) 04/09/2025 10:30 AM WALL WASHER Testing Visit [facility] - [facility] [address] [place] [phone] Hannah Barajas AuD Sensorineural hearing loss (SNHL) of both ears 04/09/2025 Travel from Last 3 Months Immunizations Immunization Administration Dates Next Due INFLUENZA VACCINE, TRIV. (AF LURIA, FLUZONE TRIVALENT; 6MO+) (IIV3) 02/05/2020,02/06/2014,01/22/2006 COVID MODERNA 12+ yr 50mcg/0.5mL 03/11/2024 Covid Moderna booster monova lent 6y-11yr 0.5ml 03/12/2024,09/26/2021,03/28/2021,2020,06/12/2020 Covid Moderna primary monova lent 12+ yr 0.5mL 09/26/2021,03/28/2021,07/10/2020,2020 FLU VACCINE TRI IIV3 SPLIT I M (FLUVIRIN) 01/06/2018 INFLUENZA VACCINE, HIGH-DOSE , QUADR. (FLUZONE HIGH-DOSE QUADRIVALENT; 65Y+), 0.7 ML (HD-IIV4) 02/04/2022,03/28/2021 INFLUENZA VACCINE, HIGH-DOSE , TRIV. (FLUZONE HIGH-DOSE TRIVALENT; 65Y+) (HD-IIV3) 02/28/2024 INFLUENZA VACCINE, QUADR. (F LUZONE; FLULAVAL; FLUARIX; AFLURIA QUADRIVALENT; 6MO+), 0.5 ML (IIV4) 03/28/2021,01/23/2019 PNEUMOCOCCAL PCV20 CONJ VAC IM 07/09/2021 PNEUMOCOCCAL PPV VACCINE 11/17/2019 Pneumococcal Pcv13 Conj 05/15/2020 TD VACCINE 10/12/2003 ZOSTER VACCINE, LIVE 10/18/2020,04/02/2020 Zoster Hzv Vacc Recombinant Inj Im 10/18/2020 [...] on file Legal Sex Female 6:17 AM WALL WASHER Gender Identity Not on file Sexual Orientation Not on file Last Filed Vital Signs Vital Sign Reading Time Taken Comments Blood Pressure 145/81 04/09/2025 11:15 AM WALL WASHER Pulse 102 04/09/2025 11:15 AM WALL WASHER Temperature - - Respiratory Rate - - Oxygen Saturation - - Inhaled Oxygen Concentration - - Weight 81.6 kg (180 lb) 04/09/2025 11:15 AM WALL WASHER Height 149.9 cm (4' 11) 04/09/2025 11:15 AM WALL WASHER Body Mass Index 36.36 04/09/2025 11:15 AM WALL WASHER Plan of Treatment Upcoming Encounters Date Type Department Care Team (Late st Contact Info) Description 05/14/2025 2:15 PM WALL WASHER Office Visit [facility] - ENT [address] [place] [phone] Marshall Lux MD [address] [place] [address] [address] [place] [address] Health Maintenance Due Date Last Done Comments BONE DENSITY TESTING 1955 COLON MONITORING 1955 COLONOSCOPY - COLON CA SCREENING 1954 CT COLONOGRAPHY - COLON CA SCREENING 1954 FIT - COLON CA SCREENING 1954 FLEX SIG - COLON CA SCREENING 1955 MAMMOGRAM 1955 HEPATITIS C SCREENING 12/07/1972 Respiratory Syncytial Virus (RSV) Vaccine Pt: or over 60 yrs (1 - Risk 50-74 years 1-dose series) 2004 DTAP/TDAP/TD VACCINES (2 - Td or Tdap) 10/11/2013 10/12/2003 ZOSTER VACCINE (3 of 3) 12/13/2020 10/19/19 21, 10/18/2020, 04/02/2020 SCREENING FOR DIABETES 10/25/2023 DEPRESSION SCREENING 04/19/2024 MEDICARE AWV CALENDAR YEAR 2024 COVID-19 VACCINE ( season) 2024 03/12/2024, 03/11/2024, 09/26/2021, Additional history exists INFLUENZA VACCINE (#1) 2024 [...] on patient's age to complete this topic Procedures Procedure Name Priority Date/Time Associated Diagnosis Comments AUDIOLOGY/TYMPANOME TRY ORDER Routine 04/09/2025 10:55 AM WALL WASHER from Last 3 Months Results * Audiology/Tympanometry Order (04/09/2025 10:55 AM WALL WASHER) Hannah Burden AuD - 04/09/2025 10:55 AM WALL WASHER History: Pinky Castanead arrived for a hearing evaluation. Patient reports no hearing in the right ear since childhood, which was diagnosed when she was [age] years old and was suspected to be present at . She has never had any amplification for that ear. She denies tinnitus, dizziness, and otalgia. There is not a history of noise exposure. There is a family history of hearing loss. There is not a history of surgery on either ear(s). Results: Puretone air/bone conduction testing revealed a profound SN hearing loss in the right ear and a normal sloping to mild SN hearing loss in the left ear. Speech understanding was excellent in the left ear and could not be evaluated in the right. Immittance measures revealed a Type A tympanogram in the right ear, indicating normal middle ear function. Results for the left ear revealed a Type A tympanogram, indicating normal middle ear function in that ear. These results were discussed in detail with the patient and all pertinent questions were answered. Recommendations: 1) ENT consult. 2) Re check per medical recommendation, annually, or if a change in hearing is suspected. 3) Hearing protection in noise. 4) Amplification options may include CROS RODRIGUEZ or potentially CI pending interest/medical clearance. Mikie Vinson. [facility]-A Clinical Emergency Room Rn [facility]-Department of Otol[facility]ology/[facility] [address] [place] [address] ([facility]) [place] [address] Hannah Barajas Mikie AUDIOLOGY SERVICES ORDERABLES F inal Result from Last 3 Months Insurance MEDICARE * Guarantor: PINKY CASTANEDA Account Type Relation to Patient Date of Phone Billing Address Personal/Family 1955 [id number] [place] [address] * Guarantor: PINKY CASTANEDA Account Type Relation to Patient Date of Phone Billing Address Personal/Family [address] [place] [address] Care Teams Test Kitchen Home Economist Relationship Specialty Start Date End Date Tara Arrieta MD [address] [place] [address] PCP - General Family Medicine 10/25/23
[2025-04-18 15:55] LABS: Influenza A QL RT-PCR Negative (Negative); Influenza B QL RT-PCR Negative (Negative); SARS-CoV-2 RNA PCR Negative (Negative)
== END 2025-04-18 14:14 | disposition home or self-care (01) ==
PROVIDERS: PCP Student in an Organized Health Care Education/Training Program
DX: J06.9 Acute upper respiratory infection, unspecified (principal); Z20.822 Contact with and (suspected) exposure to COVID-19
CPT/HCPCS: 87636